=== PATIENT | female | born 1945 | race African-American/Black ===

== ENCOUNTER 2017-07-16 13:02 | Outpatient (POV) | payer MEDICARE, SELFPAY | END 2017-07-16 16:37 | disposition home or self-care (01) | PROVIDERS: PCP Family Medicine; Visit Provider Podiatrist | DX: I73.9 Peripheral vascular disease, unspecified (principal); E11.8 Type 2 diabetes mellitus with unspecified complications | CPT/HCPCS: 99203; G0127 ==

== ENCOUNTER 2017-10-18 14:15 | Outpatient (RCR) | payer MEDICARE, MEDICAID, SELFPAY | END 2018-01-28 10:46 | LOC: PT 14:15 | PROVIDERS: Visit Provider Internal Medicine | DX: Z95.5 Presence of coronary angioplasty implant and graft (principal) | CPT/HCPCS: 93798 ==

== ENCOUNTER → 2017-12-10 14:36 | Outpatient (CLI) | payer MEDICARE, MEDICAID, SELFPAY ==
[2017-12-10 14:54] LABS: Basophils % 0.6 % (0.1-2.0); Eosinophils # 0.5 K/mm3 (0.0-0.4); Eosinophils % 7.3 % (0.1-12.0); Hematocrit 45.4 % (37.0-47.0); Hemoglobin 14.4 g/dL (12.2-16.2); Lymphocytes # 1.7 K/mm3 (0.7-4.5); Lymphocytes % 27.1 K/mm3 (10-50); Mean Corpuscular HGB Conc 31.8 g/dL (31.8-35.4); Mean Corpuscular Hemoglobin 27.8 pg (27.0-31.2); Mean Corpuscular Volume 87.5 fl (81-99); Mean Platelet Volume 7.3 fl (7.4-10.4); Monocytes # 0.4 K/mm3 (0.1-1.0); Monocytes % 6.3 % (1.7-9.3); Neutrophils # 3.8 K/mm3 (1.8-7.8); Neutrophils % 58.7 % (37.0-80.0); Platelet Count 212 K/mm3 (142-424); Red Blood Count 5.19 M/mm3 (4.20-5.40); Red Cell Distribution Width 14.2 % (11.5-17.5); White Blood Count 6.4 K/mm3 (4.8-10.8)
[2017-12-10 16:18] LABS: Hemoglobin A1C 6.5 % (0.0-7.0)
[2017-12-10 17:16] LABS: Alanine Aminotransferase 23 U/L (12-78); Albumin Level 3.5 gm/dL (3.4-5.0); Albumin/Globulin Ratio 1.1 (1.1-1.8); Alkaline Phosphatase 154 U/L (46-116); Anion Gap 8.7 mEq/L (5-15); Aspartate Amino Transferase 20 U/L (15-37); Bilirubin,Total 0.6 mg/dL (0.2-1.0); Blood Urea Nitrogen 15 mg/dL (7-18); Carbon Dioxide 33 mmol/L (21.0-32.0); Chloride 106 mmol/L (98-107); Creatinine,Serum 0.73 mg/dL (0.55-1.02); Estimated Glomerular Filt Rate 78 ml/min (>60); GFR (African American) 95 ML/MIN (>60); Globulin 3.2 gm/dl (1.3-3.2); Glucose 91 mg/dL (74-106); Potassium 3.7 mmoL/L (3.5-5.1); Sodium 144 mmol/L (136-145); Thyroid Stimulating Hormone 0.85 uIU/ml (0.358-3.740); Total Protein,Serum 6.7 gm/dL (6.4-8.2)
[2017-12-12 11:53] LABS: Vitamin B12 832 pg/mL (232-1245)
== END ==
PROVIDERS: Visit Provider Psychiatry & Neurology Behavioral Neurology & Neuropsychiatry
DX: G30.9 Alzheimer's disease, unspecified (principal); E11.8 Type 2 diabetes mellitus with unspecified complications
CPT/HCPCS: 36415; 80053; 82607; 83036; 84443; 85025

== ENCOUNTER → 2018-01-28 15:47 | Outpatient (CLI) | payer MEDICARE, MEDICAID, SELFPAY ==
--- NOTE | 2018-01-28 15:49 | XR_ITS ---
XR foot wt bearing RT 3V HISTORY: Right foot pain ORDERING PHYSICIAN: Rosibel Rausch DPM PATIENT AGE: 72 years COMPARISON: 03/30/2016 FINDINGS: There has been an interval amputation at the junction of the mid and distal shaft of the first metatarsal. There is some mild calcific debris about the amputation site. No acute erosive changes are evident. There is generalized vascular calcification. Flexion deformity involves the toes. IMPRESSION: Status post amputation at the mid to distal shaft of the first metatarsal as described above
== END ==
PROVIDERS: PCP Family Medicine; Visit Provider Podiatrist
DX: Z51.89 Encounter for other specified aftercare (principal)
CPT/HCPCS: 73630

== ENCOUNTER → 2018-01-28 16:15 | Outpatient (CLI) | payer MEDICARE, MEDICAID, SELFPAY ==
[2018-01-28 16:28] LABS: Basophils % 0.6 % (0.1-2.0); Eosinophils # 0.4 K/mm3 (0.0-0.4); Eosinophils % 5.5 % (0.1-12.0); Hematocrit 49.5 % (37.0-47.0); Hemoglobin 15.5 g/dL (12.2-16.2); Lymphocytes # 1.5 K/mm3 (0.7-4.5); Lymphocytes % 20.6 K/mm3 (10-50); Mean Corpuscular HGB Conc 31.2 g/dL (31.8-35.4); Mean Corpuscular Hemoglobin 27.9 pg (27.0-31.2); Mean Corpuscular Volume 89.4 fl (81-99); Mean Platelet Volume 7.3 fl (7.4-10.4); Monocytes # 0.5 K/mm3 (0.1-1.0); Monocytes % 6.6 % (1.7-9.3); Neutrophils # 4.9 K/mm3 (1.8-7.8); Neutrophils % 66.7 % (37.0-80.0); Platelet Count 231 K/mm3 (142-424); Red Blood Count 5.54 M/mm3 (4.20-5.40); Red Cell Distribution Width 14.7 % (11.5-17.5); White Blood Count 7.3 K/mm3 (4.8-10.8)
[2018-01-28 17:58] LABS: Erythrocyte Sedimentation Rate 12 mm/hr (0-30)
[2018-01-28 19:42] LABS: Alanine Aminotransferase 25 U/L (12-78); Albumin/Globulin Ratio 1.1 (1.1-1.8); Alkaline Phosphatase 185 U/L (46-116); Anion Gap 10.8 mEq/L (5-15); Aspartate Amino Transferase 29 U/L (15-37); Bilirubin,Total 0.3 mg/dL (0.2-1.0); Blood Urea Nitrogen 16 mg/dL (7-18); Calcium 9.3 mg/dL (8.5-10.1); Carbon Dioxide 33 mmol/L (21.0-32.0); Chloride 103 mmol/L (98-107); Creatinine,Serum 0.84 mg/dL (0.55-1.02); Estimated Glomerular Filt Rate 67 ml/min (>60); GFR (African American) 81 ML/MIN (>60); Globulin 3.8 gm/dl (1.3-3.2); Glucose 81 mg/dL (74-106); Potassium 3.8 mmoL/L (3.5-5.1); Sodium 143 mmol/L (136-145); Total Protein,Serum 7.8 gm/dL (6.4-8.2)
[2018-01-28 19:49] LABS: C-Reactive Protein < 0.2 mg/L (0.0-0.9)
== END ==
PROVIDERS: PCP Family Medicine; Visit Provider Podiatrist
DX: Z51.89 Encounter for other specified aftercare (principal); E11.8 Type 2 diabetes mellitus with unspecified complications
CPT/HCPCS: 36415; 73630; 80053; 85025; 85651; 86140

== ENCOUNTER → 2018-02-20 10:06 | Outpatient (CLI) | payer MEDICARE, MEDICAID, SELFPAY ==
--- NOTE | 2018-02-20 10:11 | MR_ITS ---
MR foot RT wo/w con CLINICAL INDICATION: Recent amputation with redness and swelling on top of second toe ITS.REASON: osteomyelitis ORDERING PHYSICIAN: Rosibel Rausch DPM PATIENT AGE: 72 years TECHNIQUE: Routine multiplanar multiecho sequences are performed without and with contrast. COMPARISON: 01/28/2018 xray FINDINGS: There is been a prior amputation at the mid to distal aspect of the first metatarsal. Along the plantar aspect of the amputation site there is decrease T1 and T2 signal some of which may be due to balled up tendon. This does not demonstrate contrast enhancement. Some of this could be hypertrophic changes as well/postsurgical scarring There is flexion deformity involving the distal aspect of the second toe. There is ill definition of the distal phalanx of the second toe on the T1-weighted images and hypointense to the normal signal in the proximal mid phalanx becoming hyperintense on the T2-weighted images with some enhancement distally suggesting osteomyelitis. There is subcutaneous T2 signal along the plantar aspect of the second digit suggesting cellulitis. There is slight increased T2 signal involving the middle phalanx of the second toe with unremarkable T1 signal which may be due to some mild edema. No definite enhancement. IMPRESSION: 1. The findings are suspicious for osteomyelitis of the distal phalanx of the second toe with associated cellulitis. 2. Prior amputation of the mid to distal of the first metatarsal with nonspecific decreased T1 and T2 signal along the plantar surface of the amputation site which could be due to hypertrophic change or scarring along with balled up tendon 3. Mild edema of the middle phalanx of the second toe. Osteomyelitis here cannot totally be excluded as well
== END ==
PROVIDERS: PCP Family Medicine; Visit Provider Podiatrist
DX: E11.9 Type 2 diabetes mellitus without complications (principal); M86.8X7 Other osteomyelitis, ankle and foot
CPT/HCPCS: 73720; A9576

== ENCOUNTER → 2018-03-02 18:12 | Outpatient (REF) | payer MEDICARE, MEDICAID, SELFPAY ==
[2018-03-02 18:31] LABS: Microscopic, Urine URINE MICROSCOPIC (MICROSCOPIC)
[2018-03-02 19:13] LABS: Appearance,Urine SL CLOUDY (Clear); Bilirubin,Urine Negative (Negative); Blood, Urine 1+ (Negative); Color,Urine YELLOW (Yellow); Glucose,Urine (UA) TRACE (Negative); Ketones,Urine Negative (Negative); Leukocyte Esterase,Urine 2+ (Negative); Nitrate,Urine Negative (Negative); Protein,Urine Negative (Negative); Urobilinogen,Urine 0.2 EU/dl (0.2)
[2018-03-02 19:15] LABS: Amorphous Sediment,Urine Trace /lpf
== END ==
LOC: LAB 18:12
PROVIDERS: Visit Provider Family Medicine
DX: N39.0 Urinary tract infection, site not specified (principal)
CPT/HCPCS: 81001; 87086

== ENCOUNTER → 2018-03-03 15:15 | Outpatient (CLI) | payer MEDICARE, MEDICAID, SELFPAY ==
--- NOTE | 2018-03-03 15:46 | XR_ITS ---
XR chest 2V HISTORY: ITS.REASON: HTN,TYPE II DIABETES ORDERING PHYSICIAN: Rosibel Rausch DPM PATIENT AGE: 72 years COMPARISON: None FINDINGS: The cardiomediastinal silhouette and pulmonary vascularity are within normal limits. The lungs are clear without infiltrates, suspicious nodules, or pleural effusions. No acute bony abnormalities. Clips are present in the right axillary region. IMPRESSION: Negative chest, no acute finding
[2018-03-03 16:16] LABS: Basophils % 0.1 % (0.1-2.0); Eosinophils # 0.2 K/mm3 (0.0-0.4); Eosinophils % 2.6 % (0.1-12.0); Hematocrit 40.6 % (37.0-47.0); Hemoglobin 12.9 g/dL (12.2-16.2); Lymphocytes # 1.2 K/mm3 (0.7-4.5); Lymphocytes % 15.3 K/mm3 (10-50); Mean Corpuscular HGB Conc 31.7 g/dL (31.8-35.4); Mean Corpuscular Hemoglobin 28.2 pg (27.0-31.2); Mean Corpuscular Volume 89.1 fl (81-99); Mean Platelet Volume 7.5 fl (7.4-10.4); Monocytes # 0.4 K/mm3 (0.1-1.0); Monocytes % 5.2 % (1.7-9.3); Neutrophils # 6.2 K/mm3 (1.8-7.8); Neutrophils % 76.7 % (37.0-80.0); Platelet Count 185 K/mm3 (142-424); Red Blood Count 4.56 M/mm3 (4.20-5.40); Red Cell Distribution Width 15.6 % (11.5-17.5); White Blood Count 8.1 K/mm3 (4.8-10.8)
[2018-03-03 17:17] LABS: Alanine Aminotransferase 45 U/L (12-78); Albumin Level 3.4 gm/dL (3.4-5.0); Albumin/Globulin Ratio 1.2 (1.1-1.8); Alkaline Phosphatase 140 U/L (46-116); Anion Gap 10.6 mEq/L (5-15); Aspartate Amino Transferase 37 U/L (15-37); Bilirubin,Total 0.4 mg/dL (0.2-1.0); Blood Urea Nitrogen 16 mg/dL (7-18); Carbon Dioxide 30 mmol/L (21.0-32.0); Chloride 107 mmol/L (98-107); Creatinine,Serum 0.73 mg/dL (0.55-1.02); Estimated Glomerular Filt Rate 78 ml/min (>60); GFR (African American) 95 ML/MIN (>60); Globulin 2.9 gm/dl (1.3-3.2); Glucose 136 mg/dL (74-106); Potassium 3.6 mmoL/L (3.5-5.1); Sodium 144 mmol/L (136-145); Total Protein,Serum 6.3 gm/dL (6.4-8.2)
[2018-03-03 17:20] LABS: Hemoglobin A1C 6.5 % (0.0-7.0)
== END ==
PROVIDERS: Visit Provider Podiatrist
DX: Z01.818 Encounter for other preprocedural examination (principal); M86.9 Osteomyelitis, unspecified; Z79.899 Other long term (current) drug therapy
CPT/HCPCS: 36415; 71046; 80053; 83036; 85025

== ENCOUNTER → 2018-03-27 09:20 | Outpatient (CLI) | payer MEDICARE, MEDICAID, SELFPAY ==
--- NOTE | 2018-03-27 09:21 | XR_ITS ---
XR foot wt bearing RT 3V HISTORY: Follow-up surgery ITS.REASON: postop views ORDERING PHYSICIAN: Rosibel Rausch DPM PATIENT AGE: 72 years COMPARISON: 03/07/2018 FINDINGS: Status post amputation at the second metatarsophalangeal joint and at the distal aspect of the first metatarsal. The amputation site has an unremarkable appearance with no evidence of bony erosion.. Minimal soft tissue calcification is present at the distal aspect of the first metatarsal amputation site. IMPRESSION: Status post amputation at the second MTP and distal first metatarsal with no acute finding
== END ==
PROVIDERS: Visit Provider Podiatrist
DX: Z98.890 Other specified postprocedural states (principal); M79.671 Pain in right foot
CPT/HCPCS: 73630

== ENCOUNTER → 2018-07-08 06:57 | Outpatient (CLI) | payer MEDICARE, MEDICAID, SELFPAY ==
--- NOTE | 2018-07-08 06:59 | NM_ITS ---
History and Indications: Coronary artery disease, hypertension, diabetes, chest pain Procedure: Patient received a 0.4 mg of intravenous Lexiscan, resting heart rate was 78 bpm, resting blood pressure 135/69, with Lexiscan maximum heart rate achieved was 80 bpm is less than 85% of the maximum predicted heart rate and a blood pressure was 152/68. With Lexiscan no symptoms recorded Electrocardiogram: Resting electrocardiogram showed sinus rhythm first degree AV block premature atrial complexes nonspecific changes. Interventricular conduction delay, with Lexiscan less than 1.[address] segment depression noted from the baseline EKG. The EKG portion of the Lexiscan Myoview is nondiagnostic secondary to baseline abnormal EKG. Cardiac stress and resting SPECT images: Cardiac stress and rest SPECT images were obtained using Tc 99 Myoview 31.2 mCi at stress than 10.2 mCi at rest, gated SPECT further analysis of segmental wall motion and calculation of the ejection fraction also done. Cardiac stress and rest SPECT images show uniform myocardial activity without segmental perfusion abnormality, computer derived ejection fraction is over 65% with no regional wall motion abnormality, right ventricle is normal size and contractility. Conclusion: 1. The EKG portion of the Lexiscan Myoview is nondiagnostic. 2. No scintigraphic evidence of reversible ischemia seen, computer derived ejection fraction is over 65% regional wall motion abnormality, right ventricle is normal size and contractility. 3. Normal Lexiscan Myoview study
--- NOTE | 2018-07-08 08:30 | HMH.ITSHM ---
ASA BISOPROLOL CLOPIDOGREL DONEPEZIL ISOSORBIDE LANTUS LOSARTAN MIRTAZAPINE PRAVASTATIN TRAMADOL NOVOLOG
== END ==
PROVIDERS: PCP Family Medicine; Visit Provider Internal Medicine
DX: E11.9 Type 2 diabetes mellitus without complications (principal); F03.90 Unspecified dementia, unspecified severity, without behavioral disturbance, psychotic disturbance, mood disturbance, and anxiety; F17.200 Nicotine dependence, unspecified, uncomplicated; I11.9 Hypertensive heart disease without heart failure; I20.9 Angina pectoris, unspecified; I25.10 Atherosclerotic heart disease of native coronary artery without angina pectoris; I77.9 Disorder of arteries and arterioles, unspecified; R94.31 Abnormal electrocardiogram [ECG] [EKG]
CPT/HCPCS: 78452; 93017; A9502; J2785

== ENCOUNTER → 2018-08-27 11:51 | Outpatient (CLI) | payer MEDICARE, MEDICAID, SELFPAY ==
[2018-08-27 12:18] LABS: Basophils % 0.6 % (0.1-2.0); Eosinophils # 0.4 K/mm3 (0.0-0.4); Eosinophils % 4.6 % (0.1-12.0); Hematocrit 39.9 % (37.0-47.0); Hemoglobin 12.4 g/dL (12.2-16.2); Lymphocytes # 1.3 K/mm3 (0.7-4.5); Lymphocytes % 16.3 % (10-50); Mean Corpuscular HGB Conc 31.1 g/dL (31.8-35.4); Mean Corpuscular Hemoglobin 27.2 pg (27.0-31.2); Mean Corpuscular Volume 87.4 fl (81-99); Mean Platelet Volume 6.8 fl (7.4-10.4); Monocytes # 0.4 K/mm3 (0.1-1.0); Monocytes % 4.7 % (1.7-9.3); Neutrophils # 5.7 K/mm3 (1.8-7.8); Neutrophils % 73.8 % (37.0-80.0); Platelet Count 236 K/mm3 (142-424); Red Blood Count 4.56 M/mm3 (4.20-5.40); Red Cell Distribution Width 15.2 % (11.5-17.5); White Blood Count 7.7 K/mm3 (4.8-10.8)
[2018-08-27 13:10] LABS: Hemoglobin A1C 7.8 % (0.0-7.0)
[2018-08-27 14:18] LABS: Erythrocyte Sedimentation Rate 60 mm/hr (0-30)
[2018-08-27 16:04] LABS: Alanine Aminotransferase 41 U/L (12-78); Albumin Level 3.2 gm/dL (3.4-5.0); Albumin/Globulin Ratio 0.9 (1.1-1.8); Alkaline Phosphatase 153 U/L (46-116); Anion Gap -12.2 mEq/L (5-15); Aspartate Amino Transferase 37 U/L (15-37); Bilirubin,Total 0.4 mg/dL (0.2-1.0); Blood Urea Nitrogen 16 mg/dL (7-18); Calcium 8.9 mg/dL (8.5-10.1); Carbon Dioxide 33 mmol/L (21.0-32.0); Chloride 110 mmol/L (98-107); Creatinine,Serum 0.72 mg/dL (0.55-1.02); Estimated Glomerular Filt Rate 80 ml/min (>60); GFR (African American) 96 ML/MIN (>60); Globulin 3.6 gm/dl (1.3-3.2); Glucose 211 mg/dL (74-106); Sodium 128 mmol/L (136-145); Total Protein,Serum 6.8 gm/dL (6.4-8.2)
[2018-08-27 16:17] LABS: Potassium 2.8 mmoL/L (3.5-5.1)
[2018-08-28 00:33] LABS: C-Reactive Protein < 0.2 mg/L (0.0-0.9)
== END ==
PROVIDERS: Visit Provider Podiatrist
DX: Z51.89 Encounter for other specified aftercare (principal); E11.8 Type 2 diabetes mellitus with unspecified complications
CPT/HCPCS: 36415; 80053; 83036; 85025; 85651; 86140; 87070; 87077; 87186; 87205

== ENCOUNTER → 2018-09-23 12:56 | Outpatient (CLI) | payer MEDICARE, MEDICAID, SELFPAY | PROVIDERS: PCP Family Medicine; Visit Provider Podiatrist | DX: L97.512 Non-pressure chronic ulcer of other part of right foot with fat layer exposed (principal); L03.115 Cellulitis of right lower limb; E08.621 Diabetes mellitus due to underlying condition with foot ulcer; Z79.4 Long term (current) use of insulin ==

== ENCOUNTER → 2018-10-28 08:41 | Outpatient (CLI) | payer MEDICARE, MEDICAID, SELFPAY ==
--- NOTE | 2018-10-28 08:44 | MR_ITS ---
MR foot RT wo/w con HISTORY: Diabetic foot ulcer, prior amputation ITS.REASON: diabetic foot ulcer ORDERING PHYSICIAN: Rosibel Rausch DPM PATIENT AGE: 73 years Comparison: 03/27/2018 TECHNIQUE: Standard multiplanar multiecho sequences are performed without and with gadolinium enhancement. FINDINGS: There has been amputation at the distal aspect of the first metatarsal and at the second metatarsophalangeal junction. At the stump of the first metatarsal there is some lobular thickening of the tissues which is hypointense on the STIR images and isointense on the T1-weighted images. This may be due to an area of callus formation or fibrosis/scarring. This does not demonstrate contrast enhancement. This area measures approximately 2 x 1.8 cm No abnormal signal intensity evident that would indicate osteomyelitis. No abscess. No fracture or other significant anomalies. There is generalized motion artifact which does decrease sensitivity of the exam. IMPRESSION: Status post a dilatation at the distal aspect of the first metatarsal with area of callus formation versus scarring or fibrosis at the distal aspect of the first metatarsal. Status post amputation at the second MTP junction No convincing evidence of osteomyelitis
== END ==
PROVIDERS: PCP Family Medicine; Visit Provider Podiatrist
DX: L97.512 Non-pressure chronic ulcer of other part of right foot with fat layer exposed; Z79.4 Long term (current) use of insulin; L89.610 Pressure ulcer of right heel, unstageable; I77.9 Disorder of arteries and arterioles, unspecified; E11.621 Type 2 diabetes mellitus with foot ulcer
CPT/HCPCS: 73720; A9576

== ENCOUNTER → 2018-12-10 14:27 | Outpatient (CLI) | payer MEDICARE, MEDICAID, SELFPAY ==
--- NOTE | 2018-12-10 14:32 | US_ITS ---
US Arterial Ankle Brachial Ind History: ITS.REASON: Diabetic ulcers, smoker, hypertension, peripheral vascular disease, bilateral claudication, bilateral ulcers ORDERING PHYSICIAN: Rosibel Rausch DPM PATIENT AGE: 73 years TECHNIQUE: Segmental pressures obtained of both right and left leg. These are compared to brachial blood pressure to yield index at each level sampled including summary KAVITA. The data sheets from the procedure are available in PACS FINDINGS Rest study only performed today No prior studies available for comparison. Blood pressures reported are in millimeters mercury. RIGHT LEG KAVITA = 0.4. RIGHT LEG TBI=first and second toe amputated Brachial BP: 168 Thigh BP: 82 Calf BP: 77 Ankle PT: Not obtained Ankle DP : 62 LEFT LEG KAVITA = 0.6 LEFT LEG TBI= 0.4 Brachial BPD: 167 Thigh BP: 76 Calf BP: 83 Ankle PT:Not obtained due to multiple ulcers Ankle DP: 104 Digit = 58 Pulses and waveforms: Diminished, absent posterior tibial pulse in right lower extremity IMPRESSION: The right KAVITA is low at 0.4 indicating severe peripheral arterial disease The left KAVITA is moderately low at 0.6 indicating moderate arterial disease
== END ==
PROVIDERS: PCP Family Medicine; Visit Provider Podiatrist
DX: E08.621 Diabetes mellitus due to underlying condition with foot ulcer (principal); I73.9 Peripheral vascular disease, unspecified; I77.9 Disorder of arteries and arterioles, unspecified; L89.610 Pressure ulcer of right heel, unstageable; L97.512 Non-pressure chronic ulcer of other part of right foot with fat layer exposed
CPT/HCPCS: 93922

== ENCOUNTER 2018-12-30 16:40 | Observation (INO) ==
[2018-12-30 17:15] LABS: Basophils % 0.4 % (0.1-2.0); Eosinophils # 0.4 K/mm3 (0.0-0.4); Eosinophils % 4.3 % (0.1-12.0); Hematocrit 42.9 % (37.0-47.0); Hemoglobin 13.1 g/dL (12.2-16.2); Lymphocytes # 1.4 K/mm3 (0.7-4.5); Mean Corpuscular HGB Conc 30.6 g/dL (31.8-35.4); Mean Corpuscular Hemoglobin 25.4 pg (27.0-31.2); Mean Platelet Volume 6.8 fl (7.4-10.4); Monocytes # 0.7 K/mm3 (0.1-1.0); Neutrophils % 71.3 % (37.0-80.0); Platelet Count 248 K/mm3 (142-424); Red Blood Count 5.17 M/mm3 (4.20-5.40); Red Cell Distribution Width 15.7 % (11.5-17.5); White Blood Count 8.5 K/mm3 (4.8-10.8)
--- NOTE | 2018-12-30 17:30 | Procedure Note ---
[facility] Wound Procedure - Subjective History Subjective: B/L LE arterial ulcers - Wound Left Lower Anterior Distal [place] Wound Type: arterial ulcers Is This a Chronic Wound: Yes Wound Staging: Unstageable
[2018-12-30 17:31] LABS: Albumin Level 2.9 gm/dL (3.4-5.0); Albumin/Globulin Ratio 0.6 (1.1-1.8); Anion Gap 10.8 mEq/L (5-15); Bilirubin,Total 0.3 mg/dL (0.2-1.0); C-Reactive Protein 3.3 mg/L (0.0-0.9); Calcium 9.1 mg/dL (8.5-10.1); Globulin 4.6 gm/dl (1.3-3.2); Potassium 3.8 mmoL/L (3.5-5.1); Total Protein,Serum 7.5 gm/dL (6.4-8.2)
--- NOTE | 2018-12-30 17:36 | Progress Note ---
Subjective Date: 12/30/18 Time: 17:32 Principal diagnosis: B/L LE arterial ulcers, cellulitis Interval history: Mrs. Mendez presents to the ER today from group home for multiple arterial wound sites on both lower extremities. Patient is demented. She c/o some pain to the legs. Family at bedside. They report worsening discoloration and new draining wounds. Significant past medical history including atherosclerotic Heart Disease, Coronary Artery Disease, Cerebrovascular Accident, Diabetes Mellitus Type 2, Hypertension, Peripheral Artery Disease, Peripheral Vascular Disease. Patient had peripheral st[place] [address] Vazquez. The stents occluded and she was seen by Dr. Manjarrez, vascular surgeon in [place]. He had a duplex done 12/18/18. Conclusion was SFA-popliteal artery is occluded with no successful revascularization possible. Low healing potential. Patient high risk for above-knee amputation. PN: Obj Ex Vital signs: Temp Pulse Resp BP Pulse Ox 98.4 F 76 18 154/59 H 100 12/30/18 16:41 12/30/18 16:41 12/30/18 16:41 12/30/18 16:41 12/30/18 16:41 - Constitutional no acute distress - Routine HEENT Exam Head: Present: normocephalic - Routine Neck Exam Present: supple - Routine Respiratory Exam Absent: respiratory distress - Routine Cardiovascular Exam Absent: JVD - Routine Abdominal Exam Present: soft. Absent: guarding - Routine Rectal Exam Patient deferred: visual exam - Routine Exam Patient deferred: external exam - Routine Extremities Exam Present: edema, extremity cold to touch, amputation. Absent: pulses intact, normal capillary refill - Detailed Lower Extremity Exam Lower leg: Bilateral swelling, Bilateral tenderness, Bilateral wound Ankle: Bilateral swelling, Bilateral wound Foot/Toes: Right calcaneal tenderness, Right tenderness, Right wound, Bilateral erythema, Bilateral swelling Comments: B/l LE cold with CFT delayed. Weakly palpable pedal pulses, bilaterally. Right > left foot edema and erythema. Pain to dorsal midfoot and right lateral heel. Wound noted to right dorsal midfoot and heel. Heel has devin wound maceration, boggy and purulence. New arterial wound noted to right anterior renner. The area has fluctance and purulence (wound culture taken). There are arterial wounds noted to left anterior renner. Darkening skin color b/l. Light touch protective sensation diminished. Previous right 1-2 toe amps. Progress Note: A&P (1) Bilateral leg pain Status: Acute Current Visit: No (2) Diabetic foot ulcers Status: Acute Current Visit: No (3) Diabetic neuropathy Status: Acute Current Visit: No (4) Edema Status: Acute Current Visit: No (5) Dementia Status: Chronic Current Visit: No (6) PAD (peripheral artery disease) Status: Chronic Current Visit: No (7) Tobacco dependence syndrome Status: Chronic Current Visit: No Assessment and Plan for All Diagnoses:: Right dorsal midfoot and b/l anterior renner arterial ulcers, right heel pressure ulcer: Discussed with the patient/family the importance of controlling the infection. I explained without good blood flow the antibiotics will not fully get to the wound sites. I explained the results of the vascular duplex with Dr. Manjarrez in [place]. There is low healing potential and is high risk for [id number] amputation. They verbalized understanding. I explained that if we surgically debride the arterial ulcers there is a chance that they will not heal, can get bigger and cause worsening/new arterial wounds. Infection is not controlled there is a chance that it could make her septic. I also explained that she may be high risk to have anesthesia for amputation surgery. Power of Fret[employer] Inspector was notified, present at bedside. The family will discuss plan of care today and tomorrow. They will also discuss whether they want her to have a different CODE STATUS. 1. Dressing applied: betadine DSD 2. Off load heels to prevent further breakdown 3. Discuss POC with Dr. Delgado 4. Consult Dr. Campoverde for possible AKA
--- NOTE | 2018-12-30 18:08 | Emergency Department Note ---
ED Disposition Clinical Impression: Bilateral leg ulcer Qualifiers: Non-pressure ulcer stage: unspecified non-pressure ulcer stage Qualified Code(s): L97.919 - Non-pressure chronic ulcer of unspecified part of right lower leg with unspecified severity Disposition: Admitted as Observation Condition on Discharge: Fair - Critical Care Critical Care Time: No Attestation: On 12/30/18, the high probability of a clinically significant, sudden or life threatening deterioration of the following system(s) required my full and direct attention, intervention and personal management. The time I documented below is in addition to time spent performing reported procedures but includes the following listed in this critical care notation. Medical Decision Making - Wesley Inquiry Pt receiving controlled substance: No Vital Signs: 12/30/18 16:41 12/30/18 19:33 12/30/18 19:35 Temperature 98.4 F 98.5 F Temperature Source Oral Oral Pulse Rate 74 Pulse Rate [Right Brachial] 76 Respiratory Rate 18 15 Blood Pressure 153/67 H Blood Pressure [Right Arm] 154/59 H Blood Pressure Mean [Right Arm] 90 Blood Pressure Source [Right Arm] Automatic Cuff Blood Pressure Position [Right Arm] Supine 02 Sat by Pulse Oximetry 100 Oxygen Delivery Method Room Air Room Air Room Air - Lab Data Lab Results 12/30/18 17:00: WBC 8.5, RBC 5.17, Hgb 13.1, Hct 42.9, MCV 83.0, MCH 25.4 L, MCHC 30.6 L, RDW 15.7, Plt Count 248, MPV 6.8 L, Neut % (Auto) 71.3, Lymph % (Auto) 16.0, Otero % (Auto) 8.0, Eos % (Auto) 4.3, Baso % (Auto) 0.4, Neut # (Auto) 6.0, Lymph # (Auto) 1.4, Otero # (Auto) 0.7, Eos # (Auto) 0.4, Baso # (Auto) 0.0 12/30/18 17:00: ESR 34 H 12/30/18 17:00: Sodium 140, Potassium 3.8, Chloride 102, Carbon Dioxide 31, Anion Gap 10.8, BUN 14, Creatinine 0.78, Estimated Creat Clear 56, Estimated GFR 72, Est GFR ( Amer) 88, Glucose 154 H, Calcium 9.1, Total Bilirubin 0.3, AST 30, ALT 42, Alkaline Phosphatase 195 H, C-Reactive Protein 3.3 H, Total Protein 7.5, Albumin 2.9 L, Globulin 4.6 H, Albumin/Globulin Ratio 0.6 L 12/30/18 17:00: Lactate 1.1 Result diagrams: 12/30/18 17:00 12/30/18 17:00 Orders (Tests/Meds): ED MEDICATIONS Generic Name Dose Route Start Last Admin Trade Name Rob PRN Reason Stop Dose Admin Acetaminophen 500 mg 12/30/18 20:02 Tylenol 500mg Tablet PO 01/29/19 20:01 Q6H PRN Fever > 100.4 Hydrocodone Bitart/Acetaminophen 1 tab 12/30/18 21:00 12/30/18 20:37 Sanford 5/325mg Tablet PO 01/29/19 20:59 1 tab BID ADRIANE Administration Amlodipine Besylate 7.5 mg 12/31/18 09:00 Norvasc 2.5mg Tablet PO 01/30/19 08:59 DAILY ADRIANE Clopidogrel Bisulfate 75 mg 12/31/18 09:00 Plavix 75mg Tablet PO 01/30/19 08:59 DAILY ADRIANE Donepezil HCl 10 mg 12/30/18 20:02 Aricept 10mg Tablet PO 01/29/19 20:01 QHS [facility] Insulin Human Lispro 0 unit 12/30/18 21:00 12/30/18 20:37 Humalog 100 Units/Ml 3ml Vial (Ssi) SQ 01/29/19 20:59 Not Given ACHS ADRIANE Protocol Potassium Chloride 20 meq 12/31/18 09:00 Klor-Con 20meq Tablet PO 01/30/19 08:59 DAILY ADRIANE Sertraline HCl 50 mg 12/30/18 20:02 Zoloft 50mg Tablet PO 01/29/19 20:01 QHS ADRIANE ORDERS Category Date Time Status Consult to Physician [CONS] Routine Cons 12/30/18 20:02 Ordered Fibula/tibia XR right 2 views [XR tibia fibula RT 2V] Exams 12/30/18 17:01 Taken Stat XR foot RT min 3V Routine Exams 12/30/18 17:31 Taken XR tibia fibula LT 2V Stat Exams 12/30/18 17:01 Taken Blood Culture Stat Micro 12/30/18 17:00 Received Wound Culture and Gram Stain Stat Micro 12/30/18 17:29 Received ECG Request by /Antonio Stat Y 12/30/18 17:01 Stop Req - Radiology Data #1 Image(s): Tib/Fib (Bilateral), Foot/Toes (Right) Image Reviewed: Yes I reviewed the patient's radiology image Tib-fib negative bilaterally. No signs of osteomyelitis. Right foot shows previous amputation of second toe and first toe along with distal first metatarsal. No signs of osteomyelitis. Medical Decision Narrative: Dr. Delgado saw the patient in the emergency department before my examination. He requests no antibiotics unless alarmingly elevated white blood cell count. Consultation to Dr. Campoverde. General Adult HPI - General Chief complaint: Extremity Problem,Nontraumatic Stated complaint: Foot ulcers Time Seen by Provider: 12/30/18 17:55 Mode of Arrival: EMS Limitations: Physical Limitations Description of Symptoms (Recalled from ER Triage Doc. by RN): Ulcer on roght foot - History of Present Illness HPI narrative: Br[facility] ulcers on her legs, possible need for amputation. History obtained from patient and family and Dr. Delgado. Family states ulcers have been present since before . Patient currently denies any pain from her legs. Denies fever. Has been treated by Dr. Rausch. Has had prior stents in her legs for peripheral vascular disease, but is not felt to be candidate for further revascularization procedures. - Related Data Home Medications Medication Instructions Recorded Confirmed clopidogrel 75 mg tablet 75 mg PO DAILY tab 02/04/18 12/30/18 donepezil 10 mg tablet 10 mg PO QHS 03/03/18 12/30/18 acetaminophen 500 mg tablet 500 mg PO Q6H PRN 07/01/18 12/30/18 Insulin Aspart [Novolog] 2 unit SQ ACHS 09/04/18 12/30/18 Insulin Glargine,Hum.rec.anlog 20 units SQ HS 09/04/18 12/30/18 [Insulin Glargine 100 Units/mL 3mL flexpen] Potassium Chloride [Klor-con 20 20 meq PO DAILY 09/04/18 12/30/18 mEq tablet] amlodipine 2.5 mg tablet 7.5 mg PO DAILY tab 12/10/18 12/30/18 hydrocodone 5 mg-acetaminophen 325 1 tab PO BID tab 12/15/18 12/30/18 mg tablet sertraline 50 mg tablet 50 mg PO QHS 15 Days #15 tab 12/15/18 12/30/18 Allergies Allergy/AdvReac Type Severity Reaction Status Date / Time codeine Allergy Unknown Verified 12/30/18 16:[address] [facility] History - Hepatitis A Screen Drug use history?: No High risk sexual behaviors?: No History of sexually transmitted infection?: No Currently employed?: No Childcare worker?: No Do you have indoor plumbing?: Yes Do you have electricity?: Yes Attestation statement:: This patient has been screened for Hepatitis A risk factors. I have reviewed the patient's past medical history: Yes Medical History: Reports:: Atherosclerotic Heart Disease, Coronary Artery Diseas e, Cerebrovascular Accident, Diabetes Mellitus Type 2, Hypertension, Peripheral Artery Disease, Peripheral Vascular Disease, Urinary Tract Infection Denies:: Seizures Other Medical History: Denies: Blood Transfusion Reaction Comment: Osteomyelitis of Vertebra, Cerebral Infarction Other Surgeries: Yes: Other Amputation: Yes (great hallux and second toe of the right foot ) Fractures: No Comment: 3 stents in heart, 3 stents in both legs. - Social History Smoking Status: Former smoker Tobacco Type: cigarettes # Packs/Day (cigarettes): 1 Alcohol Intake: never Alcohol Intake Frequency:: other Substance Use Type: denies use Occupational Status: disabled Family Hx:: Non-contributory ROS Obtained: Yes Systems reviewed as appropriate & no additional complaints - Constitutional Constitutional: Denies fever(s) - Cardiovascular Cardiovascular: Denies chest pain - Respiratory Respiratory: No dyspnea - Gastrointestinal Gastrointestingal: Denies: abdominal pain - Musculoskeletal Musculoskeletal: Reports as per HPI Physical Exam - General General appearance: alert, in no apparent distress - Head Head exam: atraumatic, normocephalic - Eye Eye exam: Present: normal appearance, PERRL, EOMI - ENT ENT exam: Present: mucous membranes moist - Neck Neck exam: Present: normal inspection, trachea midline - Chest Chest inspection: Present: normal inspection, symmetric chest wall rise - Respiratory Respiratory exam: Present: normal lung sounds bilaterally. Absent: respiratory distress - Cardiovascular Cardiovascular exam: Present: regular rate, normal rhythm, normal heart sounds - Abdominal Exam Abdominal exam: Present: soft. Absent: distention, tenderness - Extremities Exam Extremities exam: Present: other (See below) - Neurological Exam Neurological exam: Present: alert - Psychiatric Psychiatric exam: Present: normal affect, normal mood - Skin Skin exam: Present: warm, dry - Other Other exam information: Dr. Rausch saw the patient prior to my arrival and has bandaged her legs already. Therefore wounds are not visible to me. I did not take down bandages again since they were just bandaged by her. Her exam is noted below: Lower leg: Bilateral swelling, Bilateral tenderness, Bilateral wound Ankle: Bilateral swelling, Bilateral wound Foot/Toes: Right calcaneal tenderness, Right tenderness, Right wound, Bilateral erythema, Bilateral swelling Comments: B/l LE cold with CFT delayed. Weakly palpable pedal pulses, bilaterally. Right > left foot edema and erythema. Pain to dorsal midfoot and right lateral heel. Wound noted to right dorsal midfoot and heel. Heel has devin wound maceration, boggy and purulence. New arterial wound noted to right anterior renner. The area has fluctance and purulence (wound culture taken). There are arterial wounds noted to left anterior renner. Darkening skin color b/l. Light touch protective sensation diminished. Previous right 1-2 toe amps.
--- NOTE | 2018-12-31 07:30 | History & Physical Report ---
*Admission Date: 12/30/18 *Chief complaint: Leg wounds *History of present illness: 73-year-old female with dementia, diabetes mellitus, peripheral arterial disease was sent to the emergency department yesterday afternoon because of wounds on both lower extremities that were concerning for becoming gangrenous. Patient has known peripheral arterial disease and earlier this month was seen by a vascular surgeon who stated there were no further interventions that could be done to help the patient's lower extremity circulation to aid with wound healing. Should wounds become more severe decision about amputations would have to be made. Staff at patient's snf has been watching her wounds closely and there had been some new wounds as well as a growth in a wound that has been on the dorsum of her right foot. The wounds were foul-smelling and patient was sent to the emergency department. I had been contacted ahead of time about the patient's transfer to the emergency department. Patient has been seeing Dr. Cardona over her right foot wounds and Dr. Cardona was also aware. Dr. Cardona saw the patient in the ER. Workup in the ER showed a normal white blood cell count, with a sed rate of 34, normal electrolytes. X-rays did not show any signs of osteomyelitis. [facility] History I have reviewed the patient's past medical history: Yes Medical History: Reports:: Atherosclerotic Heart Disease, Coronary Artery Disease, Cerebrovascular Accident, Diabetes Mellitus Type 2, Hypertension, Peripheral Artery Disease, Peripheral Vascular Disease, Urinary Tract Infection Denies:: Seizures *Have you ever received a pneumonia vaccine?: Yes *Have you received a flu vaccine this season?: Yes Other Medical History: Denies: Blood Transfusion Reaction Other Surgeries: Yes: Cardiac Catheterization, Other Amputation: Yes (great hallux and second toe of the right foot ) Fractures: No - *Social History Smoking Status: Former smoker Tobacco Type: cigarettes # Packs/Day (cigarettes): 1 Alcohol Intake: never Alcohol Intake Frequency:: other Substance Use Type: denies use *Occupational Status:: disabled Housing: snf *Travel in the last 8 weeks: None - Psychiatric History Expresses thoughts of harming self/others: None Suicide Plan Description: No Plan Family Hx:: Non-contributory Review of Systems - Review of Systems Review of systems:: pertinent systems reviewed and negative unless documented below - Constitutional Denies body ache(s), Denies chills, Denies fever(s) - ENT Denies abnormal hearing - *Cardiovascular Denies chest pain, Denies chest pain at rest, Denies chest pain with activity - *Respiratory Denies change in phlegm color, Denies chest congestion, Denies cough - *Gastrointestinal Denies belching, Denies bloating - *Musculoskeletal Reports abnormal walking - *Neurologic Reports confusion, Denies frequent falls - Psychiatric Reports confusion - Hematologic/Lymphatic Denies easy bleeding - Allergic/Immunologic Denies GI upset with certain foods Meds Home Medications Medication Instructions Recorded Confirmed Type clopidogrel 75 mg tablet 75 mg PO DAILY tab 02/04/18 12/31/18 History donepezil 10 mg tablet 10 mg PO DAILY 03/03/18 12/31/18 History acetaminophen 500 mg tablet 500 mg PO Q6HP PRN 07/01/18 12/31/18 History Insulin Aspart [Novolog] 2 unit SQ ACHS 09/04/18 12/31/18 History Insulin Glargine,Hum.rec.anlog 20 units SQ HS 09/04/18 12/31/18 History [Insulin Glargine 100 Units/mL 3mL flexpen] Potassium Chloride [Klor-con 20 20 meq PO DAILY 09/04/18 12/31/18 History mEq tablet] amlodipine 2.5 mg tablet 7.5 mg PO DAILY tab 12/10/18 12/31/18 History hydrocodone 5 mg-acetaminophen 325 1 tab PO BID tab 12/15/18 12/31/18 History mg tablet sertraline 50 mg tablet 50 mg PO QHS 15 Days #15 tab 12/15/18 12/31/18 History Sulfamethoxazole/Trimethoprim 1 each PO BID 12/31/18 12/31/18 History [Bactrim DS tablet] Allergies Allergy/AdvReac Type Severity Reaction Status Date / Time codeine Allergy Unknown Verified 12/30/18 16:49 Exam Vital signs and Labs for Last 24 Hours: Temp Pulse Resp BP Pulse Ox 98.9 F 84 18 165/82 H 91 L 12/31/18 04:00 12/31/18 04:00 12/31/18 04:00 12/31/18 04:00 12/31/18 04:00 Laboratory Results - last 24 hr 12/30/18 17:00: WBC 8.5, RBC 5.17, Hgb 13.1, Hct 42.9, MCV 83.0, MCH 25.4 L, MCHC 30.6 L, RDW 15.7, Plt Count 248, MPV 6.8 L, Neut % (Auto) 71.3, Lymph % (A uto) 16.0, [place] % (Auto) 8.0, Eos % (Auto) 4.3, Baso % (Auto) 0.4, Neut # (Auto) 6.0, Lymph # (Auto) 1.4, [place] # (Auto) 0.7, Eos # (Auto) 0.4, Baso # (Auto) 0.0 12/30/18 17:00: ESR 34 H 12/30/18 17:00: Sodium 140, Potassium 3.8, Chloride 102, Carbon Dioxide 31, Anion Gap 10.8, BUN 14, Creatinine 0.78, Estimated Creat Clear 56, Estimated GFR 72, Est GFR ( Amer) 88, Glucose 154 H, Calcium 9.1, Total Bilirubin 0.3, AST 30, ALT 42, Alkaline Phosphatase 195 H, C-Reactive Protein 3.3 H, Total P rotein 7.5, Albumin 2.9 L, Globulin 4.6 H, Albumin/Globulin Ratio 0.6 L 12/30/18 17:00: Lactate 1.1 12/30/18 20:25: POC Glucose 137 H 12/31/18 05:52: POC Glucose 174 H I & O for Last 24 hours: Intake & Output 12/28/18 12/29/18 12/30/18 12/31/18 11:59 11:59 11:59 11:59 Intake Total 579 / 579 Balance 579 / 579 Weight 150 lb 4 oz Microbiology Reports for the Last 24 Hours: Microbiology 12/30/18 17:29 Leg,Right Gram Stain - Final 12/30/18 17:29 Leg,Right Wound Culture - Preliminary Narrative: Patient is awake and alert laying in bed this morning. Oropharynx is moist. Neck is without lymphadenopathy or carotid bruits. Lungs are clear to auscultation. Heart has a regular rate and rhythm. Abdomen is soft and nontender. Lower extremities have wound dressings from the mid renner to the ankle on the left foot and from the mid renner to the foot on the right. I have cut and paste Dr. Cardona's assessment of her lower extremities below: B/l LE cold with CFT delayed. Weakly palpable pedal pulses, bilaterally. Right > left foot edema and erythema. Pain to dorsal midfoot and right lateral heel. Wound noted to right dorsal midfoot and heel. Heel has devin wound maceration, boggy and purulence. New arterial wound noted to right anterior renner. The area has fluctance and purulence (wound culture taken). There are arterial wounds noted to left anterior renner. Darkening skin color b/l. Light touch protective sensation diminished. Previous right 1-2 toe amps. Assessment and Plan (1) Diabetic foot ulcers Current visit: No Status: Acute Qualifiers: Diabetic foot ulcer location: unspecified part of foot Diabetes mellitus type: other specified (including GAYLE) Laterality: unspecified laterality Non-pressure ulcer stage: unspecified non-pressure ulcer stage Qualified Code (s): E13.621 - Other specified diabetes mellitus with foot ulcer; L97.509 - Non- pressure chronic ulcer of other part of unspecified foot with unspecified severity Category: Medical Code(s): E11.621 - Type 2 diabetes mellitus with foot ulcer; L97.509 - Non-pressure chronic ulcer of other part of unspecified foot with unspecified severity (2) PAD (peripheral artery disease) Current visit: No Status: Chronic Category: Medical Code(s): I73.9 - Peripheral vascular disease, unspecified (3) Bilateral leg pain Current visit: No Status: Acute Category: Medical Code(s): M79.604 - Pain in right leg; M79.605 - Pain in left leg (4) Diabetic neuropathy Current visit: No Status: Acute Category: Medical Code(s): E11.40 - Type 2 diabetes mellitus with diabetic neuropathy, unspecified (5) Edema Current visit: No Status: Acute Qualifiers: Edema type: localized Qualified Code(s): R60.0 - Localized edema Category: Medical Code(s): R60.9 - Edema, unspecified (6) Dementia Current visit: No Status: Chronic Qualifiers: Dementia type: unspecified type Dementia behavioral disturbance: without behavioral disturbance Qualified Code(s): F03.90 - Unspecified dementia without behavioral disturbance Category: Medical Code(s): F03.90 - Unspecified dementia without behavioral disturbance (7) Tobacco dependence syndrome Current visit: No Status: Chronic Category: Medical Code(s): F17.200 - Nicotine dependence, unspecified, uncomplicated - Assessment and plan all Dx Assessment and Plan for all problems:: I attempted to explain to the patient this morning the severity of her problem. Treatment options potentially include [id number] amputations versus likely natural progression of her wounds from peripheral arterial disease and the poor healing associated with that with ultimately wounds likely becoming infected which would lead to . In discussion with the patient at this time she was opposed to bilateral [id number] amputations. She indicated she would be "okay" with having one leg amputated. If recommendation was both knees be amputated then she would prefer to let nature take its course and if the wounds did not heal and became infected she understood that this would lead to her . Her power of corporate associate attorney which is her sister, Eliud Irizarry, was not present this morning during this discussion. Dr. Cardona is aware of the patient's admission. Dr. Campoverde has been consulted.
--- NOTE | 2018-12-31 07:36 | Pharmacy Consult Notes ---
[facility] Pharmacy VTE Monitoring - Patient Demographics Admission date: 12/30/18 Report Date: 12/31/18 Time: 07:36 Allergies/Adverse Reactions: Patient Allergies codeine Allergy (Unknown, Verified 12/30/18 16:49) Height: 1.6 m Weight: 68.152 kg Patient Problems: Current Active Problems Bilateral leg ulcer (Acute) - VTE Risk Labs: VTE Related Lab Results Hgb 13.1 g/dL (12.2-16.2) 12/30/18 17:00 Hct 42.9 % (37.0-47.0) 12/30/18 17:00 Plt Count 248 K/mm3 (142-424) 12/30/18 17:00 BUN 14 mg/dL (7-18) 12/30/18 17:00 Creatinine 0.78 mg/dL (0.55-1.02) 12/30/18 17:00 Estimated Creat Clear 56 mL/min (50-200) 12/30/18 17:00 VTE Score: 3 VTE Risk Level: Low Risk - Prophylaxis VTE Prophylaxis Ordered?: Yes Types of VTE Prophylaxis: TEDS Knee High Location of Applied Device: Bilateral Lower Extremeties - VTE Diagnosis Confirmed Treatment or plan recommended: Continue Current Treatment
--- NOTE | 2018-12-31 15:41 | Consult Report ---
*Admission Date: 12/30/18 *Chief complaint: BLE pain, dysvascular limbs *History of present illness: Mrs. Mendez is a patient well-known to Dr. Rausch, who has been followed for a few years for management of chronic lower extremity ulcerations. She has severe peripheral vascular disease with a prior history of arterial stenting by Dr. Vazquez. She has recently been evaluated by Dr. Manjarrez, a vascular surgeon in [place]; he concluded that SFApopliteal arteries were occluded and there were no potential revascularization options at this point. She was determined to have low healing potential for any lower extremity wound care/debridement, with virtually little to no blood flow distal to the knee. She has scattered ulcerations from the mid tibia distally on bilateral lower extremities that are not only failing to heal but may potentially now be infected. [facility] the [facility] yesterday with an increasingly dusky appearance to her skin and a foul odor to her wounds. She has been reportedly stable at the [facility] with no fevers, no hypotension, no evidence of sepsis. ABIs were done recently by Dr. Rausch that shows very poor flow in BLE; right lower extremity showed ABIs of 0.49, 0.46, and 0.37 in the thigh, calf and ankle respectively with no toe pressure measurable. The left side had 0.45, 0.49, 0.62, and 0.35 before thigh, calf, ankle and toe KAVITA, respectively. The patient reports pain primarily in the right lower extremity but also in the left to a lesser extent. She is currently comfortable, but she has been reported to be in severe pain at the [facility]. She is pleasantly demented and has intermittent episodes of lucidity and confusion. When I saw her today, she asked me what day it was, where she was at, and what Dr. Delgado looks like. Her past medical history is significant for coronary artery disease, diabetes, hypertension, peripheral vascular disease, and history of CVA. The patient's paperwork from the [facility] states that she is a DNR but there is some confusion regarding her code status with her family. Her power of claims attorney is her nephew Kenny, but her sister Eliud makes many of her medical decisions. Review of Systems - Review of Systems Review of systems:: pertinent systems reviewed and negative unless documented below - *Neurologic Reports abnormal walking, Reports confusion, Denies abnormal hearing, Denies frequent falls [facility] History Medical History: Reports:: Atherosclerotic Heart Disease, Coronary Artery Disease, Cerebrovascular Accident, Diabetes Mellitus Type 1, Diabetes Mellitus Type 2, Hypertension, Peripheral Artery Disease, Peripheral Vascular Disease, Urinary Tract Infection Denies:: Seizures *Have you ever received a pneumonia vaccine?: Yes *Have you received a flu vaccine this season?: Yes Other Medical History: Denies: Blood Transfusion Reaction Other Surgeries: Yes: Cardiac Catheterization, Other Amputation: Yes (great hallux and second toe of the right foot ) Fractures: No - *Social History Smoking Status: Former smoker Tobacco Type: cigarettes # Packs/Day (cigarettes): 1 Alcohol Intake: never Alcohol Intake Frequency:: other Substance Use Type: denies use *Occupational Status:: disabled Housing: [facility] *Travel in the last 8 weeks: None - Psychiatric History Expresses thoughts of harming self/others: None Suicide Plan Description: No Plan Family Hx:: Non-contributory Meds Home Medications Medication Instructions Recorded Confirmed Type clopidogrel 75 mg tablet 75 mg PO DAILY tab 02/04/18 12/31/18 History donepezil 10 mg tablet 10 mg PO DAILY 03/03/18 12/31/18 History acetaminophen 500 mg tablet 500 mg PO Q6HP PRN 07/01/18 12/31/18 History Insulin Aspart [Novolog] 0 unit SQ ACHS 09/04/18 12/31/18 History Insulin Glargine,Hum.rec.anlog 20 units SQ HS 09/04/18 12/31/18 History [Insulin Glargine 100 Units/mL 3mL flexpen] Potassium Chloride [Klor-con 20 20 meq PO DAILY 09/04/18 12/31/18 History mEq tablet] hydrocodone 5 mg-acetaminophen 325 1 tab PO BID tab 12/15/18 12/31/18 History mg tablet sertraline 50 mg tablet 50 mg PO HS 15 Days #15 tab 12/15/18 12/31/18 History Amlodipine Besylate [Norvasc 2.5mg 7.5 mg PO DAILY 12/31/18 12/31/18 History tablet] Allergies Allergy/AdvReac Type Severity Reaction Status Date / Time codeine Allergy Unknown Verified 12/30/18 16:49 Exam Vital signs and Labs for Last 24 Hours: Temp Pulse Resp BP Pulse Ox 97.9 F 80 18 159/85 H 100 12/31/18 08:00 12/31/18 08:00 12/31/18 08:00 12/31/18 08:00 12/31/18 08:00 Laboratory Results - last 24 hr 12/30/18 17:00: WBC 8.5, RBC 5.17, Hgb 13.1, Hct 42.9, MCV 83.0, MCH 25.4 L, MCHC 30.6 L, RDW 15.7, Plt Count 248, MPV 6.8 L, Neut % (Auto) 71.3, Lymph % (Auto) 16.0, [place] % (Auto) 8.0, Eos % (Auto) 4.3, Baso % (Auto) 0.4, Neut # (Auto) 6.0, Lymph # (Auto) 1.4, [place] # (Auto) 0.7, Eos # (Auto) 0.4, Baso # (Auto) 0.0 12/30/18 17:00: ESR 34 H 12/30/18 17:00: Sodium 140, Potassium 3.8, Chloride 102, Carbon Dioxide 31, Anion Gap 10.8, BUN 14, Creatinine 0.78, Estimated Creat Clear 56, Estimated GFR 72, Est GFR ( Amer) 88, Glucose 154 H, Calcium 9.1, Total Bilirubin 0.3, AST 30, ALT 42, Alkaline Phosphatase 195 H, C-Reactive Protein 3.3 H, Total Protein 7.5, Albumin 2.9 L, Globulin 4.6 H, Albumin/Globulin Ratio 0.6 L 12/30/18 17:00: Lactate 1.1 12/30/18 20:25: POC Glucose 137 H 12/31/18 05:52: POC Glucose 174 H 12/31/18 11:14: POC Glucose 140 H I & O for Last 24 hours: Intake & Output 12/29/18 12/30/18 12/31/18 01/01/19 11:59 11:59 11:59 11:59 Intake Total 819 / 819 480 / 480 Output Total 200 / 200 Balance 619 / 619 480 / 480 Weight 150 lb 4 oz 150 lb 3.991 oz Microbiology Reports for the Last 24 Hours: Microbiology 12/30/18 17:29 Leg,Right Gram Stain - Final 12/30/18 17:29 Leg,Right Wound Culture - Preliminary - Constitutional no acute distress, average body habitus, cooperative - *Routine HEENT Exam Head: Present: normocephalic Eye: Present: EOMI ENT: Present: mucous membranes moist - *Routine Respiratory Exam Absent: accessory muscle use, rhonchi, wheezes - *Routine Cardiovascular Exam Present: RRR - *Routine Extremities Exam Comments: BLE dusky from mid-tibia distally RLE ulcerations: dorsal foot, anterior leg (renner), heel --> tibial wound with dry eschar, non-fluctuance w/o erythema, but periwound skin slightly boggy; dorsal foot wound shallow with clean base/margins, no periwound erythema, non- tender; heel is slightly macerated, foul odor, no active drainage or purulence, nothing expressible, boggy to touch LLE ulcerations: anterior renner (dry eschar, tender to touch, soft but without active drainage/expressible purulence) Very weak pedal pulses BLE (+DP/PT but faint); feet cool to touch, skin dry Mild peripheral edema BLE R > L, non-pitting Diminished sensation from proximal tibia distally, present in foot but diminish ed R foot s/p amputation 1st ray + 2d toe No pain proximal to knee, no wounds/fluctuance/tenderness in B/L thighs - *Routine Skin Exam Present: dry, wounds - *Routine Neurological Exam Present: alert, sensory deficit, moving all extremities. Absent: oriented X3, motor deficit - Routine Psychiatric Exam Comments: intermittently confused and disoriented, but very pleasant Results - Labs Result Diagrams: 12/30/18 17:00 12/30/18 17:00 Labs: Abnormal lab results 12/30/18 12/30/18 12/30/18 Range/Units 17:00 17:00 17:00 MCH 25.4 L (27.0-31.2) pg MCHC 30.6 L (31.8-35.4) g/dL MPV 6.8 L (7.4-10.4) fl ESR 34 H (0-30) mm/hr Glucose 154 H (74-106) mg/dL POC Glucose (70-110) Alkaline Phosphatase 195 H (46-116) U/L C-Reactive Protein 3.3 H (0.0-0.9) mg/L Albumin 2.9 L (3.4-5.0) gm/dL Globulin 4.6 H (1.3-3.2) gm/dl Albumin/Globulin Ratio 0.6 L (1.1-1.8) 12/30/18 12/31/18 12/31/18 Range/Units 20:25 05:52 11:14 MCH (27.0-31.2) pg MCHC (31.8-35.4) g/dL MPV (7.4-10.4) fl ESR (0-30) mm/hr Glucose (74-106) mg/dL POC Glucose 137 H 174 H 140 H (70-110) Alkaline Phosphatase (46-116) U/L C-Reactive Protein (0.0-0.9) mg/L Albumin (3.4-5.0) gm/dL Globulin (1.3-3.2) gm/dl Albumin/Globulin Ratio (1.1-1.8) H & H 12/30/18 Range/Units 17:00 Hgb 13.1 (12.2-16.2) g/dL Hct 42.9 (37.0-47.0) % All other labs normal. - Diagnostic results Knee x-ray: report reviewed, image reviewed, other (XR of the TIBIA bilaterally does not reveal areas concerning for osteomyelitis; no acute findings) Assessment and Plan (1) Diabetic foot ulcers Current visit: No Status: Acute Qualifiers: Diabetic foot ulcer location: unspecified part of foot Diabetes mellitus type: other specified (including GAYLE) Laterality: unspecified laterality Non-pressure ulcer stage: unspecified non-pressure ulcer stage Qualified Code(s): E13.621 - Other specified diabetes mellitus with foot ulcer; L97.509 - Non-pressure chronic ulcer of other part of unspecified foot with unspecified severity Category: Medical Code(s): E11.621 - Type 2 diabetes mellitus with foot ulcer; L97.509 - Non-pressure chronic ulcer of other part of unspecified foot with unspecified severity (2) PAD (peripheral artery disease) Current visit: No Status: Chronic Category: Medical Code(s): I73.9 - Peripheral vascular disease, unspecified (3) Bilateral leg pain Current visit: No Status: Acute Category: Medical Code(s): M79.604 - Pain in right leg; M79.605 - Pain in left leg (4) Diabetic neuropathy Current visit: No Status: Acute Category: Medical Code(s): E11.40 - Type 2 diabetes mellitus with diabetic neuropathy, unspecified (5) Edema Current visit: No Status: Acute Qualifiers: Edema type: localized Qualified Code(s): R60.0 - Localized edema Category: Medical Code(s): R60.9 - Edema, unspecified (6) Dementia Current visit: No Status: Chronic Qualifiers: Dementia type: unspecified type Dementia behavioral disturbance: without behavioral disturbance Qualified Code(s): F03.90 - Unspecified dementia without behavioral disturbance Category: Medical Code(s): F03.90 - Unspecified dementia without behavioral disturbance (7) Tobacco dependence syndrome Current visit: No Status: Chronic Category: Medical Code(s): F17.200 - Nicotine dependence, unspecified, uncomplicated - Assessment and plan all Dx Assessment and Plan for all problems:: 73yo F with severe peripheral arterial disease with ulcerations BLE from DM/PVD, non-healing w/potential infection; no evidence of sepsis, patient stable, but in pain, particularly the RLE I had a long discussion with the patient's family today about the state of the patient's lower extremities. She has extremely poor flow distal to the knee and there is likely not a nonsurgical intervention that will improve her wounds. I do not believe that debridement, local wound care, antibiotics, or any nonsurgical options will be successful, as she does not have adequate flow to these areas to heal her wounds. Neither is revascularization option according t o the expert opinion of more than one vascular surgeon the patient has seen. I feel that the patient's only option for potentially improving her quality of life and pain would be amputation, specifically above the knee amputation. However, this is not urgent and I believe elective at this point. She is not septic and this is not a life-threatening condition, but she is likely to have increasing amounts of ischemic pain and progressive infections of her wounds. I do not think her legs will get any better and are likely only to get worse with time. We may reach the point where this becomes life-threatening and she needs to have amputations urgently, but I think for now we have time to be thoughtful about our approach to this. I have advised her family to consider the options and if they believe the patient to be suffering, consider potentially amputating the right leg. I think the left is in better shape at this point and may be delayed. I think bilateral AKAs are very morbid procedures and may ultimately do more harm than good in this patient. Ultimately, this may change if her condition becomes more dire, but for the moment she is stable and fairly comfortable. Her family is going to discuss the options presented to them and talk with the patient and let us know within the next 24 hours with her decision is. Dr. Delgado has stopped her plavix as of today, so if surgery is decided upon, we may proceed within the next week, likely next -Sat. I will check in with the patient and her family tomorrow.
--- NOTE | 2019-01-01 07:14 | Progress Note ---
Internal Medicine - PN: Subj *Date: 01/01/19 *Time: 07:11 Interval history: Patient has no complaints this morning. When asked about decision making for potential amputation patient states "I want to have it done". Dr. Pemberton had a thorough conversation with the family and decision will be made today about how to proceed. Patient does admit that her legs feel better this morning although she continues to have aching pain in the right leg that does not cease consistent with ischemic pain. Exam Vital signs and Labs for Last 24 Hours: Temp Pulse Resp BP Pulse Ox 97.7 F 87 20 133/71 98 01/01/19 04:00 01/01/19 04:00 01/01/19 04:00 01/01/19 04:00 01/01/19 04:00 Laboratory Results - last 24 hr 12/31/18 11:14: POC Glucose 140 H 12/31/18 16:49: POC Glucose 200 H 01/01/19 06:08: POC Glucose 152 H I & O for Last 24 hours: Intake & Output 12/29/18 12/30/18 12/31/18 01/01/19 11:59 11:59 11:59 11:59 Intake Total 819 / 819 980 / 980 Output Total 200 / 200 Balance 619 / 619 980 / 980 Weight 150 lb 4 oz 150 lb 3.991 oz Microbiology Reports for the Last 24 Hours: Microbiology 12/30/18 17:29 Leg,Right Gram Stain - Final 12/30/18 17:29 Leg,Right Wound Culture - Preliminary Narrative: She is awake and alert. She is oriented to person. Lungs are clear to auscultation. Heart has a regular rate and rhythm. Lower extremities are bandaged and I did not examine the wounds Assessment and Plan (1) Diabetic foot ulcers Current visit: No Status: Acute Qualifiers: Diabetic foot ulcer location: unspecified part of foot Diabetes mellitus type: other specified (including GAYLE) Laterality: unspecified laterality Non-pressure ulcer stage: unspecified non-pressure ulcer stage Qualified Code(s): E13.621 - Other specified diabetes mellitus with foot ulcer; L97.509 - Non-pressure chronic ulcer of other part of unspecified foot with unspecified severity Category: Medical Code(s): E11.621 - Type 2 diabetes mellitus with foot ulcer; L97.509 - Non-pressure chronic ulcer of other part of unspecified foot with unspecified severity (2) PAD (peripheral artery disease) Current visit: No Status: Chronic Category: Medical Code(s): I73.9 - Peripheral vascular disease, unspecified (3) Bilateral leg pain Current visit: No Status: Acute Category: Medical Code(s): M79.604 - Pain in right leg; M79.605 - Pain in left leg (4) Diabetic neuropathy Current visit: No Status: Acute Category: Medical Code(s): E11.40 - Type 2 diabetes mellitus with diabetic neuropathy, unspecified (5) Edema Current visit: No Status: Acute Qualifiers: Edema type: localized Qualified Code(s): R60.0 - Localized edema Category: Medical Code(s): R60.9 - Edema, unspecified (6) Dementia Current visit: No Status: Chronic Qualifiers: Dementia type: unspecified type Dementia behavioral disturbance: without behavioral disturbance Qualified Code(s): F03.90 - Unspecified dementia without behavioral disturbance Category: Medical Code(s): F03.90 - Unspecified dementia without behavioral disturbance (7) Tobacco dependence syndrome Current visit: No Status: Chronic Category: Medical Code(s): F17.200 - Nicotine dependence, unspecified, uncomplicated - Assessment and plan all Dx Assessment and Plan for all problems:: Await family and patient's decision and discussion with Dr. Mccullough. Patient ultimately will be discharged today back to [facility]. If she opts for surgery that will be sometime next week and patient's Plavix will be held until after surgery.
--- NOTE | 2019-01-01 11:39 | Discharge Summary ---
General - General Admission date:: 12/30/18 Discharge date: 01/01/19 HPI HPI: 73-year-old female with dementia, diabetes mellitus, peripheral arterial disease was sent to the emergency department yesterday afternoon because of wounds on both lower extremities that were concerning for becoming gangrenous. Patient has known peripheral arterial disease and earlier this month was seen by a vascular surgeon who stated there were no further interventions that could be done to help the patient's lower extremity circulation to aid with wound healing. Should wounds become more severe decision about amputations would have to be made. [facility] has been watching her wounds closely and there had been some new wounds as well as a growth in a wound that has been on the dorsum of her right foot. The wounds were foul-smelling and patient was sent to the emergency department. I had been contacted ahead of time about the patient's transfer to the emergency department. Patient has been seeing Dr. Cardona over her right foot wounds and Dr. Cardona was also aware. Dr. Cardona saw the patient in the ER. Workup in the ER showed a normal white blood cell count, with a sed rate of 34, normal electrolytes. X-rays did not show any signs of osteomyelitis. Hospital Course Hospital Course: Patient was admitted for orthopedic consultation. Dr. Campoverde evaluated the patietn and spoke with family regarding options for treatment. Conservative treatement with wound debridement and antibiotics was felt to have very low chance of success due to severe PAD. Surgical option of AKA to relieve pain on right was presented to family. Family and patient discussed care. Family and patient agree with moving forward with AKA of right leg. Patient will be discharged back to [facility] to allow time for clearance of Plavix. Dr. Campoverde will arrange surgery for next week. Objective Vital signs: Temp Pulse Resp BP Pulse Ox 97.9 F 92 H 16 155/80 H 97 01/01/19 08:00 01/01/19 08:00 01/01/19 08:00 01/01/19 08:00 01/01/19 08:00 Results Labs on day of discharge: Labs from last 24 hours 01/01/19 12/31/18 06:08 16:49 POC Glucose 152 H 200 H DS: Diagnosis - Discharge Diagnosis (1) Diabetic foot ulcers Status: Acute (2) PAD (peripheral artery disease) Status: Chronic (3) Bilateral leg pain Status: Acute (4) Diabetic neuropathy Status: Acute (5) Edema Status: Acute (6) Dementia Status: Chronic (7) Tobacco dependence syndrome Status: Chronic Discharge Plan - Patient Discharge Instructions ACTIVITY: Continue current activity DIET: continue same diet Patient Instructions: Peripheral Artery Disease, DI for Diabetic Foot Ulcer - Follow up Plan Disposition: [facility] Home Medications: Home Medications Medication Instructions Recorded Confirmed Type clopidogrel 75 mg tablet 75 mg PO DAILY tab 02/04/18 12/31/18 History donepezil 10 mg tablet 10 mg PO DAILY 03/03/18 12/31/18 History acetaminophen 500 mg tablet 500 mg PO Q6HP PRN 07/01/18 12/31/18 History Insulin Aspart [Novolog] 0 unit SQ ACHS 09/04/18 12/31/18 History Insulin Glargine,Hum.rec.anlog 20 units SQ HS 09/04/18 12/31/18 History [Insulin Glargine 100 Units/mL 3mL flexpen] Potassium Chloride [Klor-con 20 20 meq PO DAILY 09/04/18 12/31/18 History mEq tablet] hydrocodone 5 mg-acetaminophen 325 1 tab PO BID tab 12/15/18 12/31/18 History mg tablet sertraline 50 mg tablet 50 mg PO HS 15 Days #15 tab 12/15/18 12/31/18 History Amlodipine Besylate [Norvasc 2.5mg 7.5 mg PO DAILY 12/31/18 12/31/18 History tablet] Prescriptions/Medication Reconciliation: Continue acetaminophen 500 mg tablet 500 mg PO Q6HP PRN PRN Reason: Fever > 100.4 sertraline 50 mg tablet 50 mg PO HS 15 Days #15 tab hydrocodone 5 mg-acetaminophen 325 mg tablet 1 tab PO BID tab donepezil 10 mg tablet 10 mg PO DAILY Potassium Chloride [Klor-con 20 mEq tablet] 20 meq PO DAILY Insulin Glargine,Hum.rec.anlog [Insulin Glargine 100 Units/mL 3mL flexpen] 20 units SQ HS Amlodipine Besylate [Norvasc 2.5mg tablet] 7.5 mg PO DAILY Insulin Aspart [Novolog] 0 unit SQ ACHS Discontinued clopidogrel 75 mg tablet 75 mg PO DAILY tab
== END 2019-01-01 16:40 ==
LOC: ER 16:40 → 2ND 16:40
PROVIDERS: ADMIT Family Medicine; ATTEND Family Medicine
CPT/HCPCS: 71010; 71045; 73590; 73630; 80053; 82962; 83605; 85025; 85651; 86140; 87040; 87070; 87077; 87205; 93005; 99284; G0378

== ENCOUNTER 2019-01-08 06:13 | Inpatient (IN) ==
--- NOTE | 2019-01-08 06:47 | Progress Note ---
[facility] Anesthesia Checklist - Patient Identification Patient Identification: Arm Band, Verbal (Name & ) - Structural Data Admitted From: Long-term Nursing Facility Planned Operative Procedure/s: right aka Consent for Planned Operative Procedure(s) Verified: Yes Verified Documents: History and Physical - NPO Status Verified Time NPO: 00:00 - Chart Verification Results Verified: CBC, BMP - Additional verifications Patient : No Anesthesia Reactions: No Hx Blood Transfusions: No Blood Transfusion Reaction: No Cephalosporin Allergy: No Previous Colonoscopy: No - Cardiovascular Assessment Heart Sounds: S1 & S2 Pulse Strength: Baseline Pulse Rhythm: Regular Peripheral Edema: No - Airway Assessment C-Spine Mobility Assessed: Yes TMJ Mobility Assessed: Yes Dentition: Edentulous - Neurological Assessment Level of Consciousness: Awake, Alert, Appropriate Hx Seizures: No Numbness or tingling in extremities: No - Anesthesia Plan Anesthesia Risk discussed: Yes Anesthesia Plan: Verified ASA Class: III Anesthesia Type: Spinal [facility] History I have reviewed the patient's past medical history: Yes Medical History: Reports:: Atherosclerotic Heart Disease, Coronary Artery Disease, Cerebrovascular Accident, Diabetes Mellitus Type 2, Hypertension, Peripheral Artery Disease, Peripheral Vascular Disease, Urinary Tract Infection Denies:: Cancer, Diabetes Mellitus Type 1, Internal Pacemaker, MRSA, Seizures *Have you ever received a pneumonia vaccine?: Yes *Have you received a flu vaccine this season?: Yes Other Medical History: Denies: Blood Transfusion Reaction Laterality Cases: Bilateral: Other Other Surgeries: Yes: Cardiac Catheterization, Other. No: Pacemaker Amputation: Yes (great hallux and second toe of the right foot ) Fractures: No - *Social History Educational Level: Attended High School Smoking Status: Never smoker Tobacco Type: cigarettes # Packs/Day (cigarettes): 1 Alcohol Intake: never Alcohol Intake Frequency:: other Substance Use Type: denies use *Occupational Status:: disabled Housing: house *Travel in the last 8 weeks: None - Psychiatric History Expresses thoughts of harming self/others: None Suicide Plan Description: No Plan Family Hx:: Non-contributory
[2019-01-08 07:20] LABS: INR 1.02 (0.9-1.1); Prothrombin Time 10.5 seconds (9.4-11.8)
--- NOTE | 2019-01-08 11:01 | Progress Note ---
[facility] Anesthesia Record Part I Intake, IV Amount: 1,600 Estimated blood loss (mL): 200 Urine output (mL): 350 Blood Pressure: 157/91 SaO2: 96 Pulse Rate: 79 Respiratory Rate: 20 Temperature: 97.0 F Patient is:: Awake, Stable Stable to PACU at:: 10:57
--- NOTE | 2019-01-08 11:02 | Progress Note ---
[facility] Anesthesia Record Part II Discharge Time: 11:27 Destination: Medical Surgical Department PACU nurse assessment reviewed?: Yes Patient Condition:: Good Anesthesia Complications:: None Swallowing reflex intact?: Yes Cyanosis?: No
--- NOTE | 2019-01-08 11:27 | History & Physical Report ---
*Admission Date: 01/08/19 *Chief complaint: pain, chronic non-healing ulcers RLE; ischemic RLE *History of present illness: 73yo F with multiple medical comorbidities and a history of peripheral vascular disease leading to an ischemic RLE with constant pain and chronic non-healing ulcerations that are becoming infected. She was treated by Dr. Rausch for >1 year as well as vascular surgery and Dr. Delgado, but her pathology continued to progress. No further revascularization procedures were deemed possible by vascular and discussion was had with the patient's family on her quality of life. The decision was made to amputate the R leg for pain control, prevention of overwhelming infection/sepsis in the future, and improvement in her quality of life. I recommended AKA, as she has little to no flow from the knee distally. She has no indwelling hardware in the RLE but has had femoral arterial stenting in the past. She was cleared medically by Dr. Delgado and presents today for surgery. Plavix and aspirin were held starting 1 week ago. Surgery was performed this morning without complication. EBL approximately 100cc. Recovering nicely in PACU at the moment with no pain, vitals stable. [facility] History I have reviewed the patient's past medical history: Yes Medical History: Reports:: Atherosclerotic Heart Disease, Coronary Artery Disease, Cerebrovascular Accident, Diabetes Mellitus Type 2, Hypertension, Peripheral Artery Disease, Peripheral Vascular Disease, Urinary Tract Infection Denies:: Cancer, Diabetes Mellitus Type 1, Internal Pacemaker, MRSA, Seizures *Have you ever received a pneumonia vaccine?: Yes *Have you received a flu vaccine this season?: Yes Other Medical History: Denies: Blood Transfusion Reaction Laterality Cases: Bilateral: Other Other Surgeries: Yes: Cardiac Catheterization, Other. No: Pacemaker Amputation: Yes (great hallux and second toe of the right foot ) Fractures: No - *Social History Educational Level: Attended High School Smoking Status: Never smoker Tobacco Type: cigarettes # Packs/Day (cigarettes): 1 Alcohol Intake: never Alcohol Intake Frequency:: other Substance Use Type: denies use *Occupational Status:: disabled Housing: house *Travel in the last 8 weeks: None - Psychiatric History Expresses thoughts of harming self/others: None Suicide Plan Description: No Plan Family Hx:: Non-contributory Review of Systems - Review of Systems Review of systems:: pertinent systems reviewed and negative unless documented below Meds Home Medications Medication Instructions Recorded Confirmed Type donepezil 10 mg tablet 10 mg PO DAILY 03/03/18 01/07/19 History acetaminophen 500 mg tablet 500 mg PO Q6HP PRN 07/01/18 01/07/19 History Insulin Aspart [Novolog] 0 unit SQ ACHS 09/04/18 01/07/19 History Insulin Glargine,Hum.rec.anlog 20 units SQ HS 09/04/18 01/07/19 History [Insulin Glargine 100 Units/mL 3mL flexpen] Potassium Chloride [Klor-con 20 20 meq PO DAILY 09/04/18 01/07/19 History mEq tablet] hydrocodone 5 mg-acetaminophen 325 1 tab PO BID tab 12/15/18 01/07/19 History mg tablet sertraline 50 mg tablet 50 mg PO HS 15 Days #15 tab 12/15/18 01/07/19 History Amlodipine Besylate [Norvasc 2.5mg 7.5 mg PO DAILY 12/31/18 01/07/19 History tablet] Clopidogrel Bisulfate [Plavix 75mg 75 mg PO DAILY 01/08/19 01/08/19 History Tab] Allergies Allergy/AdvReac Type Severity Reaction Status Date / Time codeine Allergy Unknown Verified 01/07/19 09:09 Exam Vital signs and Labs for Last 24 Hours: Temp Pulse Resp BP Pulse Ox 97.0 F L 79 20 157/91 H 100 01/08/19 11:01 01/08/19 11:01 01/08/19 11:01 01/08/19 11:01 01/08/19 06:32 Laboratory Results - last 24 hr 01/08/19 06:56: POC Glucose 105 01/08/19 07:06: PT 10.5, INR 1.02 01/08/19 07:06: Blood Type O Positive, Antibody Screen Negative 01/08/19 07:50: Urine Color Yellow, Urine Appearance Cloudy, Urine pH 8.0, Ur Specific [place] 1.010, Urine Protein Negative, Urine Glucose (UA) Negative, Urine Ketones Negative, Urine Blood 2+, Urine Nitrate Negative, Urine Bilirubin Negative, Urine Urobilinogen 0.2, Ur Leukocyte Esterase Negative, Urine RBC 3-5, Urine WBC None, Ur Squamous Epith Cells Occasional, Urine Bacteria Trace I & O for Last 24 hours: Intake & Output 01/05/19 01/06/19 01/07/19 01/08/19 11:59 11:59 11:59 11:59 Intake Total 1600 / 1600 Balance 1600 / 1600 Weight 150 lb 6 oz - *Routine Extremities Exam Comments: patient is in PACU, vitals stable RLE s/p AKA, wrapped/splinted with hemovac drain LLE with ulceration below the knee, no erythema or active drainage, no fluctuance LLE pedal pulses difficult to palpate, very weak but foot warm boucher cath to gravity, urine cloudy Results - Labs Labs: Coagulation 01/08/19 Range/Units 07:06 INR 1.02 (0.9-1.1) All other labs normal. Assessment and Plan (1) Abnormal ankle brachial index (KAVITA) Current visit: No Status: Acute Category: Medical Code(s): R68.89 - Other general symptoms and signs (2) Bilateral leg pain Current visit: No Status: Acute Category: Medical Code(s): M79.604 - Pain in right leg; M79.605 - Pain in left leg (3) Bilateral leg ulcer Current visit: No Status: Acute Qualifiers: Non-pressure ulcer stage: unspecified non-pressure ulcer stage Qualified Code(s): L97.919 - Non-pressure chronic ulcer of unspecified part of right lower leg with unspecified severity; L97.929 - Non-pressure chronic ulcer of unspecified part of left lower leg with unspecified severity Category: Medical Code(s): L97.919 - Non-pressure chronic ulcer of unspecified part of right lower leg with unspecified severity; L97.929 - Non-pressure chronic ulcer of unspecified part of left lower leg with unspecified severity (4) Diabetic neuropathy Current visit: No Status: Acute Category: Medical Code(s): E11.40 - Type 2 diabetes mellitus with diabetic neuropathy, unspecified (5) PAD (peripheral artery disease) Current visit: No Status: Chronic Category: Medical Code(s): I73.9 - Peripheral vascular disease, unspecified - Assessment and plan all Dx Assessment and Plan for all problems:: 73yo F s/p R AKA -- elevate R AKA stump on pillow, ice pack PRN -- do not remove splint/dresings -- empty hemovac and record output each shift -- offload LLE on pillows -- SCDs, encourage IS -- DVT prophy: lovenox starting tomorrow -- restart baseline aspirin and plavix tomorrow -- d/c boucher cath tomorrow -- may be out of bed as tolerated to a chair, with assist -- PT/OT eval for transfers -- clear liquid diet, advance as tolerated -- continue prophy antbx x24 hr -- pain control w/Tylenol, norco/dilaudid ordered PRN -- restart home meds -- Dr. Delgado consulted for medical management
[2019-01-08 11:49] LABS: Basophils % 0.3 % (0.1-2.0); Eosinophils # 0.2 K/mm3 (0.0-0.4); Eosinophils % 1.3 % (0.1-12.0); Hematocrit 43.6 % (37.0-47.0); Hemoglobin 13.5 g/dL (12.2-16.2); Lymphocytes # 1.4 K/mm3 (0.7-4.5); Mean Corpuscular HGB Conc 30.9 g/dL (31.8-35.4); Mean Corpuscular Hemoglobin 25.8 pg (27.0-31.2); Mean Corpuscular Volume 83.6 fl (81-99); Mean Platelet Volume 7.2 fl (7.4-10.4); Monocytes # 0.8 K/mm3 (0.1-1.0); Neutrophils # 10.1 K/mm3 (1.8-7.8); Neutrophils % 81.4 % (37.0-80.0); Platelet Count 311 K/mm3 (142-424); Red Blood Count 5.22 M/mm3 (4.20-5.40); Red Cell Distribution Width 15.6 % (11.5-17.5); White Blood Count 12.4 K/mm3 (4.8-10.8)
--- NOTE | 2019-01-08 12:25 | Pharmacy Consult Notes ---
[facility] Pharmacy VTE Monitoring - Patient Demographics Admission date: 01/08/19 Report Date: 01/08/19 Time: 12:25 Allergies/Adverse Reactions: Patient Allergies codeine Allergy (Unknown, Verified 01/07/19 09:09) Height: 1.57 m Weight: 67.585 kg - VTE Risk Labs: VTE Related Lab Results Hgb 13.5 g/dL (12.2-16.2) 01/08/19 11:40 Hct 43.6 % (37.0-47.0) 01/08/19 11:40 Plt Count 311 K/mm3 (142-424) 01/08/19 11:40 PT 10.5 seconds (9.4-11.8) 01/08/19 07:06 INR 1.02 (0.9-1.1) 01/08/19 07:06 - Prophylaxis VTE Prophylaxis Ordered?: Yes Types of VTE Prophylaxis: IPCS Thigh High, Pharmacological Location of Applied Device: Left Leg Pharmacologic Type: Enoxaparin
[2019-01-08 14:26] LABS: Albumin Level 3.1 gm/dL (3.4-5.0); Albumin/Globulin Ratio 0.7 (1.1-1.8); Bilirubin,Total 0.3 mg/dL (0.2-1.0); Calcium 8.6 mg/dL (8.5-10.1); Globulin 4.4 gm/dl (1.3-3.2); Total Protein,Serum 7.5 gm/dL (6.4-8.2)
--- NOTE | 2019-01-08 16:17 | Progress Note ---
Internal Medicine - PN: Subj *Date: 01/08/19 *Time: 16:05 Interval history: 73 year old female post-op right above the knee amputation today. Patient has had significant issues of chronic non-healing ulcers and pain due to ischemia from peripheral vascular disease. This decision was made based on quality of life with family. She is currently resting comfortably, reports minimal pain at this time. Initially woke up after surgery complaining of LEFT leg pain, this was relieved with oral hydrocodone. She is currently confused thinking place is [place], year is in the and actually pulled IV access out. Exam Vital signs and Labs for Last 24 Hours: Temp Pulse Resp BP Pulse Ox 98.1 F 68 20 137/58 L 99 01/08/19 13:35 01/08/19 13:35 01/08/19 15:03 01/08/19 13:35 01/08/19 13:35 Laboratory Results - last 24 hr 01/08/19 06:56: POC Glucose 105 01/08/19 07:06: PT 10.5, INR 1.02 01/08/19 07:06: Blood Type O Positive, Antibody Screen Negative 01/08/19 07:50: Urine Color Yellow, Urine Appearance Cloudy, Urine pH 8.0, Ur Specific [place] 1.010, Urine Protein Negative, Urine Glucose (UA) Negative, Urine Ketones Negative, Urine Blood 2+, Urine Nitrate Negative, Urine Bilirubin Negative, Urine Urobilinogen 0.2, Ur Leukocyte Esterase Negative, Urine RBC 3-5, Urine WBC None, Ur Squamous Epith Cells Occasional, Urine Bacteria Trace 01/08/19 11:10: POC Glucose 159 H 01/08/19 11:40: WBC 12.4 H, RBC 5.22, Hgb 13.5, Hct 43.6, MCV 83.6, MCH 25.8 L, MCHC 30.9 L, RDW 15.6, Plt Count 311, MPV 7.2 L, Neut % (Auto) 81.4 H, Lymph % (Auto) 11.0, [place] % (Auto) 6.0, Eos % (Auto) 1.3, Baso % (Auto) 0.3, Neut # (Auto) 10.1 H, Lymph # (Auto) 1.4, [place] # (Auto) 0.8, Eos # (Auto) 0.2, Baso # (Auto) 0.0 01/08/19 11:40: Sodium 142, Potassium 4.0, Chloride 104, Carbon Dioxide 25, Anion Gap 17.0 H, BUN 14, Creatinine 0.71, Estimated Creat Clear 53, Estimated GFR 81, Est GFR ( Amer) 98, Glucose 158 H, Calcium 8.6, Total Bilirubin 0.3, AST 26, ALT 32, Alkaline Phosphatase 174 H, Total Protein 7.5, Albumin 3.1 L, Globulin 4.4 H, Albumin/Globulin Ratio 0.7 L I & O for Last 24 hours: Intake & Output 01/05/19 01/06/19 01/07/19 01/08/19 23:59 23:59 23:59 23:59 Intake Total 1625 / 1625 Output Total Balance 1600 / 1600 Weight 150 lb 6 oz 149 lb - Constitutional no acute distress - *Routine HEENT Exam Head: Present: normocephalic, atraumatic - *Routine Respiratory Exam Present: CTA bilaterally. Absent: accessory muscle use - *Routine Cardiovascular Exam Present: RRR, Normal S1, Normal S2. Absent: tachycardia, irregularly irregular - *Routine Abdominal Exam Present: soft, normoactive bowel sounds. Absent: tenderness - *Routine Exam Comments: F/C in place - *Routine Extremities Exam Comments: AKA right leg with christopher bandage in place, no drainage noted - *Routine Skin Exam Present: dry. Absent: pallor - *Routine Neurological Exam Absent: alert, oriented X3 confused to time and place - Routine Psychiatric Exam Present: normal affect Assessment and Plan (1) Abnormal ankle brachial index (KAVITA) Current visit: No Status: Acute Category: Medical Code(s): R68.89 - Other general symptoms and signs (2) Bilateral leg pain Current visit: No Status: Acute Category: Medical Code(s): M79.604 - Pain in right leg; M79.605 - Pain in left leg (3) Bilateral leg ulcer Current visit: No Status: Acute Qualifiers: Non-pressure ulcer stage: unspecified non-pressure ulcer stage Qualified Code(s): L97.919 - Non-pressure chronic ulcer of unspecified part of right lower leg with unspecified severity; L97.929 - Non-pressure chronic ulcer of unspecified part of left lower leg with unspecified severity Category: Medical Code(s): L97.919 - Non-pressure chronic ulcer of unspecified part of right lower leg with unspecified severity; L97.929 - Non-pressure chroni c ulcer of unspecified part of left lower leg with unspecified severity (4) Diabetic neuropathy Current visit: No Status: Acute Category: Medical Code(s): E11.40 - Type 2 diabetes mellitus with diabetic neuropathy, unspecified (5) PAD (peripheral artery disease) Current visit: No Status: Chronic Category: Medical Code(s): I73.9 - Peripheral vascular disease, unspecified - Assessment and plan all Dx Assessment and Plan for all problems:: Will follow patient while in the hospital.
--- NOTE | 2019-01-08 21:54 | Operative Note ---
Date of procedure: 01/08/19 Pre-op Diagnosis:: 1) RLE chronic non-healing ulcers 2) peripheral vascular disease with RLE ischemia 3) diabetes mellitus Post-op Diagnosis:: 1) RLE chronic non-healing ulcers 2) peripheral vascular disease with RLE ischemia 3) diabetes mellitus Procedure performed:: R above-knee amputation Surgeon:: Kay Campoverde MD Law Instructor(s):: Akanksha Daly CST COMIC ILLUSTRATOR:: Other (Morales Walker ) Anesthesia: GETA, regional Estimated blood loss (mL): 100 Clinical Note:: 73-year-old female with a long-standing history of peripheral vascular disease and diabetes mellitus, with chronic nonhealing ulcerations of bilateral lower extremities, right greater than left. Despite both surgical and medical emile tment and specialized wound care, her disease has progressed to the point where she is in near constant pain in the right leg. She has been evaluated by more than one vascular surgeon, who do not believe any further vascular procedures are possible. Her ulcers are becoming infected and though she is not septic she is in nearly constant pain and there is little hope that she will clear this infection. Long discussion was had with her family regarding goals of care and 2 options were presented to them: Continuation of medical care with wound care/comfort care, versus amputation. The goal of amputation would be to decrease her pain and improve her quality of life. The left lower extremity seems to be in better shape and she is having quite a bit more pain on the right side, so the family has elected to proceed with a right leg amputation. I recommend [id number] amputation because it has been determined that she has little to no flow in the right lower extremity below the knee. On 12/10/2018 ABIs were performed that showed an ankle-brachial index from the thigh of 0.49, the calf of 0.46, the ankle of 0.37 and no pressure could be recorded in her toes. She has already undergone amputation of the first and second rays in the past. X-rays revealed no indwelling hardware in the right lower extremity she does have a large segment of vascular implants, either a bypass graft or stent that extends from around the level of the lesser trochanter distally to the metadiaphyseal region of the femur. Her pedal pulses are very faint and suddenly palpable, Dopplers needed to definitively establish then. The foot is cool and mottled in appearance. The procedure was discussed with the patient's family and specifically consent was obtained from her nephew Kenny, who is her power of commercial real estate attorney. The patient is an established DNR with her long term and this was continued during her admission. The risks, benefits and alternatives to surgery were discussed with her family, who vocalized understanding, and her POA provided informed consent. Operative findings:: femoral artery stent partially occluded, some flow present when transected, but no powerful pulsatile flow; remainder of tissues appear healthy, no evidence of infection, good capillary bleeding w/warm skin Operative note:: The patient was identified in preoperative holding and the right leg signed by myself. The patient is pleasantly demented but seemed to understand the planned procedure. Procedure was reviewed once more with the patient's family and all questions answered. The patient was then evaluated by anesthesia who performed regional nerve block on her, see their note for full detail. The patient was transported to the OR and placed supine onto the operative table. 1 gram Ancef was infused intravenously and general anesthesia induced. Once the patient was asleep, a Cosby catheter was placed into the patient's bladder, the left lower extremity placed on a gel cushion/offloaded, SCD placed on the left leg, and bear hugger warmer placed over the patient. The right lower extremity was then prepped and draped in the usual sterile fashion for an above-knee amputation. No tourniquet was placed. Timeout was performed, identifying the correct patient, the correct procedure, and correct site. The procedure was begun by first using a marking pen to draw out my desired incisions on the right thigh. A fishmouth flap was planned with equal anterior and posterior flaps, the apex drawn at the level of the desired bone cut. The expected bone cut was measured around 12 cm proximal to the knee joint. Equal anterior-posterior fishmouth flaps were then drawn. Incision was made with a #10 blade through the skin along these flap lines. Soft tissue was then dissected perpendicular to the skin incision deeper, using electrocautery. Cautery was used on the muscles and subcutaneous tissue to decrease bleeding. All tissue appeared to be healthy and viable with no evidence of infection and good capillary bleeding. As dissection was carried deeper, care was taken to identify and isolate all neurovascular structures, including the deep artery and vein of the thigh, the femoral artery and vein, the saphenous nerve, and the sciatic nerve. Quadriceps muscles, the abductor muscles and the hamstrings were all separately incised. The femur was then transected using an oscillating saw around 12 cm proximal to the knee joint. After the femur was transected, the leg was removed in its entirety and disposed of in a biohazard bag. It should be noted that when all neurovascular structures were isolated, they were tied with 0 silk ties and sharply transected with a clean knife. Specifically, the nerves were sharply transected after applying longitudinal traction on the nerve and they were seen to retract proximally. Femoral artery in the proximal thigh was stented for a large portion of its course and as this stent was transected, several metal fibers composing the internal structure of the stent were seen and removed from the leg. The femoral artery did have blood flow present, though the stent was partially occluded and there was not high volume, pulsatile flow as would be expected in a healthy artery, rather the blood flow was much slower. The femoral artery was also doubly ligated. The stump was then copiously irrigated with sterile saline infused with bacitracin and hemostasis obtained with electrocautery taking care to dry any bleeders. The edges of the femur were then beveled using a large rasp. A 2.5 mm drill bit was then used to make a unicortical hole in the medial aspect of the femoral shaft and through this mild the cyst was performed of the abductor musculature. This was done using 0 Ethibond through the abductor muscles, which were then tied down in my obese through the femoral canal. After the myodesis, the end of the femoral canal was plugged with a large piece of Gelfoam to help prevent continuous oozing from the medullary canal and hematoma formation in the stump. The stump was then closed in a layered fashion, first using 0 Ethibond to perform myodesis of the quadriceps and hamstrings muscles to one another. This was used to balance anterior and posterior muscular vectors and also to cover the bone stump. After this was performed the subcu tissues were then closed with 0 Vicryl followed by 2-0 Vicryl and finally 2-0 nylon on the skin. Prior to closure of the skin, a Hemovac drain was placed subfascially and hooked to a compression canister. The drain was exited through the skin laterally. The wound was then dressed with Xeroform, 4 x 4's, ABDs and wrapped with both Kerlix and web roll. A rigid splint was then placed using 4 inch Ortho-Glass and a anterior to posterior stirrup. This was overwrapped with Dru wrap and the drain secured to the dressings with tape. The patient was then extubated and transferred to PACU in good condition, where she awoke and no pain with stable vital signs. She will then be transferred to the floor for full admission and medical evaluation/stabilization and physical rehabilitation prior to discharge back to the long term. The patient tolerated this procedure very well with no immediate complications. Tourniquet time (min): 0 Condition: stable Disposition: floor Specimens:: right leg (from just above the knee, distally) Complications:: none
[2019-01-09 06:43] LABS: Basophils % 0.2 % (0.1-2.0); Eosinophils # 0.1 K/mm3 (0.0-0.4); Eosinophils % 0.6 % (0.1-12.0); Hematocrit 35.4 % (37.0-47.0); Lymphocytes # 1.1 K/mm3 (0.7-4.5); Lymphocytes % 8.5 % (10-50); Mean Corpuscular HGB Conc 30.5 g/dL (31.8-35.4); Mean Corpuscular Hemoglobin 25.1 pg (27.0-31.2); Mean Corpuscular Volume 82.1 fl (81-99); Mean Platelet Volume 6.8 fl (7.4-10.4); Monocytes # 1.1 K/mm3 (0.1-1.0); Monocytes % 7.9 % (1.7-9.3); Neutrophils % 82.8 % (37.0-80.0); Platelet Count 248 K/mm3 (142-424); Red Blood Count 4.31 M/mm3 (4.20-5.40); Red Cell Distribution Width 15.5 % (11.5-17.5); White Blood Count 13.2 K/mm3 (4.8-10.8)
[2019-01-09 06:52] LABS: Anion Gap 11.1 mEq/L (5-15); Calcium 8.4 mg/dL (8.5-10.1); Potassium 4.1 mmoL/L (3.5-5.1)
--- NOTE | 2019-01-09 08:06 | Progress Note ---
Internal Medicine - PN: Subj *Date: 01/09/19 *Time: 08:02 Interval history: Patient has no complaints this morning other than her right leg hurts. When reminded that she is in the hospital after having a right above-knee amputation patient does remember this is the reason for her hospitalization. She has no other complaints this morning. She denies shortness of breath or chest pain. She is oriented to person only and can be reoriented to place Exam Vital signs and Labs for Last 24 Hours: Temp Pulse Resp BP Pulse Ox 98.9 F 72 18 140/59 L 97 01/09/19 04:00 01/09/19 04:00 01/09/19 04:00 01/09/19 04:00 01/09/19 04:00 Laboratory Results - last 24 hr 01/08/19 07:50: Urine Color Yellow, Urine Appearance Cloudy, Urine pH 8.0, Ur Specific [place] 1.010, Urine Protein Negative, Urine Glucose (UA) Negative, Urine Ketones Negative, Urine Blood 2+, Urine Nitrate Negative, Urine Bilirubin Negative, Urine Urobilinogen 0.2, Ur Leukocyte Esterase Negative, Urine RBC 3-5, Urine WBC None, Ur Squamous Epith Cells Occasional, Urine Bacteria Trace 01/08/19 11:10: POC Glucose 159 H 01/08/19 11:40: WBC 12.4 H, RBC 5.22, Hgb 13.5, Hct 43.6, MCV 83.6, MCH 25.8 L, MCHC 30.9 L, RDW 15.6, Plt Count 311, MPV 7.2 L, Neut % (Auto) 81.4 H, Lymph % (Auto) 11.0, Sutter % (Auto) 6.0, Eos % (Auto) 1.3, Baso % (Auto) 0.3, Neut # (Auto) 10.1 H, Lymph # (Auto) 1.4, Sutter # (Auto) 0.8, Eos # (Auto) 0.2, Baso # (Auto) 0.0 01/08/19 11:40: Sodium 142, Potassium 4.0, Chloride 104, Carbon Dioxide 25, Anion Gap 17.0 H, BUN 14, Creatinine 0.71, Estimated Creat Clear 53, Estimated GFR 81, Est GFR ( Amer) 98, Glucose 158 H, Calcium 8.6, Total Bilirubin 0.3, AST 26, ALT 32, Alkaline Phosphatase 174 H, Total Protein 7.5, Albumin 3.1 L, Globulin 4.4 H, Albumin/Globulin Ratio 0.7 L 01/08/19 16:49: POC Glucose 115 H 01/08/19 21:02: POC Glucose 197 H 01/09/19 05:55: WBC 13.2 H, RBC 4.31, Hgb 11.0 L D, Hct 35.4 L, MCV 82.1, MCH 25.1 L, MCHC 30.5 L, RDW 15.5, Plt Count 248, MPV 6.8 L, Neut % (Auto) 82.8 H, Lymph % (Auto) 8.5 L, Sutter % (Auto) 7.9, Eos % (Auto) 0.6, Baso % (Auto) 0.2, Neut # (Auto) 11.0 H, Lymph # (Auto) 1.1, Sutter # (Auto) 1.1 H, Eos # (Auto) 0.1, Baso # (Auto) 0.0 01/09/19 05:55: Sodium 141, Potassium 4.1, Chloride 105, Carbon Dioxide 29, Anion Gap 11.1, BUN 10 D, Creatinine 0.70, Estimated Creat Clear 53, Estimated GFR 82, Est GFR ( Amer) 99, Glucose 149 H, Calcium 8.4 L 01/09/19 05:57: POC Glucose 132 H I & O for Last 24 hours: Intake & Output 01/06/19 01/07/19 01/08/19 01/09/19 11:59 11:59 11:59 11:59 Intake Total 1625 / 1625 1745 / 1745 Output Total 565 / 565 Balance 1600 / 1600 1180 / 1180 Weight 150 lb 6 oz 149 lb 149 lb Narrative: In no distress. Patient is pleasantly confused this morning. Lungs are clear. Heart has a regular rate and rhythm. Right leg has dressing in place and I did not remove this this morning Assessment and Plan (1) Abnormal ankle brachial index (KAVITA) Current visit: No Status: Acute Category: Medical Code(s): R68.89 - Other general symptoms and signs (2) Bilateral leg pain Current visit: No Status: Acute Category: Medical Code(s): M79.604 - Pain in right leg; M79.605 - Pain in left leg (3) Bilateral leg ulcer Current visit: No Status: Acute Qualifiers: Non-pressure ulcer stage: unspecified non-pressure ulcer stage Qualified Code(s): L97.919 - Non-pressure chronic ulcer of unspecified part of right lower leg with unspecified severity; L97.929 - Non-pressure chronic ulcer of unspecified part of left lower leg with unspecified severity Category: Medical Code(s): L97.919 - Non-pressure chronic ulcer of unspecified part of right lower leg with unspecified severity; L97.929 - Non-pressure chronic ulcer of unspecified part of left lower leg with unspecified severity (4) Diabetic neuropathy Current visit: No Status: Acute Category: Medical Code(s): E11.40 - Type 2 diabetes mellitus with diabetic neuropathy, unspecified (5) PAD (peripheral artery disease) Current visit: No Status: Chronic Category: Medical Code(s): I73.9 - Peripheral vascular disease, unspecified - Assessment and plan all Dx Assessment and Plan for all problems:: Patient is stable. I am going to start duloxetine in the evening to see if this may help with perceived pain coming from the right extremity. She will restart Plavix today. Home medicines have been reordered
--- NOTE | 2019-01-09 09:53 | Progress Note ---
Subjective Date: 01/09/19 Time: 09:00 Principal diagnosis: s/p R AKA Interval history: The patient is stable this morning but complaining of 9 out 10 pain in the R leg. Pain medication last given around 6am. Hemovac drain reportedly had <40- 45cc out since surgery, 20cc overnight. PN: Obj Ex Vital signs: Temp Pulse Resp BP Pulse Ox 98.5 F 73 18 144/76 H 98 01/09/19 08:00 01/09/19 08:00 01/09/19 08:00 01/09/19 08:00 01/09/19 08:00 - Routine Extremities Exam Comments: awake, alert, intermittently confused but knows who I am RLE AKA stump dressings intact, no striketrhough scant output in hemovac drain outer dressings/splint removed, hemovac drain removed but webril/surgical dressings left in place; no strikethrough stump rewrapped with SAMIR only, splint left off -- trying to improve patient's comfort - Urinary Catheter Management Cosby Cath placed during this visit: yes Urethral indwelling: Yes Reason for continuing: Measure accurate output Insertion date: 01/08/19 Insertion time: 07:50 Progress Note: A&P (1) Abnormal ankle brachial index (KAVITA) Status: Acute Current Visit: No (2) Bilateral leg pain Status: Acute Current Visit: No (3) Bilateral leg ulcer Status: Acute Current Visit: No (4) Diabetic neuropathy Status: Acute Current Visit: No (5) PAD (peripheral artery disease) Status: Chronic Current Visit: No Assessment and Plan for All Diagnoses:: 73yo F POD 1 s/p R AKA -- splint removed, drain removed, stump rewrapped slightly looser for comfort -- ice RLE PRN for pain/swelling -- continue home meds -- restart asa/plavix today -- lovenox for DVT prophy; may stop per Dr. Delgado -- PT eval for transfers -- dispo planning: anticipate d/c back to [place] Saturday
--- NOTE | 2019-01-10 16:27 | Progress Note ---
Subjective Date: 01/10/19 Time: 16:00 Principal diagnosis: s/p R AKA Interval history: Patient is status post right AKA post op day #2. Patient is sitting out in the chair. She says she is doing well and reports no problems. She reports only minimal pain and says it's well-controlled with medication. No history of any fevers, chills or rigors. No history of any cough, chest pain, shortness of breath or palpitations. Patient says she is eating and drinking well. Nursing staff reports that patient has not open bowels since admission. PN: Obj Ex Vital signs: Temp Pulse Resp BP Pulse Ox 98.2 F 80 18 156/57 H 100 01/10/19 16:00 01/10/19 16:00 01/10/19 16:00 01/10/19 16:00 01/10/19 16:00 Narrative: Laboratory Results - last 24 hr 01/09/19 16:20: POC Glucose 177 H 01/09/19 20:48: POC Glucose 162 H 01/10/19 06:38: POC Glucose 145 H 01/10/19 11:39: POC Glucose 252 H Exam General appearance: alert, active, awake, no acute distress Cardiovascular: regular rate & rhythm Respiratory: No respiratory distress noted, speaks in full sentences Neuro: alert and awake On examination of the right AKA stump, there are no dressings. The suture line looks clean, dry and healthy; no erythema, discharge or swelling noted. The suture line is well vascularized/viable and appears healthy. I have cleaned the suture line and applied a sterile bordered gauze dressing and applied an Dru wrap over the stump. - Urinary Catheter Management Cosby Cath placed during this visit: yes Urethral indwelling: Yes Reason for continuing: Surgical procedure Insertion date: 01/08/19 Insertion time: 07:50 Progress Note: A&P (1) Abnormal ankle brachial index (KAVITA) Status: Acute Current Visit: No (2) Bilateral leg pain Status: Acute Current Visit: No (3) Bilateral leg ulcer Status: Acute Current Visit: No (4) Diabetic neuropathy Status: Acute Current Visit: No (5) PAD (peripheral artery disease) Status: Chronic Current Visit: No Assessment and Plan for All Diagnoses:: I have reviewed the clinical findings and progress with the patient and family. Patient is doing very well and reports no problems. Her pain is well controlled with as needed pain medication. Recommend elevation, regular icing, as needed pain medication. Nursing staff reports that she is constipated-ordered stat Fleet enema and regular senna; continue DVT prophylaxis. Continue medical management as per Dr. Delgado.
--- NOTE | 2019-01-11 16:00 | Progress Note ---
Subjective Date: 01/11/19 Time: 15:45 Principal diagnosis: s/p R AKA Interval history: Patient is status post right AKA post op day # 3. Patient is lying down on the bed. She says she is doing well and reports no problems. She reports only minimal pain and says it's well-controlled with medication. No history of any fevers, chills or rigors. No history of any cough, chest pain, shortness of breath or palpitations. Nursing staff reports that patient had phantom type of pain this morning but is well controlled with medication. PN: Obj Ex Vital signs: Temp Pulse Resp BP Pulse Ox 98.0 F 84 18 169/81 H 100 01/11/19 07:59 01/11/19 07:59 01/11/19 07:59 01/11/19 07:59 01/11/19 07:59 Narrative: Laboratory Results - last 24 hr 01/10/19 16:24: POC Glucose 191 H 01/10/19 19:56: POC Glucose 199 H 01/11/19 05:57: POC Glucose 164 H 01/11/19 11:43: POC Glucose 196 H Exam General appearance: alert, active, awake, no acute distress Cardiovascular: regular rate & rhythm Respiratory: No respiratory distress noted, speaks in full sentences Neuro: alert and awake On examination of the right AKA stump, the dressings are clean, dry and healthy. No strikethrough discharge noted. The Dru wrap is in place. - Urinary Catheter Management Cosby Cath placed during this visit: yes Urethral indwelling: Yes Reason for continuing: Surgical procedure Insertion date: 01/08/19 Insertion time: 07:50 Progress Note: A&P (1) Abnormal ankle brachial index (KAVITA) Status: Acute Current Visit: No (2) Bilateral leg pain Status: Acute Current Visit: No (3) Bilateral leg ulcer Status: Acute Current Visit: No (4) Diabetic neuropathy Status: Acute Current Visit: No (5) PAD (peripheral artery disease) Status: Chronic Current Visit: No Assessment and Plan for All Diagnoses:: I have reviewed the clinical findings and progress with the patient/family. Patient is doing well and reports no problems. She apparently had phantom type of pain this morning but is comfortable now. She says her pain is well controlled with as needed pain medication. Continue elevation, regular icing, as needed pain medication. Continue medical management as per Dr. Delgado.
[2019-01-12 07:40] VITALS: BP 177/67
--- NOTE | 2019-01-12 09:02 | Discharge Summary ---
General - General Admission date:: 01/08/19 Discharge date: 01/12/19 HPI HPI: 73yo F with multiple medical comorbidities and a history of peripheral vascular disease leading to an ischemic RLE with constant pain and chronic non-healing ulcerations that are becoming infected. She was treated by Dr. Rausch for >1 year as well as vascular surgery and Dr. Delgado, but her pathology continued to progress. No further revascularization procedures were deemed possible by vascular and discussion was had with the patient's family on her quality of life. The decision was made to amputate the R leg for pain control, prevention of overwhelming infection/sepsis in the future, and improvement in her quality of life. I recommended AKA, as she has little to no flow from the knee distally. She has no indwelling hardware in the RLE but has had femoral arterial stenting in the past. She was cleared medically by Dr. Delgado and presents today for surgery. Plavix and aspirin were held starting 1 week ago. Surgery was performed 01/08/19 without complication. EBL approximately 100cc. Recovering nicely in PACU at the moment with no pain, vitals stable. Hospital Course Hospital Course: After surgery the patient was admitted for post-operative care. Wound drain was removed on POD 1 and local wound care performed. Cosby cath was removed on POD 1 as well. Medical management provided by Dr. Delgado. DVT prophy with lovenox while baseline ASA/plavix restarted. She completed 24 hours of prophylactic antibiotics. On 01/12/2019 she was medically appropriate for [facility]. Objective Vital signs: Temp Pulse Resp BP Pulse Ox 98.3 F 77 18 177/67 H 100 01/12/19 07:40 01/12/19 07:40 01/12/19 07:40 01/12/19 07:40 01/12/19 07:40 - *Routine Extremities Exam Comments: awake, alert, NAD R AKA stump wrapped with SAMIR, incision c/d/i w/o erythema or drainage stump non-tender LLE stable, no new lesions; leg offloaded on pillows Results Completed studies during hospitalization [Text1]: routine lab monitoring with CBC, BMP Labs on day of discharge: Labs from last 24 hours 01/12/19 01/11/19 01/11/19 06:02 20:29 17:08 POC Glucose 118 H 233 H 148 H 03/31/19 11:43 POC Glucose 196 H DS: Diagnosis - Discharge Diagnosis (1) Abnormal ankle brachial index (KAVITA) Status: Acute (2) Bilateral leg pain Status: Acute (3) Bilateral leg ulcer Status: Acute (4) Diabetic neuropathy Status: Acute (5) PAD (peripheral artery disease) Status: Chronic Discharge Plan - Patient Discharge Instructions ACTIVITY: Continue current activity, Up in chair, Up with assistance DIET: continue same diet Additional Instructions: wound care: change dressing daily, keep stump wrapped with 2 SAMIR wraps for support/compression ok to bathe stump but no submerging in tub continue home medications Patient Instructions: DI for [id number]-aml-Csms Amputation, Peripheral Artery Disease, DI for Surgical Site Infection - Follow up Plan Follow up with: Kay Campoverde MD [Staff Physician] - 01/16/19 10:00 am Bay Delgado MD [Staff Physician] - 2 weeks Disposition: Xfer [facility] Home Medications: Home Medications Medication Instructions Recorded Confirmed Type donepezil 10 mg tablet 10 mg PO DAILY 03/03/18 01/07/19 History acetaminophen 500 mg tablet 1,000 mg PO Q6HP PRN 07/01/18 01/08/19 History Insulin Aspart [Novolog] 0 unit SQ ACHS 09/04/18 01/07/19 History Insulin Glargine,Hum.rec.anlog 20 units SQ HS 09/04/18 01/07/19 History [Insulin Glargine 100 Units/mL 3mL flexpen] Potassium Chloride [Klor-con 20 20 meq PO DAILY 09/04/18 01/07/19 History mEq tablet] hydrocodone 5 mg-acetaminophen 325 1 tab PO BID tab 12/15/18 01/07/19 History mg tablet sertraline 50 mg tablet 50 mg PO HS 15 Days #15 tab 12/15/18 01/07/19 History Amlodipine Besylate [Norvasc 2.5mg 7.5 mg PO DAILY 12/31/18 01/07/19 History tablet] Acetaminophen [Acetaminophen Extra 1,000 mg PO Q6HP PRN 01/08/19 01/08/19 History Strength] Clopidogrel Bisulfate [Plavix 75mg 75 mg PO DAILY 01/08/19 01/08/19 History Tab] Hydrocod/Acet 5/325 mg [[place] 1 - 2 tab PO Q4HP PRN #30 tablet 01/12/19 Rx 5/325mg tablet] Prescriptions/Medication Reconciliation: New Insulin Lispro [HumaLOG 100 units/mL 3mL vial (SSI)] 0 unit SQ ACHS ml Hydrocod/Acet 5/325 mg [[place] 5/325mg tablet] 1 - 2 tab PO Q4HP PRN #30 tablet PRN Reason: Mild To Moderate Pain Continue sertraline 50 mg tablet 50 mg PO HS 15 Days #15 tab hydrocodone 5 mg-acetaminophen 325 mg tablet 1 tab PO BID tab donepezil 10 mg tablet 10 mg PO DAILY Potassium Chloride [Klor-con 20 mEq tablet] 20 meq PO DAILY Insulin Glargine,Hum.rec.anlog [Insulin Glargine 100 Units/mL 3mL flexpen] 20 units SQ HS Amlodipine Besylate [Norvasc 2.5mg tablet] 7.5 mg PO DAILY Clopidogrel Bisulfate [Plavix 75mg Tab] 75 mg PO DAILY Insulin Aspart [Novolog] 0 unit SQ ACHS Acetaminophen [Acetaminophen Extra Strength] 1,000 mg PO Q6HP PRN PRN Reason: PAIN Discontinued acetaminophen 500 mg tablet 1,000 mg PO Q6HP PRN PRN Reason: Fever > 100.4
--- NOTE | 2019-01-12 09:02 | Progress Note ---
Subjective Date: 01/12/19 Time: 08:45 Principal diagnosis: s/p R AKA Interval history: The patient is doing well this morning. She had some phantom pain over the weekend but feels she is improving and is comfortable this morning. PN: Obj Ex Vital signs: Temp Pulse Resp BP Pulse Ox 98.3 F 77 18 177/67 H 100 01/12/19 07:40 01/12/19 07:40 01/12/19 07:40 01/12/19 07:40 01/12/19 07:40 - Routine Extremities Exam Comments: awake, alert, NAD R AKA stump wrapped with SAMIR, incision c/d/i w/o erythema or drainage stump non-tender LLE stable, no new lesions; leg offloaded on pillows - Urinary Catheter Management Cosby Cath placed during this visit: yes Urethral indwelling: Yes Reason for continuing: Not indwelling catheter Insertion date: 01/08/19 Insertion time: 07:50 Progress Note: A&P (1) Abnormal ankle brachial index (KAVITA) Status: Acute Current Visit: No (2) Bilateral leg pain Status: Acute Current Visit: No (3) Bilateral leg ulcer Status: Acute Current Visit: No (4) Diabetic neuropathy Status: Acute Current Visit: No (5) PAD (peripheral artery disease) Status: Chronic Current Visit: No Assessment and Plan for All Diagnoses:: 73yo F POD #4 s/p R AKA -- medically stable, appropriate for d/c back to [facility] today -- specific d/c instructions, including wound care to be done with discharge orders -- will stop lovenox at d/c -- pain Rx given -- f/u with me this 01/16/19 at 10am
== END 2019-01-12 11:25 | DRG 617 ==
LOC: OR 06:13 → 2ND 06:13
PROVIDERS: ADMIT Orthopaedic Surgery; ATTEND Orthopaedic Surgery

== ENCOUNTER → 2019-09-14 16:58 | Outpatient (CLI) | payer MEDICARE, MEDICAID, SELFPAY | PROVIDERS: Visit Provider Family Medicine | DX: E11.621 Type 2 diabetes mellitus with foot ulcer (principal); L97.919 Non-pressure chronic ulcer of unspecified part of right lower leg with unspecified severity; Z79.4 Long term (current) use of insulin | CPT/HCPCS: 87070; 87077; 87186; 87205 ==

== ENCOUNTER → 2020-01-04 14:46 | Outpatient (CLI) | payer MEDICARE, MEDICAID, SELFPAY ==
--- NOTE | 2020-01-04 14:51 | XR_ITS ---
PROCEDURE: XR FOOT WT BEARING LT 3V CLINICAL INDICATION: wound, infection Wound infection, pain COMPARISON: [id number] XR foot wt bearing RT 3V from 01/28/2018 [id number] XR foot RT min 3V from 03/07/2018 [id number] XR foot wt bearing RT 3V from 03/27/2018 [id number] XR foot RT min 3V from 12/30/2018 FINDINGS: There is diffuse osteopenia No obvious fracture or dislocation. There is flexion of the 2nd through 5th toes. Vascular calcification is noted Other findings:None. IMPRESSION: No acute findings. Dictated by: Mykel Wilhelm MD 01/04/2020 15:41 Electronically signed by Mykel Wilhelm MD in [place] 01/04/2020 15:41
== END ==
PROVIDERS: PCP Family Medicine; Visit Provider Podiatrist
DX: Z51.89 Encounter for other specified aftercare (principal)
CPT/HCPCS: 73630; 87070; 87077; 87186; 87205

== ENCOUNTER → 2020-01-04 18:15 | Outpatient (CLI) | payer MEDICARE, MEDICAID, SELFPAY | PROVIDERS: Visit Provider Podiatrist | DX: E11.40 Type 2 diabetes mellitus with diabetic neuropathy, unspecified (principal); E11.621 Type 2 diabetes mellitus with foot ulcer; L97.509 Non-pressure chronic ulcer of other part of unspecified foot with unspecified severity; Z79.4 Long term (current) use of insulin; Z51.89 Encounter for other specified aftercare | CPT/HCPCS: 73630; 87070; 87077; 87186; 87205 ==

== ENCOUNTER → 2020-01-12 08:36 | Outpatient (CLI) | payer MEDICARE, MEDICAID, SELFPAY ==
--- NOTE | 2020-01-12 08:39 | MR_ITS ---
PROCEDURE: MR FOOT LT WO/W CON CLINICAL INDICATION: Pain, OM, foot ulcer greatest around the heel ulcer COMPARISON: No exams were available for comparison TECHNIQUE: Routine multiplanar multisequence exam with and without contrast was performed. 14 cc of ProHance was given for postcontrast imaging. FINDINGS: The exam is limited due to patient motion artifact. According to the report the patient has dementia and it was difficult for her to remain still for imaging. According to the technologist's report, the best images possible for acquired There is a soft tissue defect likely correlating with the clinically known ulcer along the posterior lateral aspect of the calcaneus and there is a large amount of signal abnormality throughout the adjacent subcutaneous soft tissues. This demonstrates diffuse intense contrast enhancement. Cellulitis is suspected. No discrete circumscribed fluid collection suspicious for abscess is apparent. This appears greatest at the site of the soft tissue ulcer and over the posterior and lateral aspect of the calcaneus. As best depicted on the coronal T1 weighted images there is a segment of discontinuity of the posterior lateral inferior cortex of the calcaneus measuring up to 13.6 millimeters. Cortical destruction is favored and there is a moderate to large amount of bone marrow edema in the adjacent calcaneus extending from the posterior to mid aspect of the calcaneus. Osteomyelitis should be considered 1st. There is abnormal signal intensity within the cuboid. There are several 3-4 millimeter cystic foci within the cuboid and there is also some bone marrow edema. This is nonspecific and could be secondary to osteomyelitis or the bone marrow may be reactive associated with osteoarthritis. There is no cortical destruction. There is otherwise normal bone marrow signal. The Achilles tendon and plantar fascia have a normal appearance. Remaining tendinous structures appear grossly intact. Deltoid ligament appears intact. There is no significant joint effusion. 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 Exam limited as described. Dictated by: Lior Correia 01/12/2020 11:45 Electronically signed by Lior Correia in [place] 01/12/2020 11:45
--- NOTE | 2020-01-12 11:33 | US_ITS ---
APPROVED REPORT Exam Type: Ankle to Brachial Index Dress Marker: RT Loar(R) Indications Non-healing Ulcer: History of Smoking Risk Factors History of PAD: Bilaterally Hypertension Hyperlipidemia Obesity TIA/CVA History Diabetes History of Smoking Patient had an above the knee amputation on RLE 12/2018. Non healing ulcers present on left heel. Pressures/Indices Right Indices Left Indices Brachial 149.00 mmHg Brachial 154.00 mmHg Low Thigh Low Thigh 54.00 mmHg 0.35 Calf Calf 51.00 mmHg 0.33 Ankle(PT) Ankle(PT) 68.00 mmHg 0.44 Ankle(DP) Ankle(DP) 91.00 mmHg 0.59 Digit Digit 40.00 mmHg 0.26 Findings No right KAVITA's obtained due to amputation LT KAVITA=0.4 LT TBI=0.3 Abnormal waveforms Diminished pulses Conclusion No right KAVITA's obtained due to amputation LT KAVITA=0.4 LT TBI=0.3 Abnormal waveforms Diminished pulses Electronically signed by : Lior Correia, 01/12/2020 14:06:06
== END ==
PROVIDERS: PCP Family Medicine; Visit Provider Podiatrist
DX: L89.624 Pressure ulcer of left heel, stage 4 (principal); I73.9 Peripheral vascular disease, unspecified
CPT/HCPCS: 73720; 93923; A9576

== ENCOUNTER 2020-01-15 08:45 | Day surgery (SDC) | payer MEDICARE, MEDICAID, SELFPAY ==
[2020-01-15] VITALS (44 sets, daily range): BP systolic 71–181; BP diastolic 36–93; PULSE 68–100; RESP 14–20; TEMP 36.2–36.9; O2SAT 91–100; BMI 28.2
--- NOTE | 2020-01-15 | IR_ITS ---
APPROVED REPORT Patient Location: [facility]: CAMILLA Galindo RT (R) PROCEDURES Right femoral arterial access Catheter placement of the left common iliac artery Left common iliac artery unilateral angiography with runoff to the distal left popliteal artery Drug-coated balloon angioplasty of the left superficial femoral artery and left popliteal artery Bare-metal stent deployment to the left superficial femoral artery Informed consent was obtained prior to the procedure. COMPLICATIONS NONE Estimated Blood Loss: LESS THAN 10 ML TECHNIQUE 1% lidocaine used to anesthetize the right groin the right femoral artery was accessed via the Salinger technique and a 5 Yemeni sheath was placed in the right femoral artery. A Sos Omni catheter was placed in the distal abdominal aorta and used to cannulate the left common iliac artery. Angiography was performed. Following this therapeutic heparin was administered giving a therapeutic ACT. An advantage wire was then used to push through the occlusion in the left superficial femoral artery. The 5 Yemeni sheath was exchanged for a 6 Yemeni destination sheath. A 5 mm x 150 mm and a 5 mm x 125 mm drug-coated balloon were deployed for 3-minute intervals in the left superficial femoral artery extending to the left popliteal artery reducing the 100% occlusion to less than 10%. There was one focal dissected area therefore a 7 mm x 60 mm self-expanding SMART stent was deployed. Excellent angiographic results were obtained. At the end of the procedure the apparatus was removed patient was transferred to the postop holding her stable condition for sheath removal ANGIOGRAPHIC RESULTS Left common iliac artery has a stent in the proximal segment widely patent free of in-stent restenosis. The left external and internal iliac arteries are patent. The left common femoral artery is patent the left profunda femoris artery is patent. The left superficial femoral artery is proximally occluded and reconstitutes at the popliteal level. The popliteal artery is widely patent and gives rise to an anterior tibialis artery. No further lower extremity angiography was performed IMPRESSION Occlusion of the left superficial femoral artery extending into the left popliteal artery Successful reconstruction of the left superficial femoral artery and popliteal artery 100% occlusion reduced to less than 10% with 2 drug-coated balloons as described above followed by short self-expanding bare-metal stent PLAN 1. Aspirin Plavix for 1 month then switch to Xarelto 2.5 twice daily plus aspirin 81 mg daily 2. LDL less than 55 3. Risk factor modification Electronically signed by : Ole Vazquez, 01/15/2020 13:59:36
[2020-01-15 10:10] LABS: Basophils # 0.1 K/mm3 (0-0.2); Basophils % 0.7 % (0.1-2.0); Eosinophils # 0.6 K/mm3 (0.0-0.4); Eosinophils % 6.8 % (0.1-12.0); Hematocrit 52.2 % (37.0-47.0); Lymphocytes # 2.1 K/mm3 (0.7-4.5); Lymphocytes % 25.4 % (10-50); Mean Corpuscular HGB Conc 30.6 g/dL (31.8-35.4); Mean Corpuscular Hemoglobin 25.5 pg (27.0-31.2); Mean Corpuscular Volume 83.5 fl (81-99); Monocytes # 0.3 K/mm3 (0.1-1.0); Monocytes % 3.5 % (1.7-9.3); Neutrophils # 5.2 K/mm3 (1.8-7.8); Neutrophils % 63.5 % (37.0-80.0); Platelet Count 280 K/mm3 (142-424); Red Blood Count 6.25 M/mm3 (4.20-5.40); Red Cell Distribution Width 16.6 % (11.5-17.5); White Blood Count 8.1 K/mm3 (4.8-10.8)
[2020-01-15 10:40] LABS: Anion Gap 10.7 mEq/L (5-15); Blood Urea Nitrogen 20 mg/dl (7-17); Calcium 9.8 mg/dl (8.4-10.2); Carbon Dioxide 30 mmol/L (22.0-30.0); Chloride 104 mmol/L (98-107); Creatinine Clearance Estimated 62 mL/min (50-200); Estimated Glomerular Filt Rate 70 ml/min (>60); GFR (African American) 85 ML/MIN (>60); Glucose 162 mg/dl (74-100); Potassium 3.7 mmoL/L (3.5-5.1); Sodium 141 mmol/L (136-145)
[2020-01-15 13:59] LABS: CATHL Activated Clotting Time > 400 SEC (74-125)
--- NOTE | 2020-01-15 15:14 | HMH.PHAINT ---
PATIENT TOO CONFUSED TO BE COUNSELED ON STENT. PATIENT IS ALSO FROM ALF. -OMAIRA MCCOY, DEVIKAD
--- NOTE | 2020-01-15 18:28 | PC.NURSE ---
PT IS RESTING IN BED. NO COMPLAINTS OF DISCOMFORT. RESPONDS TO HER NAME ONLY. NOTIFIED [facility] AND THEY STATED PT IS ALWAYS CONFUSED. PT NEEDS TO REMAIN FLAT UNTIL 1949. VSS. DRESSING TO THE RT GROIN C/D/I. NO HEMATOMA NOTED. WILL CONTINUE TO MONITOR.
--- NOTE | 2020-01-15 19:04 | PC.NURSE ---
report given to geni
--- NOTE | 2020-01-15 23:11 | PC.NURSE ---
Pt pleasantly confused and resting in bed. Has slept at intervals tonight. Pt sat up at 2100 and ate 4 bites of mashed potatoes and drank 480 cc of water and tea. (R) femoral cath site. DSG C/D/I. VSS. Pt on RA. Lungs diminished t/o. Pt has RBKA. DSG to (L) foot in place. She remains on telemetry with 1st degree AV block with frequent PAC's and occasional PJC. No complaints of discomfort. Safety measures in place. Report given to Willa tMz RN.
[2020-01-16] VITALS: PULSE 80
[2020-01-16 03:40] VITALS: BP 150/78; PULSE 80; RESP 16; TEMP 36.4; O2SAT 97
[2020-01-16 04:00] VITALS: PULSE 70
[2020-01-16 07:17] LABS: Chloride 107 mmol/L (98-107); Potassium 3.6 mmoL/L (3.5-5.1); Sodium 142 mmol/L (136-145)
[2020-01-16 07:20] LABS: Anion Gap 11.6 mEq/L (5-15); Blood Urea Nitrogen 14 mg/dl (7-17); Calcium 9.7 mg/dl (8.4-10.2); Carbon Dioxide 27 mmol/L (22.0-30.0); Creatinine Clearance Estimated 62 mL/min (50-200); Estimated Glomerular Filt Rate 82 ml/min (>60); GFR (African American) 99 ML/MIN (>60); Glucose 105 mg/dl (74-100)
[2020-01-16 07:22] LABS: Basophils % 0.6 % (0.1-2.0); Eosinophils # 0.4 K/mm3 (0.0-0.4); Eosinophils % 5.8 % (0.1-12.0); Hematocrit 45.2 % (37.0-47.0); Lymphocytes # 1.5 K/mm3 (0.7-4.5); Mean Corpuscular HGB Conc 30.7 g/dL (31.8-35.4); Mean Corpuscular Hemoglobin 25.5 pg (27.0-31.2); Mean Corpuscular Volume 83.2 fl (81-99); Mean Platelet Volume 7.5 fl (7.4-10.4); Monocytes # 0.4 K/mm3 (0.1-1.0); Monocytes % 4.9 % (1.7-9.3); Neutrophils # 5.2 K/mm3 (1.8-7.8); Neutrophils % 68.7 % (37.0-80.0); Platelet Count 245 K/mm3 (142-424); Red Blood Count 5.43 M/mm3 (4.20-5.40); Red Cell Distribution Width 16.8 % (11.5-17.5); White Blood Count 7.5 K/mm3 (4.8-10.8)
[2020-01-16 07:27] LABS: Hemoglobin 13.9 g/dL (12.2-16.2)
--- NOTE | 2020-01-16 07:59 | P.CONPHA_ITS ---
[facility] Pharmacy VTE Monitoring - Patient Demographics Admission date: 01/16/20 Report Date: 01/16/20 Time: 07:59 Allergies/Adverse Reactions: Patient Allergies codeine Allergy (Mild, Verified 01/12/20 13:59) Gastrointestinal Upset Height: 1.68 m Weight: 79.379 kg - VTE Risk Labs: VTE Related Lab Results Hgb 13.9 g/dL (12.2-16.2) D 01/16/20 07:00 Hct 45.2 % (37.0-47.0) 01/16/20 07:00 Plt Count 245 K/mm3 (142-424) 01/16/20 07:00 BUN 14 mg/dl (7-17) D 01/16/20 07:00 Creatinine 0.70 mg/dl (0.52-1.04) 01/16/20 07:00 Estimated Creat Clear 62 mL/min (50-200) 01/16/20 07:00 - Prophylaxis Types of VTE Prophylaxis: TEDS Knee High (KOURTNEY HOSE ORDER PLACED)
[2020-01-18 13:41] LABS: CATHL Activated Clotting Time 193 SEC (74-125)
== END 2020-01-16 08:45 ==
LOC: CATHLAB 08:53 → 2ND 14:50
PROVIDERS: PCP Family Medicine; Visit Provider Internal Medicine
DX: E11.42 Type 2 diabetes mellitus with diabetic polyneuropathy (principal); L89.624 Pressure ulcer of left heel, stage 4; E11.621 Type 2 diabetes mellitus with foot ulcer; Z79.4 Long term (current) use of insulin; Z95.820 Peripheral vascular angioplasty status with implants and grafts; Z88.5 Allergy status to narcotic agent; Z79.899 Other long term (current) drug therapy; I11.9 Hypertensive heart disease without heart failure; I25.10 Atherosclerotic heart disease of native coronary artery without angina pectoris; I77.1 Stricture of artery; E11.51 Type 2 diabetes mellitus with diabetic peripheral angiopathy without gangrene; I70.292 Other atherosclerosis of native arteries of extremities, left leg; L97.423 Non-pressure chronic ulcer of left heel and midfoot with necrosis of muscle
CPT/HCPCS: 37226; 80048; 85025; 85347; 99152; 99153; C1725; C1766; C1769; C1876; C1894; J1644; J2720; Q9966

== ENCOUNTER 2020-02-05 16:26 | Inpatient (IN) | payer MEDICARE, MEDICAID, SELFPAY ==
[2020-02-04 08:50] VITALS: BMI 23.0
[2020-02-05] VITALS (20 sets, daily range): BP systolic 109–158; BP diastolic 48–97; PULSE 79–96; RESP 14–20; TEMP 36.4–37.1; O2SAT 94–100
--- NOTE | 2020-02-05 13:01 | P.PN_ITS ---
[facility] Anesthesia Checklist - Patient Identification Patient Identification: Arm Band, Verbal (Name & ) - Structural Data Admitted From: Long-term Nursing Facility Planned Operative Procedure/s: l bka Consent for Planned Operative Procedure(s) Verified: Yes Verified Documents: History and Physical - NPO Status Verified Time NPO: 00:00 - Additional verifications Patient : No Anesthesia Reactions: No Hx Blood Transfusions: No Blood Transfusion Reaction: No Cephalosporin Allergy: No Previous Colonoscopy: Yes - Cardiovascular Assessment Heart Sounds: S1 & S2 Pulse Strength: Baseline Pulse Rhythm: Regular Peripheral Edema: No - Airway Assessment C-Spine Mobility Assessed: Yes TMJ Mobility Assessed: Yes Dentition: Edentulous - Neurological Assessment Level of Consciousness: Awake, Alert, Appropriate Hx Seizures: No Numbness or tingling in extremities: No - Anesthesia Plan Anesthesia Risk discussed: Yes Anesthesia Plan: Verified ASA Class: III Anesthesia Type: Spinal [facility] History I have reviewed the patient's past medical history: Yes Medical History: Reports:: Atherosclerotic Heart Disease, Coronary Artery Disease, Cerebrovascular Accident, Diabetes Mellitus Type 2, Hypertension, Peripheral Artery Disease, Peripheral Vascular Disease, Urinary Tract Infection Denies:: Cancer, Diabetes Mellitus Type 1, Internal Pacemaker, MRSA, Seizures *Have you ever received a pneumonia vaccine?: Yes *Have you received a flu vaccine this season?: Yes Other Medical History: Denies: Blood Transfusion Reaction Anesthesia experience/problems:: none Laterality Cases: Right: Lumpectomy, Bilateral: Other Other Surgeries: Yes: Cardiac Catheterization, Other. No: Pacemaker Amputation: Yes (Right AKA) Fractures: No - *Social History Smoking Status: Former smoker Tobacco Type: cigarettes # Packs/Day (cigarettes): 0 Alcohol Intake: never Alcohol Intake Frequency:: other Substance Use Type: denies use *Occupational Status:: disabled Housing: assisted living facility Household Members: caregiver, other *Travel in the last 8 weeks: None Family Hx:: Unable to obtain
[2020-02-05 15:43] LABS: Microscopic,Cath URINE MICROSCOPIC (MICROSCOPIC)
[2020-02-05 15:44] LABS: Appearance,Urine/Cath CLOUDY (Clear); Blood, Urine/Cath 3+ (Negative); Color,Urine/Cath DK YELLOW (Yellow); Glucose,Urine/Cath (UA) Negative (Negative); Ketones,Urine/Cath 1+ (Negative); Leukocyte Esterase,Cath 2+ (Negative); Nitrate,Cath Negative (Negative); PH,Urine/Cath 6.5 (5.0-8.5); Protein,Urine/Cath 1+ (Negative); Urobilinogen,Cath 0.2 EU/dl (0.2)
[2020-02-05 15:46] LABS: Bilirubin,Cath Negative (Negative)
[2020-02-05 15:55] LABS: CA Oxalate Crystals,Ur/Cath Trace /lpf; Mucus,Urine/Cath Trace /lpf; RBC,Urine/Cath 20-50 # /hpf (0-3); Squamous Epithelial Ur./Cath Occasional #/hpf (0-5); WBC,Urine/Cath TNTC #/hpf (0-3)
--- NOTE | 2020-02-05 16:10 | P.PN_ITS ---
[facility] Anesthesia Record Part I Intake, IV Amount: 1,300 Estimated blood loss (mL): 100 Urine output (mL): 25 Blood Products used (#): none Blood Pressure: 131/70 SaO2: 99 Pulse Rate: 86 Respiratory Rate: 16 Temperature: 97.9 F Patient is:: Awake, Drowsy, Stable Stable to PACU at:: 16:05
--- NOTE | 2020-02-05 16:52 | HMH.HP ---
*Admission Date: 02/05/20 *Chief complaint: s/p L BKA *History of present illness: 74yo F admitted after undergoing L BKA earlier today. She has a chronic, non-healing ulcer of the L heel, with underlying osteomyelitis and wound drainage culture positive for MRSA. She underwent stenting of a 100% occluded L SFA by Dr. Vazquez in 01/15/2020. Post-procedure she has been on aspirin and plavix, with a plan to continue these x 1 month and transition to Xarelto after that. See clinic notes for full detail regarding pre-operative work-up and operative discussion. Her POA is her nephew for financial matters, but her sister Eliud Irizarry makes her medical decisions as the patient suffers from significant dementia. There were no complications during surgery today. Tourniquet was place as a precaution but not inflated during the procedure. I spoke with Dr. Vazquez pre-operatively, who reviewed her angiogram with me to demonstrate the level of her stent. His recommendation was to wait 3 weeks post-stenting to proceed with BKA, as the stent will typically take that long to endothelialize. I did not stop her aspirin/plavix before the procedure today. She was on oral doxycycline prior to surgery, and IV ancef/vancomycin were added at the time of surgery. EBL was approximately 100cc. [facility] History I have reviewed the patient's past medical history: Yes Medical History: Reports:: Atherosclerotic Heart Disease, Coronary Artery Disease, Cerebrovascular Accident, Diabetes Mellitus Type 2, Hypertension, Peripheral Artery Disease, Peripheral Vascular Disease, Urinary Tract Infection Denies:: Cancer, Diabetes Mellitus Type 1, Internal Pacemaker, MRSA, Seizures *Have you ever received a pneumonia vaccine?: Yes *Have you received a flu vaccine this season?: Yes Other Medical History: Denies: Blood Transfusion Reaction Anesthesia experience/problems:: none Laterality Cases: Right: Lumpectomy, Bilateral: Other Other Surgeries: Yes: Cardiac Catheterization, Other. No: Pacemaker Amputation: Yes (Right AKA) Fractures: No - *Social History Smoking Status: Former smoker Tobacco Type: cigarettes # Packs/Day (cigarettes): 0 Alcohol Intake: never Alcohol Intake Frequency:: other Substance Use Type: denies use *Occupational Status:: disabled Housing: assisted living facility Household Members: caregiver, other *Travel in the last 8 weeks: None Family Hx:: Unable to obtain Review of Systems - Review of Systems Review of systems:: pertinent systems reviewed and negative unless documented below Meds Home Medications Medication Instructions Recorded Confirmed Type donepezil 10 mg tablet 10 mg PO DAILY 03/03/18 02/05/20 History sertraline 50 mg tablet 50 mg PO HS 15 Days #15 tab 12/15/18 02/05/20 History Amlodipine Besylate [Norvasc 2.5mg 7.5 mg PO DAILY 12/31/18 02/05/20 History tablet] Acetaminophen [Acetaminophen Extra 1,000 mg PO Q6HP PRN 01/08/19 02/05/20 History Strength] Clopidogrel Bisulfate [Plavix 75mg 75 mg PO DAILY 01/08/19 02/05/20 History Tab] amino acids-protein hydrolys 15 2 each PO BID ml 01/04/20 02/05/20 History gram-100 kcal/30 mL oral liquid docusate sodium 100 mg tablet 100 mg PO DAILY 01/04/20 02/05/20 History insulin glargine 100 unit/mL (3 20 unit SQ QHS ml 01/04/20 02/05/20 History mL) subcutaneous pen insulin lispro 100 unit/mL 1 sliding scale dose SQ ACHS ml 01/04/20 02/05/20 History subcutaneous solution mirtazapine 7.5 mg tablet 7.5 mg PO QHS tab 01/04/20 02/05/20 History polyethylene glycol 3350 17 17 g PO DAILY 01/04/20 02/05/20 History gram/dose oral powder Saccharomyces boulardii 250 mg 250 mg PO DAILY cap 01/12/20 02/05/20 History capsule memantine 5 mg tablet 5 mg PO BID tab 01/12/20 02/05/20 History potassium chloride 10 mEq 20 meq PO DAILY cap 01/12/20 02/05/20 History capsule,extended release Doxycycline Hyclate [Doxycycline 100 mg PO BID 01/15/20 02/05/20 History 100mg Capsule] Hydr
--- NOTE | 2020-02-05 16:55 | HMH.CONS ---
*Admission Date: 02/05/20 *Reason for consult:: Medical management *History of present illness: 74-year-old female with peripheral arterial disease and diabetes with neuropathy that has now led to postop admission after left BKA due to nonhealing, infected leg wound. I have been consulted for medical management while patient is hospitalized. She is a resident of a local halfway. Most recent A1c revealed diabetes was better controlled compared to past assessments. Patient herself at present has just come up to the floor. She is pleasantly confused and states she is feeling well despite having pain everywhere . [facility] History I have reviewed the patient's past medical history: Yes Medical History: Reports:: Atherosclerotic Heart Disease, Coronary Artery Disease, Cerebrovascular Accident, Diabetes Mellitus Type 2, Hypertension, Peripheral Artery Disease, Peripheral Vascular Disease, Urinary Tract Infection Denies:: Cancer, Diabetes Mellitus Type 1, Internal Pacemaker, MRSA, Seizures *Have you ever received a pneumonia vaccine?: Yes *Have you received a flu vaccine this season?: Yes Other Medical History: Denies: Blood Transfusion Reaction Anesthesia experience/problems:: none Laterality Cases: Right: Lumpectomy, Bilateral: Other Other Surgeries: Yes: Cardiac Catheterization, Other. No: Pacemaker Amputation: Yes (Right AKA) Fractures: No - *Social History Smoking Status: Former smoker Tobacco Type: cigarettes # Packs/Day (cigarettes): 0 Alcohol Intake: never Alcohol Intake Frequency:: other Substance Use Type: denies use *Occupational Status:: disabled Housing: assisted living facility Household Members: caregiver, other *Travel in the last 8 weeks: None Family Hx:: Unable to obtain Review of Systems - Review of Systems Review of systems:: unable to obtain Meds Home Medications Medication Instructions Recorded Confirmed Type donepezil 10 mg tablet 10 mg PO DAILY 03/03/18 02/05/20 History sertraline 50 mg tablet 50 mg PO HS 15 Days #15 tab 12/15/18 02/05/20 History Amlodipine Besylate [Norvasc 2.5mg 7.5 mg PO DAILY 12/31/18 02/05/20 History tablet] Acetaminophen [Acetaminophen Extra 1,000 mg PO Q6HP PRN 01/08/19 02/05/20 History Strength] Clopidogrel Bisulfate [Plavix 75mg 75 mg PO DAILY 01/08/19 02/05/20 History Tab] amino acids-protein hydrolys 15 2 each PO BID ml 01/04/20 02/05/20 History gram-100 kcal/30 mL oral liquid docusate sodium 100 mg tablet 100 mg PO DAILY 01/04/20 02/05/20 History insulin glargine 100 unit/mL (3 20 unit SQ QHS ml 01/04/20 02/05/20 History mL) subcutaneous pen insulin lispro 100 unit/mL 1 sliding scale dose SQ ACHS ml 01/04/20 02/05/20 History subcutaneous solution mirtazapine 7.5 mg tablet 7.5 mg PO QHS tab 01/04/20 02/05/20 History polyethylene glycol 3350 17 17 g PO DAILY 01/04/20 02/05/20 History gram/dose oral powder Saccharomyces boulardii 250 mg 250 mg PO DAILY cap 01/12/20 02/05/20 History capsule memantine 5 mg tablet 5 mg PO BID tab 01/12/20 02/05/20 History potassium chloride 10 mEq 20 meq PO DAILY cap 01/12/20 02/05/20 History capsule,extended release Doxycycline Hyclate [Doxycycline 100 mg PO BID 01/15/20 02/05/20 History 100mg Capsule] Hydrocod/Acet 5/325 mg [[place] 1 tab PO TID PRN 01/15/20 02/05/20 History 5/325mg tablet] Insulin Aspart [Novolog] 100 unit SQ ACHS 01/15/20 02/05/20 History Saccharomyces Boulardii [Florastor] 250 mg PO DAILY 01/15/20 02/05/20 History Aspirin [Aspirin 81mg chewable 81 mg PO DAILY 01/19/20 02/05/20 History tab] Allergies Allergy/AdvReac Type Severity Reaction Status Date / Time codeine Allergy Mild Gastrointestinal Verified 01/25/20 09:21 Upset Exam Vital signs and Labs for Last 24 Hours: Temp Pulse Resp BP Pulse Ox 97.9 F 88 20 125/72 100 02/05/20 16:25 02/05/20 16:25 02/05/20 16:25 02/05/20 16:25 02/05/20 16:25 Laboratory Results - last 2
--- NOTE | 2020-02-05 16:58 | HMH.OPNOTE ---
Date of procedure: 02/05/20 Pre-op Diagnosis:: 1) chronic non-healing diabetic ulcer L heel 2) MRSA osteomyelitis L calcaneus 3) peripheral arterial disease; s/p stenting L SFA 3 weeks ago Post-op Diagnosis:: 1) chronic non-healing diabetic ulcer L heel 2) MRSA osteomyelitis L calcaneus 3) peripheral arterial disease; s/p stenting L SFA 3 weeks ago Procedure performed:: L below knee amputation (BKA) Surgeon:: Kay Campoverde MD Manager Of Warehouse(s):: Marissa Salcedo CST PIT BOSS:: Morales Sewell Anesthesia: MAC, spinal Estimated blood loss (mL): 100 Clinical Note:: 74-year-old female with a chronic non-healing ulcer of the left heel and underlying osteomyelitis diagnosed and initially treated by Dr. Rausch, our manager floor. Over 1 month of local wound care, oral antibiotics and in-office debridement did nothing to heal her wound, which only worsened with time. ABIs were concerning for significant limb ischemia so she was evaluated by Dr. Vazquez, who performed a LLE angiogram on 01/15/20 with stenting of a 100% occluded SFA. Since then she has been on aspirin and plavix; George recommended waiting around 3 weeks for amputation to give the stent time to endothelialize and lower the risk of applying a tourniquet to the left thigh. The patient underwent a R AKA on 01/08/19 and has a prosthesis but does not use it. [facility] and is essentially non-ambulatory. She suffers from significant dementia so her medical decisions are made by her sister Eliud Irizarry. The patient has not shown signs of sepsis thus far, but reports pain in the left foot, exacerbated by daily dressing changes and repeated debridements. Given the prognosis of osteomyelitis with an overlying stage IV diabetic heel ulcer, below knee amputation was proposed as a means to improve her quality of life. I had a long discussion in person with the patient and jail caregiver, and with the patient's sister/POA via telephone. 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 I discussed the risks of surgery with the patient's sister, who in turn discussed all options with the patient's extended family. It is their with to decrease the patient's pain and improve her quality of life by amputation the left leg below the knee. I discussed with the risk of: bleeding, infection, failure of wound healing, wound dehiscence, phantom limb pain, need for revision amputation, need for blood transfusion, and the risk of heart attack, stroke or even . The patient was not oriented and was difficult to focus; she did not understand where she was or why, though she appeared comfortable and expressed no complaints. Her sister Eliud vocalized understanding of the risk of amputation provided informed consent for the procedure. The patient was cleared medially by both Dr. Delgado and Dr. Vazquez. Operative findings:: no clinical signs of infection at the amputation site culture swabs taken at proximal BKA stump, around cut surface of tibia amputate lower L leg was additionally sent for pathology Operative note:: The patient was identified in preoperative holding and L leg signed by myself. Consent was reviewed with the patient and her sister, and all questions answered. She was then taken to the OR, where IV antibiotics were infused (ancef + vancomycin). The patient was transferred to the OR table and spinal anesthesia administered by the PIT BOSS. Once the spinal was in, the patient was placed supine and intravenous sedation given. Bandages were removed from the left foot and the left lower extremity prepped and draped in the usual sterile fashion, using a non-sterile tourniquet on the upper thigh. Time out was performed, identifying the correct patient and correct
[2020-02-05 17:02] LABS: POC Glucose,Bedside 88 (70-110)
--- NOTE | 2020-02-05 17:15 | SUR.PHASEI ---
1655: pt. transferred to the floor. Pt. is stable at this time. Denies pain.
[2020-02-05 18:06] LABS: POC Glucose,Bedside 116 (70-110)
--- NOTE | 2020-02-05 19:57 | PC.NURSE ---
PATIENT ARRIVED ON FLOOR TALKING TO PEOPLE THAT WERE NOT IN THE ROOM, MENTIONING ABOUT THE WATER FLOODING THE ROOM , THIS RN RE ORIENTED PATIENT, PATIENT STATES, I KNOW, MY MOM IS GOING TO COME GET ME. THIS RN DRAINED 20ML OF BRIGHT RED BLOOD FROM JDRAIN. PATIENT CONTINUOUSLY PULLED OFF HER BP CUFF AND O2 SENSOR DURING POST OP VITALS. THIS RN PATIENT'S POA SHERMAN RANDALL FOR DNR STATUS AND POA INFORMED THIS RN TO PHONE PATIENT'S SISTER ALEKSEY RANDALL. THIS RN AND LEE ANN PAUL SPOKE WITH PATIENT'S SISTER, ALEKSEY RANDALL TO VERIFY DNR STATUS. NO OTHER CONCERNS AT THIS TIME.
[2020-02-06 01:22] LABS: POC Glucose,Bedside 204 (70-110)
[2020-02-06 03:42] VITALS: BP 135/76; PULSE 104; RESP 18; TEMP 37.2; O2SAT 92
--- NOTE | 2020-02-06 04:38 | PC.NURSE ---
PT HAS NOT SLEPT. CONFUSED. REMAINS ON RA. PT HAS PULLED AT LINES/MITTENS PLACED. CEE TO BSD WITH MEDIUM YELLOW URINE NOTED. LEFT LEG BKA WITH SAMIR WRAP C,D,I. JANICE BULB IN PLACE. PT TOLERATING LIQUIDS. PT HAS BEEN INCONTINENT OF STOOL. PT TURNED.
[2020-02-06 05:28] VITALS: BMI 22.8
[2020-02-06 05:52] LABS: POC Glucose,Bedside 87 (70-110)
[2020-02-06 07:35] VITALS: BP 157/72; PULSE 100; RESP 18; TEMP 37.1; O2SAT 100
--- NOTE | 2020-02-06 07:39 | P.PN_ITS ---
Internal Medicine - PN: Subj *Date: 02/06/20 *Time: 07:39 Interval history: Patient states she feels well. She has a poor appetite. Nursing staff reports patient was confused most of the night and she remains pleasantly confused this morning. Patient had to have mittens applied to prevent her from pulling at IV lines and her dressing. Patient reports she has pain everywhere . Exam Vital signs and Labs for Last 24 Hours: Temp Pulse Resp BP Pulse Ox 98.8 F 100 H 18 157/72 H 100 02/06/20 07:35 02/06/20 07:35 02/06/20 07:35 02/06/20 07:35 02/06/20 07:35 Laboratory Results - last 24 hr 02/05/20 11:15: POC Glucose 116 H 02/05/20 12:25: Blood Type O Positive, Antibody Screen Negative, Crossmatch (AHG) See Detail 02/05/20 14:13: Urine Color Dk yellow, Urine Appearance Cloudy, Urine pH 6.5, Ur Specific [place] 1.020, Urine Protein 1+, Urine Glucose (UA) Negative, Urine Ketones 1+, Urine Blood 3+, Urine Nitrate Negative, Urine Bilirubin Negative, Urine Urobilinogen 0.2, Ur Leukocyte Esterase 2+ A, Urine RBC 20-50, Urine WBC Tntc A, Ur Squamous Epith Cells Occasional, Calcium Oxalate Crystal Trace 02/05/20 16:52: POC Glucose 88 02/05/20 21:03: POC Glucose 204 H 02/06/20 05:42: POC Glucose 87 I & O for Last 24 hours: Intake & Output 02/03/20 02/04/20 02/05/20 02/06/20 11:59 11:59 11:59 11:59 Intake Total 2183 / 2183 Output Total 695 / 695 Balance 1488 / 1488 Weight 122 lb 121 lb 1 oz Microbiology Reports for the Last 24 Hours: Microbiology 02/05/20 15:10 Foot,Left - Deep Gram Stain - Final Narrative: Patient does not appear to be in any pain and is pleasantly confused this morning. She does not remember she is in the hospital. Lungs are clear. Heart rate is irregular. Abdomen is soft. Left BKA site is bandaged with drain in place. Cosby catheter is in place. Assessment and Plan (1) Status post below-knee amputation of left lower extremity Current visit: Yes Status: Acute Category: Surgical Code(s): Z89.512 - Acquired absence of left leg below knee (2) Osteomyelitis of left foot Current visit: No Status: Chronic Qualifiers: Category: Medical Code(s): M86.9 - Osteomyelitis, unspecified (3) Diabetic neuropathy Current visit: No Status: Acute Qualifiers: Category: Medical Code(s): E11.40 - Type 2 diabetes mellitus with diabetic neuropathy, unspecified (4) Diabetes mellitus Current visit: No Status: Chronic Qualifiers: Category: Medical Code(s): E11.9 - Type 2 diabetes mellitus without complications (5) PAD (peripheral artery disease) Current visit: No Status: Chronic Category: Medical Code(s): I73.9 - Peripheral vascular disease, unspecified (6) Pressure ulcer of left heel, stage 4 Current visit: No Status: Chronic Category: Medical Code(s): L89.624 - Pressure ulcer of left heel, stage 4 (7) History of right below knee amputation Current visit: Yes Status: Acute Category: Surgical Code(s): Z89.511 - Acquired absence of right leg below knee - Assessment and plan all Dx Assessment and Plan for all problems:: 1. No change in patient's insulin regimen at this time 2. Cosby catheter may be discontinued today as per postoperative protocol 3. I will start patient on once daily subcutaneous Lovenox for DVT prophylaxis.
[2020-02-06 07:44] LABS: Basophils # 0.1 K/mm3 (0-0.2); Basophils % 0.5 % (0.1-2.0); Chloride 106 mmol/L (98-107); Eosinophils # 0.4 K/mm3 (0.0-0.4); Hematocrit 35.8 % (37.0-47.0); Hemoglobin 11.1 g/dL (12.2-16.2); Lymphocytes # 1.3 K/mm3 (0.7-4.5); Mean Corpuscular Hemoglobin 25.2 pg (27.0-31.2); Mean Corpuscular Volume 81.4 fl (81-99); Mean Platelet Volume 7.7 fl (7.4-10.4); Monocytes # 0.4 K/mm3 (0.1-1.0); Monocytes % 3.2 % (1.7-9.3); Neutrophils # 10.5 K/mm3 (1.8-7.8); Neutrophils % 83.3 % (37.0-80.0); Platelet Count 213 K/mm3 (142-424); Potassium 3.2 mmoL/L (3.5-5.1); Red Cell Distribution Width 16.9 % (11.5-17.5); Sodium 140 mmol/L (136-145); White Blood Count 12.6 K/mm3 (4.8-10.8)
[2020-02-06 07:47] LABS: Anion Gap 8.2 mEq/L (5-15); Blood Urea Nitrogen 11 mg/dl (7-17); Carbon Dioxide 29 mmol/L (22.0-30.0); Creatinine Clearance Estimated 43 mL/min (50-200); Estimated Glomerular Filt Rate 98 ml/min (>60); GFR (African American) 118 ML/MIN (>60)
[2020-02-06 07:48] LABS: Calcium 8.7 mg/dl (8.4-10.2); Glucose 76 mg/dl (74-100)
[2020-02-06 08:13] LABS: C-Reactive Protein 17.2 mg/L (0-4)
[2020-02-06 08:35] LABS: Erythrocyte Sedimentation Rate 32 mm/hr (0-30)
[2020-02-06 10:38] LABS: POC Glucose,Bedside 105 (70-110)
--- NOTE | 2020-02-06 11:30 | P.CONPHA_ITS ---
[facility] Pharmacy VTE Monitoring - Patient Demographics Admission date: 02/06/20 Report Date: 02/06/20 Time: 11:30 Allergies/Adverse Reactions: Patient Allergies codeine Allergy (Mild, Verified 01/25/20 09:21) Gastrointestinal Upset Height: 1.55 m Weight: 54.913 kg Patient Problems: Current Active Problems Status post below-knee amputation of left lower extremity (Acute) History of right below knee amputation (Acute) - VTE Risk Labs: VTE Related Lab Results Hgb 11.1 g/dL (12.2-16.2) L 02/06/20 07:30 Hct 35.8 % (37.0-47.0) L 02/06/20 07:30 Plt Count 213 K/mm3 (142-424) 02/06/20 07:30 BUN 11 mg/dl (7-17) 02/06/20 07:30 Creatinine 0.60 mg/dl (0.52-1.04) 02/06/20 07:30 Estimated Creat Clear 43 mL/min (50-200) 02/06/20 07:30 - Prophylaxis Types of VTE Prophylaxis: Pharmacological Pharmacologic Type: Enoxaparin (LOVENOX ORDERED)
--- NOTE | 2020-02-06 11:41 | HMH.PHAINT ---
MED REC-COMPARED MAR FROM [place] WITH MED LIST.
[2020-02-06 11:48] VITALS: BP 134/70; PULSE 78; RESP 18; TEMP 36.7; O2SAT 99
--- NOTE | 2020-02-06 13:29 | HMH.PHACONS ---
- Pharmacy Consult Date: 02/06/20 Time: 13:29 Referring provider: DR. BLANCO Reason for Consult:: VANCOMYCIN DOSING Allergies and ADEs:: Allergies Allergy/AdvReac Type Severity Reaction Status Date / Time codeine Allergy Mild Gastrointestinal Verified 01/25/20 09:21 Upset Home Medications:: Home Medications Medication Instructions Recorded Confirmed Type donepezil 10 mg tablet 10 mg PO DAILY 03/03/18 02/05/20 History sertraline 50 mg tablet 50 mg PO HS 15 Days #15 tab 12/15/18 02/05/20 History Amlodipine Besylate [Norvasc 2.5mg 7.5 mg PO DAILY 12/31/18 02/05/20 History tablet] Acetaminophen [Acetaminophen Extra 1,000 mg PO Q6HP PRN 01/08/19 02/05/20 History Strength] Clopidogrel Bisulfate [Plavix 75mg 75 mg PO DAILY 01/08/19 02/05/20 History Tab] insulin glargine 100 unit/mL (3 20 unit SQ QHS ml 01/04/20 02/05/20 History mL) subcutaneous pen insulin lispro 100 unit/mL 0 units SQ ACHS ml 01/04/20 02/06/20 History subcutaneous solution mirtazapine 7.5 mg tablet 7.5 mg PO QHS tab 01/04/20 02/05/20 History polyethylene glycol 3350 17 17 g PO DAILY 01/04/20 02/05/20 History gram/dose oral powder memantine 5 mg tablet 5 mg PO BID tab 01/12/20 02/05/20 History potassium chloride 10 mEq 10 meq PO DAILY cap 01/12/20 02/06/20 History capsule,extended release Doxycycline Hyclate [Doxycycline 100 mg PO BID 01/15/20 02/05/20 History 100mg Capsule] Hydrocod/Acet 5/325 mg [Maybeury 1 tab PO TID PRN 01/15/20 02/05/20 History 5/325mg tablet] Saccharomyces Boulardii [Florastor] 250 mg PO DAILY 01/15/20 02/05/20 History Aspirin [Aspirin 81mg chewable 81 mg PO DAILY 01/19/20 02/05/20 History tab] Atorvastatin Calcium [Atorvastatin 40 mg PO DAILY 02/06/20 02/06/20 History 40mg Tab] Docusate Sodium 100 mg PO DAILY 02/06/20 02/06/20 History Height: 1.55 m Weight: 54.913 kg Laboratory Results:: Laboratory Results - last 24 hr 02/05/20 11:15: POC Glucose 116 H 02/05/20 12:25: Blood Type O Positive, Antibody Screen Negative, Crossmatch (AHG) See Detail 02/05/20 14:13: Urine Color Dk yellow, Urine Appearance Cloudy, Urine pH 6.5, Ur Specific [place] 1.020, Urine Protein 1+, Urine Glucose (UA) Negative, Urine Ketones 1+, Urine Blood 3+, Urine Nitrate Negative, Urine Bilirubin Negative, Urine Urobilinogen 0.2, Ur Leukocyte Esterase 2+ A, Urine RBC 20-50, Urine WBC Tntc A, Ur Squamous Epith Cells Occasional, Calcium Oxalate Crystal Trace 02/05/20 16:52: POC Glucose 88 02/05/20 21:03: POC Glucose 204 H 02/06/20 05:42: POC Glucose 87 02/06/20 07:30: ESR 32 H 02/06/20 07:30: C-Reactive Protein 17.2 H 02/06/20 07:30: WBC 12.6 H, RBC 4.40, Hgb 11.1 L, Hct 35.8 L, MCV 81.4, MCH 25.2 L, MCHC 31.0 L, RDW 16.9, Plt Count 213, MPV 7.7, Neut % (Auto) 83.3 H, Lymph % (Auto) 10.0, [place] % (Auto) 3.2, Eos % (Auto) 3.0, Baso % (Auto) 0.5, Neut # (Auto) 10.5 H, Lymph # (Auto) 1.3, [place] # (Auto) 0.4, Eos # (Auto) 0.4, Baso # (Auto) 0.1 02/06/20 07:30: Sodium 140, Potassium 3.2 L, Chloride 106, Carbon Dioxide 29, Anion Gap 8.2, BUN 11, Creatinine 0.60, Estimated Creat Clear 43, Estimated GFR 98, Est GFR ( Amer) 118, Glucose 76, Calcium 8.7 02/06/20 10:29: POC Glucose 105 Medical History: Reports:: Atherosclerotic Heart Disease, Coronary Artery Disease, Cerebrovascular Accident, Diabetes Mellitus Type 2, Hypertension, Peripheral Artery Disease, Peripheral Vascular Disease, Urinary Tract Infection Denies:: Cancer, Diabetes Mellitus Type 1, Internal Pacemaker, MRSA, Seizures Assessment and Plan (1) Status post below-knee amputation of left lower extremity Current visit: Yes Status: Acute Category: Surgical Code(s): Z89.512 - Acquired absence of left leg below knee (2) Osteomyelitis of left foot Current visit: No Status: Chronic Qualifiers: Category: Medical Code(s): M86.9 - Osteomyelitis, unspecified (3) Diabetic neuropathy Current visit: No Status: Acute Qual
--- NOTE | 2020-02-06 14:24 | PC.NURSE ---
Pt is alert to self only and states its 194. RR even and unlabored at this time. Has refused incentive spirometer this shift although have got pt to use a couple times. NAD at this time. Pts appetite is poor. Have encouraged pt to eat, with little success. Family states appetite is always poor. Resting in bed. Have turned and repositioned. F/C still in place at this time, will d/c today. Dru CDI on LBKA and R AKA noted without problems. CB in reach. Pt is confused and speaks nonsensical conversations. Will cont to mx this shift. VSS at this time.
[2020-02-06 16:00] VITALS: BP 145/84; PULSE 96; RESP 17; TEMP 37.2; O2SAT 93
[2020-02-06 16:12] LABS: POC Glucose,Bedside 72 (70-110)
--- NOTE | 2020-02-06 16:14 | HMH.ANESII ---
[facility] Anesthesia Record Part II Discharge Time: 17:30 Destination: Medical Surgical Department PACU nurse assessment reviewed?: Yes Patient Condition:: Good Anesthesia Complications:: None Swallowing reflex intact?: Yes Cyanosis?: No Blood Pressure: 137/85 Pulse Rate: 94 Temperature: 97.9 F Mental Status: Alert & Oriented Pain level:: 0 Nausea and/or vomitting:: None Intake, IV Amount: 0
[2020-02-06 16:15] VITALS: BP 137/85; PULSE 94; TEMP 36.6
--- NOTE | 2020-02-06 17:04 | P.PN_ITS ---
Subjective Date: 02/06/20 Time: 16:30 Principal diagnosis: Status post below-knee amputation, left Interval history: Patient is status post LEFT below-knee amputation post op day #1. Patient is lying down in bed. Patient states she is doing well. Nursing staff reports p carol is pleasantly confused secondary to dementia. She is not reporting any pain or discomfort. No history of any nausea or vomiting. No history of any fevers, chills or rigors. PN: Obj Ex Vital signs: Temp Pulse Resp BP Pulse Ox 97.9 F 94 H 17 137/85 93 L 02/06/20 16:15 02/06/20 16:15 02/06/20 16:00 02/06/20 16:15 02/06/20 16:00 Narrative: Laboratory Results - last 24 hr 02/05/20 11:15: POC Glucose 116 H 02/05/20 21:03: POC Glucose 204 H 02/06/20 05:42: POC Glucose 87 02/06/20 07:30: ESR 32 H 02/06/20 07:30: C-Reactive Protein 17.2 H 02/06/20 07:30: WBC 12.6 H, RBC 4.40, Hgb 11.1 L, Hct 35.8 L, MCV 81.4, MCH 25.2 L, MCHC 31.0 L, RDW 16.9, Plt Count 213, MPV 7.7, Neut % (Auto) 83.3 H, Lymph % (Auto) 10.0, [place] % (Auto) 3.2, Eos % (Auto) 3.0, Baso % (Auto) 0.5, Neut # (Auto) 10.5 H, Lymph # (Auto) 1.3, [place] # (Auto) 0.4, Eos # (Auto) 0.4, Baso # (Auto) 0.1 02/06/20 07:30: Sodium 140, Potassium 3.2 L, Chloride 106, Carbon Dioxide 29, Anion Gap 8.2, BUN 11, Creatinine 0.60, Estimated Creat Clear 43, Estimated GFR 98, Est GFR ( Amer) 118, Glucose 76, Calcium 8.7 02/06/20 10:29: POC Glucose 105 02/06/20 15:57: POC Glucose 72 Microbiology 02/05/20 15:10 Foot,Left - Deep Gram Stain - Final 02/05/20 15:10 Foot,Left - Deep Wound Culture - Preliminary NO GROWTH AFTER 24 HOURS 02/05/20 14:13 Urine,Catheterized Urine Culture - Preliminary NO GROWTH AFTER 24 HOURS Exam Patient is presently confused, awake, no acute distress. Lungs are clear. Heart rate is irregular. Abdomen is soft and nontender. On examination of the left lower extremity, the surgical dressings and splint are in place. No soakage of the dressings or strikethrough noted. A suction drain is in place; nurse reports that it drained about 30 cc today. - Urinary Catheter Management Cosby Cath placed during this visit: no Progress Note: A&P (1) Status post below-knee amputation of left lower extremity Status: Acute Current Visit: Yes (2) Osteomyelitis of left foot Status: Chronic Current Visit: No (3) Diabetic neuropathy Status: Acute Current Visit: No (4) Diabetes mellitus Status: Chronic Current Visit: No (5) PAD (peripheral artery disease) Status: Chronic Current Visit: No (6) Pressure ulcer of left heel, stage 4 Status: Chronic Current Visit: No (7) History of right below knee amputation Status: Acute Current Visit: Yes Assessment and Plan for All Diagnoses:: I have reviewed the clinical findings and progress and discussed with the nursing staff; patient is doing well without any postop problems. Continue DVT prophylaxis, IV antibiotics and continue medical management as per Dr. Delgado. For removal of surgical drain tomorrow if appropriate.
[2020-02-06 18:05] LABS: Adenovirus F 40/41, stool Not Detected (NotDetected); Astrovirus Not Detected (NotDetected); Campylobacter Not Detected (NotDetected); Clostridium Difficile A/B, PCR Not Detected (NotDetected); Cryptosporidium Not Detected (NotDetected); Cyclospora Cayetanesis Not Detected (NotDetected); Entamoeba histolytica Not Detected (NotDetected); Enteroaggregative E coli Not Detected (NotDetected); Enteropathogenic E coli Not Detected (NotDetected); Enterotoxigenic E coli Not Detected (NotDetected); Giardia lamblia Not Detected (NotDetected); Norovirus Not Detected (NotDetected); Plesimonas Shigalloides, PCR Not Detected (NotDetected); Rotavirus A Not Detected (NotDetected); Salmonella, PCR Not Detected (NotDetected); Sapovirus Not Detected (NotDetected); Shiga-like toxin E coli Not Detected (NotDetected); Shigella Enterovasive E coli Not Detected (NotDetected); Vibrio Cholerae Not Detected (NotDetected); Vibrio, PCR Not Detected (NotDetected); Yersinia Entercolitica, PCR Not Detected (NotDetected)
[2020-02-06 19:30] VITALS: BP 165/82; PULSE 93; RESP 18; TEMP 36.8; O2SAT 100
[2020-02-06 20:34] LABS: POC Glucose,Bedside 84 (70-110)
[2020-02-07] VITALS (7 sets, daily range): BP systolic 122–171; BP diastolic 58–86; PULSE 81–95; RESP 16–18; TEMP 36.7–37.4; O2SAT 98–100; BMI 22.1; BMI 22.0
--- NOTE | 2020-02-07 03:19 | PC.NURSE ---
AT BEGINNING OF SHIFT PT. ABLE TO STATE NAME AND ; UNABLE TO STATE YEAR OR PLACE. DSG C/D/I TO LLE, LLE ELEVATED; JANICE DRAIN STRIPPED AND IN PLACE WITH SANGUINEOUS DRAINAGE BRIGHT RED IN COLOR. PT. DENIES PAIN WHEN ASKED. PT. RESTING WITH EYES CLOSED AT THIS TIME.
--- NOTE | 2020-02-07 04:04 | PC.NURSE ---
NURSE NOTIFIED OF ELEVATED BP
--- NOTE | 2020-02-07 07:41 | HMH.ACPN2 ---
Internal Medicine - PN: Subj *Date: 02/07/20 *Time: 07:41 Interval history: Patient is resting comfortably this morning. She continues to claim she has pain everywhere . Blood pressures have been running high. Exam Vital signs and Labs for Last 24 Hours: Temp Pulse Resp BP Pulse Ox 98.3 F 84 16 171/86 H 100 02/07/20 04:00 02/07/20 04:00 02/07/20 04:00 02/07/20 04:00 02/07/20 04:00 Laboratory Results - last 24 hr 02/06/20 07:30: ESR 32 H 02/06/20 07:30: C-Reactive Protein 17.2 H 02/06/20 07:30: WBC 12.6 H, RBC 4.40, Hgb 11.1 L, Hct 35.8 L, MCV 81.4, MCH 25.2 L, MCHC 31.0 L, RDW 16.9, Plt Count 213, MPV 7.7, Neut % (Auto) 83.3 H, Lymph % (Auto) 10.0, [place] % (Auto) 3.2, Eos % (Auto) 3.0, Baso % (Auto) 0.5, Neut # (Auto) 10.5 H, Lymph # (Auto) 1.3, [place] # (Auto) 0.4, Eos # (Auto) 0.4, Baso # (Auto) 0.1 02/06/20 07:30: Sodium 140, Potassium 3.2 L, Chloride 106, Carbon Dioxide 29, Anion Gap 8.2, BUN 11, Creatinine 0.60, Estimated Creat Clear 43, Estimated GFR 98, Est GFR ( Amer) 118, Glucose 76, Calcium 8.7 02/06/20 10:29: POC Glucose 105 02/06/20 15:15: Stl Aeromonas (PCR) Not detected, Stl C. cayetanensis PCR Not detected, Stool Rotavirus (PCR) Not detected, Stl Adenov F 40/41 PCR Not detected, Stool Astrovirus (PCR) Not detected, Stool Campylobacter PCR Not detected, Stl C.difficile Tox PCR Not detected, Stool Cryptosporidium PCR Not detected, Stl E.coli Shiga Tox PCR Not detected, Stool E coli O157 PCR Not detected, Stl Enterotoxigenic E PCR Not detected, Stool EPEC (PCR) Not detected, Stool EAEC (PCR) Not detected, Stl E. histolytica PCR Not detected, Stool Giardia Lamblia PCR Not detected, Stool Salmonella PCR Not detected, Stool Sapovirus (PCR) Not detected, Stl P. shigelloides PCR Not detected, Stl Shigella/EIEC PCR Not detected, St Y.enterocolitica PCR Not detected, Stool Vibrio (PCR) Not detected, Stl Vibrio cholerae PCR Not detected, Stl Norovirus GI/GII PCR Not detected 02/06/20 15:57: POC Glucose 72 02/06/20 19:41: POC Glucose 84 I & O for Last 24 hours: Intake & Output 02/04/20 02/05/20 02/06/20 02/07/20 11:59 11:59 11:59 11:59 Intake Total 2183 / 2183 1935 / 1935 Output Total 695 / 695 1230 / 1230 Balance 1488 / 1488 705 / 705 Weight 122 lb 121 lb 1 oz 117 lb 7 oz Microbiology Reports for the Last 24 Hours: Microbiology 02/05/20 15:10 Foot,Left - Deep Gram Stain - Final 02/05/20 15:10 Foot,Left - Deep Wound Culture - Preliminary NO GROWTH AFTER 24 HOURS 02/05/20 14:13 Urine,Catheterized Urine Culture - Preliminary NO GROWTH AFTER 24 HOURS Narrative: Patient appears comfortable and in no distress. Lungs are clear. Heart has a regular rate and rhythm Assessment and Plan (1) Status post below-knee amputation of left lower extremity Current visit: Yes Status: Acute Category: Surgical Code(s): Z89.512 - Acquired absence of left leg below knee (2) Osteomyelitis of left foot Current visit: No Status: Chronic Qualifiers: Category: Medical Code(s): M86.9 - Osteomyelitis, unspecified (3) Diabetic neuropathy Current visit: No Status: Acute Qualifiers: Category: Medical Code(s): E11.40 - Type 2 diabetes mellitus with diabetic neuropathy, unspecified (4) Diabetes mellitus Current visit: No Status: Chronic Qualifiers: Category: Medical Code(s): E11.9 - Type 2 diabetes mellitus without complications (5) PAD (peripheral artery disease) Current visit: No Status: Chronic Category: Medical Code(s): I73.9 - Peripheral vascular disease, unspecified (6) Pressure ulcer of left heel, stage 4 Current visit: No Status: Chronic Category: Medical Code(s): L89.624 - Pressure ulcer of left heel, stage 4 (7) History of right below knee amputation Current visit: Yes Status: Acute Category: Surgical Code(s): Z89.511 - Acquired absence of right leg below
[2020-02-07 11:55] LABS: POC Glucose,Bedside 99 (70-110)
--- NOTE | 2020-02-07 14:44 | PC.NURSE ---
Pt is confused per self. RR even and unlabored. Did change IV as, pt did pull one out of L arm earlier this shift. She currently has a 20 gauge IV in the R hand and NS infusing @ 75 ml/hr. Incont of b&b and changed per staff. Has been turned and repositioned this shift. NAD at this time. VSS at this time.
[2020-02-07 15:20] LABS: POC Glucose,Bedside 136 (70-110)
--- NOTE | 2020-02-07 21:29 | P.PN_ITS ---
Subjective Date: 02/07/20 Time: 20:50 Principal diagnosis: Status post below-knee amputation, left Interval history: Patient is status post LEFT below-knee amputation post op day #2. Patient is lying down in bed. Patient states she is doing well. Nursing staff reports p atient has been pleasantly confused secondary to dementia. She is not reporting any pain or discomfort. No history of any nausea or vomiting. No history of any fevers, chills or rigors. PN: Obj Ex Vital signs: Temp Pulse Resp BP Pulse Ox 98.7 F 81 16 145/75 H 98 02/07/20 19:59 02/07/20 19:59 02/07/20 19:59 02/07/20 19:59 02/07/20 19:59 Narrative: Laboratory Results - last 24 hr 02/07/20 11:48: POC Glucose 99 02/07/20 15:07: POC Glucose 136 H Microbiology 02/05/20 15:10 Foot,Left - Deep Gram Stain - Final 02/05/20 15:10 Foot,Left - Deep Wound Culture - Preliminary NO GROWTH AFTER 48 HOURS 02/05/20 14:13 Urine,Catheterized Urine Culture - Final NO GROWTH AFTER 48 HOURS Exam Patient is pleasantly confused, awake, no acute distress. Lungs are clear. Heart regular rate and rhythm. Abdomen is soft and nontender. On examination of the left lower extremity, the surgical dressings and splint are in place. No soakage of the dressings or strikethrough noted. The suction drain is in place; nursing staff reports that it drained about less than cc today. I have pulled out the drain today. There is minimal soakage of the deeper dressings. A sugar tong's type splint is in place. - Urinary Catheter Management Cosby Cath placed during this visit: no Progress Note: A&P (1) Status post below-knee amputation of left lower extremity Status: Acute Current Visit: Yes (2) Osteomyelitis of left foot Status: Chronic Current Visit: No (3) Diabetic neuropathy Status: Acute Current Visit: No (4) Diabetes mellitus Status: Chronic Current Visit: No (5) PAD (peripheral artery disease) Status: Chronic Current Visit: No (6) Pressure ulcer of left heel, stage 4 Status: Chronic Current Visit: No (7) History of right below knee amputation Status: Acute Current Visit: Yes (8) Hypertension Status: Acute Current Visit: Yes Assessment and Plan for All Diagnoses:: I have reviewed the clinical findings and progress and discussed with the nursing staff; patient is doing well without any postop problems. The surgical drain has been removed. Continue DVT prophylaxis, IV antibiotics and continue medical management as per Dr. Delgado.
--- NOTE | 2020-02-07 22:05 | PC.NURSE ---
2119- MD Andrea at bedside; did not want to do a dsg change at this time. JANICE drain D/C and lle re-wrapped with SAMIR bandage. no new orders at this time.
[2020-02-08 01:13] LABS: POC Glucose,Bedside 121 (70-110)
[2020-02-08 03:41] VITALS: BP 155/66; PULSE 74; RESP 16; TEMP 37.2; O2SAT 99
[2020-02-08 05:00] VITALS: BMI 22.1
[2020-02-08 06:34] LABS: POC Glucose,Bedside 64 (70-110)
[2020-02-08 06:34] LABS: POC Glucose,Bedside 86 (70-110)
[2020-02-08 07:07] LABS: Basophils % 0.1 % (0.1-2.0); Eosinophils # 0.2 K/mm3 (0.0-0.4); Eosinophils % 2.3 % (0.1-12.0); Hematocrit 32.1 % (37.0-47.0); Lymphocytes # 1.3 K/mm3 (0.7-4.5); Lymphocytes % 11.9 % (10-50); Mean Corpuscular HGB Conc 31.1 g/dL (31.8-35.4); Mean Corpuscular Hemoglobin 25.7 pg (27.0-31.2); Mean Corpuscular Volume 82.5 fl (81-99); Monocytes # 0.7 K/mm3 (0.1-1.0); Monocytes % 6.6 % (1.7-9.3); Neutrophils # 8.4 K/mm3 (1.8-7.8); Neutrophils % 79.2 % (37.0-80.0); Platelet Count 192 K/mm3 (142-424); Red Blood Count 3.89 M/mm3 (4.20-5.40); Red Cell Distribution Width 17.3 % (11.5-17.5); White Blood Count 10.6 K/mm3 (4.8-10.8)
[2020-02-08 07:09] LABS: Chloride 102 mmol/L (98-107); Sodium 140 mmol/L (136-145)
[2020-02-08 07:12] LABS: Anion Gap 8.2 mEq/L (5-15); Blood Urea Nitrogen 5 mg/dl (7-17); Carbon Dioxide 32 mmol/L (22.0-30.0); Creatinine Clearance Estimated 41 mL/min (50-200); Estimated Glomerular Filt Rate 121 ml/min (>60); GFR (African American) 146 ML/MIN (>60)
[2020-02-08 07:13] LABS: Calcium 8.4 mg/dl (8.4-10.2); Glucose 104 mg/dl (74-100)
[2020-02-08 07:14] LABS: Potassium 2.2 mmoL/L (3.5-5.1)
--- NOTE | 2020-02-08 07:27 | HMH.ACPN2 ---
Internal Medicine - PN: Subj *Date: 02/08/20 *Time: 07:27 Interval history: Patient has no complaints this morning. She continues to states she has pain everywhere . She believes she did sleep well. Exam Vital signs and Labs for Last 24 Hours: Temp Pulse Resp BP Pulse Ox 98.9 F 74 16 155/66 H 99 02/08/20 03:41 02/08/20 03:41 02/08/20 03:41 02/08/20 03:41 02/08/20 03:41 Laboratory Results - last 24 hr 02/07/20 11:48: POC Glucose 99 02/07/20 15:07: POC Glucose 136 H 02/07/20 19:44: POC Glucose 121 H 02/08/20 05:37: POC Glucose 64 L 02/08/20 05:50: POC Glucose 86 02/08/20 06:25: WBC 10.6, RBC 3.89 L, Hgb 10.0 L, Hct 32.1 L, MCV 82.5, MCH 25.7 L, MCHC 31.1 L, RDW 17.3, Plt Count 192, MPV 8.0, Neut % (Auto) 79.2, Lymph % (Auto) 11.9, [place] % (Auto) 6.6, Eos % (Auto) 2.3, Baso % (Auto) 0.1, Neut # (Auto) 8.4 H, Lymph # (Auto) 1.3, [place] # (Auto) 0.7, Eos # (Auto) 0.2, Baso # (Auto) 0.0 02/08/20 06:25: Sodium 140, Potassium 2.2 L* D, Chloride 102, Carbon Dioxide 32 H, Anion Gap 8.2, BUN 5 L D, Creatinine 0.50 L, Estimated Creat Clear 41, Estimated GFR 121, Est GFR ( Amer) 146 D, Glucose 104 H, Calcium 8.4 I & O for Last 24 hours: Intake & Output 02/05/20 02/06/20 02/07/20 02/08/20 11:59 11:59 11:59 11:59 Intake Total 2183 / 2183 2175 / 2175 2353 / 2353 Output Total 695 / 695 1230 / 1230 Balance 1488 / 1488 945 / 945 2332 / 2332 Weight 121 lb 1 oz 117 lb 7 oz 117 lb 2 oz Microbiology Reports for the Last 24 Hours: Microbiology 02/05/20 15:10 Foot,Left - Deep Gram Stain - Final 02/05/20 15:10 Foot,Left - Deep Wound Culture - Preliminary NO GROWTH AFTER 48 HOURS 02/05/20 14:13 Urine,Catheterized Urine Culture - Final NO GROWTH AFTER 48 HOURS Narrative: Patient is jovial this morning and pleasantly confused. Lungs are clear to auscultation. Heart has a regular rate and rhythm. Left lower extremity has postoperative bandage that is intact. Assessment and Plan (1) Status post below-knee amputation of left lower extremity Current visit: Yes Status: Acute Category: Surgical Code(s): Z89.512 - Acquired absence of left leg below knee (2) Osteomyelitis of left foot Current visit: No Status: Chronic Qualifiers: Category: Medical Code(s): M86.9 - Osteomyelitis, unspecified (3) Diabetic neuropathy Current visit: No Status: Acute Qualifiers: Category: Medical Code(s): E11.40 - Type 2 diabetes mellitus with diabetic neuropathy, unspecified (4) Diabetes mellitus Current visit: No Status: Chronic Qualifiers: Category: Medical Code(s): E11.9 - Type 2 diabetes mellitus without complications (5) PAD (peripheral artery disease) Current visit: No Status: Chronic Category: Medical Code(s): I73.9 - Peripheral vascular disease, unspecified (6) Pressure ulcer of left heel, stage 4 Current visit: No Status: Chronic Category: Medical Code(s): L89.624 - Pressure ulcer of left heel, stage 4 (7) History of right below knee amputation Current visit: Yes Status: Acute Category: Surgical Code(s): Z89.511 - Acquired absence of right leg below knee (8) Hypertension Current visit: Yes Status: Acute Category: Medical Code(s): I10 - Essential (primary) hypertension - Assessment and plan all Dx Assessment and Plan for all problems:: 1. Patient has hypokalemia on this morning's labs and will be started on oral potassium replacement. Patient is medically stable and can be discharged when orthopedic service deems appropriate
[2020-02-08 08:00] VITALS: BP 148/50; PULSE 74; RESP 16; TEMP 36.5; O2SAT 100
[2020-02-08 08:21] VITALS: PULSE 74; RESP 16; O2SAT 100
--- NOTE | 2020-02-08 10:26 | HMH.PHACONS ---
- Pharmacy Consult Date: 02/08/20 Time: 10:26 Referring provider: DR. BLANCO Reason for Consult:: VANCOMYCIN TROUGH LEVEL Allergies and ADEs:: Allergies Allergy/AdvReac Type Severity Reaction Status Date / Time codeine Allergy Mild Gastrointestinal Verified 01/25/20 09:21 Upset Home Medications:: Home Medications Medication Instructions Recorded Confirmed Type donepezil 10 mg tablet 10 mg PO DAILY 03/03/18 02/05/20 History sertraline 50 mg tablet 50 mg PO HS 15 Days #15 tab 12/15/18 02/05/20 History Amlodipine Besylate [Norvasc 2.5mg 7.5 mg PO DAILY 12/31/18 02/05/20 History tablet] Acetaminophen [Acetaminophen Extra 1,000 mg PO Q6HP PRN 01/08/19 02/05/20 History Strength] Clopidogrel Bisulfate [Plavix 75mg 75 mg PO DAILY 01/08/19 02/05/20 History Tab] insulin glargine 100 unit/mL (3 20 unit SQ QHS ml 01/04/20 02/05/20 History mL) subcutaneous pen insulin lispro 100 unit/mL 0 units SQ ACHS ml 01/04/20 02/06/20 History subcutaneous solution mirtazapine 7.5 mg tablet 7.5 mg PO QHS tab 01/04/20 02/05/20 History polyethylene glycol 3350 17 17 g PO DAILY 01/04/20 02/05/20 History gram/dose oral powder memantine 5 mg tablet 5 mg PO BID tab 01/12/20 02/05/20 History potassium chloride 10 mEq 10 meq PO DAILY cap 01/12/20 02/06/20 History capsule,extended release Doxycycline Hyclate [Doxycycline 100 mg PO BID 01/15/20 02/05/20 History 100mg Capsule] Hydrocod/Acet 5/325 mg [Foster 1 tab PO TID PRN 01/15/20 02/05/20 History 5/325mg tablet] Saccharomyces Boulardii [Florastor] 250 mg PO DAILY 01/15/20 02/05/20 History Aspirin [Aspirin 81mg chewable 81 mg PO DAILY 01/19/20 02/05/20 History tab] Atorvastatin Calcium [Atorvastatin 40 mg PO DAILY 02/06/20 02/06/20 History 40mg Tab] Docusate Sodium 100 mg PO DAILY 02/06/20 02/06/20 History Height: 1.55 m Weight: 53.127 kg Laboratory Results:: Laboratory Results - last 24 hr 02/07/20 11:48: POC Glucose 99 02/07/20 15:07: POC Glucose 136 H 02/07/20 19:44: POC Glucose 121 H 02/08/20 05:37: POC Glucose 64 L 02/08/20 05:50: POC Glucose 86 02/08/20 06:25: WBC 10.6, RBC 3.89 L, Hgb 10.0 L, Hct 32.1 L, MCV 82.5, MCH 25.7 L, MCHC 31.1 L, RDW 17.3, Plt Count 192, MPV 8.0, Neut % (Auto) 79.2, Lymph % (Auto) 11.9, [place] % (Auto) 6.6, Eos % (Auto) 2.3, Baso % (Auto) 0.1, Neut # (Auto) 8.4 H, Lymph # (Auto) 1.3, [place] # (Auto) 0.7, Eos # (Auto) 0.2, Baso # (Auto) 0.0 02/08/20 06:25: Sodium 140, Potassium 2.2 L* D, Chloride 102, Carbon Dioxide 32 H, Anion Gap 8.2, BUN 5 L D, Creatinine 0.50 L, Estimated Creat Clear 41, Estimated GFR 121, Est GFR ( Amer) 146 D, Glucose 104 H, Calcium 8.4 02/08/20 09:10: Vancomycin Trough 7.0 Medical History: Reports:: Atherosclerotic Heart Disease, Coronary Artery Disease, Cerebrovascular Accident, Diabetes Mellitus Type 2, Hypertension, Peripheral Artery Disease, Peripheral Vascular Disease, Urinary Tract Infection Denies:: Cancer, Diabetes Mellitus Type 1, Internal Pacemaker, MRSA, Seizures Assessment and Plan (1) Status post below-knee amputation of left lower extremity Current visit: Yes Status: Acute Category: Surgical Code(s): Z89.512 - Acquired absence of left leg below knee (2) Osteomyelitis of left foot Current visit: No Status: Chronic Qualifiers: Category: Medical Code(s): M86.9 - Osteomyelitis, unspecified (3) Diabetic neuropathy Current visit: No Status: Acute Qualifiers: Category: Medical Code(s): E11.40 - Type 2 diabetes mellitus with diabetic neuropathy, unspecified (4) Diabetes mellitus Current visit: No Status: Chronic Qualifiers: Category: Medical Code(s): E11.9 - Type 2 diabetes mellitus without complications (5) PAD (peripheral artery disease) Current visit: No Status: Chronic Category: Medical Code(s): I73.9 - Peripheral vascular disease, unspecified (6) Pressure ulcer of left heel, stage 4 Curr
[2020-02-08 11:05] LABS: POC Glucose,Bedside 122 (70-110)
[2020-02-08 11:35] VITALS: BP 134/68; PULSE 81; RESP 16; TEMP 37.1; O2SAT 100
--- NOTE | 2020-02-08 13:47 | SW/DCPLANNER ---
PATIENT IS FROM [place] AND IS ON A MEDICAID BEDHOLD.. SHE PRESENTED INTO THE HOSPITAL WITH A LEFT BKA.. SHE HAD A DIABETIC ULCER WITH OSTEO..... I MADE CONTACT WITH JARETH AT [facility] AND THEY ARE EXPECTING HER RETURN ONCE MEDICALLY READY FOR A DISCHARGE FROM THE HOSPITAL..
--- NOTE | 2020-02-08 15:38 | HMH.ORTHPN ---
Subjective Date: 02/08/20 Time: 14:00 Principal diagnosis: Status post below-knee amputation, left Interval history: The patient is doing well this afternoon. She reports pain in the L leg. No fevers reported. Drain was removed over the weekend, surgical dressing remains intact. PN: Obj Ex Vital signs: Temp Pulse Resp BP Pulse Ox 98.7 F 81 16 134/68 100 02/08/20 11:35 02/08/20 11:35 02/08/20 11:35 02/08/20 11:35 02/08/20 11:35 - Constitutional no acute distress - Routine HEENT Exam Head: Present: normocephalic Eye: Present: EOMI ENT: Present: mucous membranes moist - Routine Respiratory Exam Absent: respiratory distress - Routine Cardiovascular Exam Present: RRR - Routine Abdominal Exam Present: soft. Absent: tenderness - Routine Extremities Exam Comments: R AKA well-healed L BKA surgical dressings/splint removed deep layers of dressing with moderate drainage, moist skin intact with some blistering around incision, serous drainage; sutures intact L BKA no periwound erythema L BKA, no active drainage L BKA stump diffusely tender to touch, no knee ROM tolerated - Routine Skin Exam Present: warm. Absent: gangrene, ecchymosis - Routine Neurological Exam Present: alert, altered mental status, moving all extremities, normal tone, vision grossly intact, hearing grossly intact, normal speech. Absent: oriented X3, sensory deficit, motor deficit - Routine Psychiatric Exam Present: agitated - Urinary Catheter Management Cosby Cath placed during this visit: yes, but has since been removed by the nurse Urethral indwelling: Yes Reason for continuing: Decision to DC catheter Insertion date: 02/05/20 Removal date: 02/06/20 Progress Note: A&P (1) Status post below-knee amputation of left lower extremity Status: Acute Current Visit: Yes (2) Osteomyelitis of left foot Status: Chronic Current Visit: No (3) Diabetic neuropathy Status: Acute Current Visit: No (4) Diabetes mellitus Status: Chronic Current Visit: No (5) PAD (peripheral artery disease) Status: Chronic Current Visit: No (6) Pressure ulcer of left heel, stage 4 Status: Chronic Current Visit: No (7) History of right below knee amputation Status: Acute Current Visit: Yes (8) Hypertension Status: Acute Current Visit: Yes Assessment and Plan for All Diagnoses:: 74yo F POD 3 s/p L BKA -- dressings changed today, splint d/c'd: xeroform, betadine-moistened gauze, dry 4x4s, ABD, kerlix, SAMIR wrap with EdemaWear over the top -- may place SCD on an upper extremity if patient tolerates; s/p R AKA December 2018 -- continue vancomycin until final cultures received and CRP normalizes; cultures sent from proximal BKA stump -- PT has evaluated patient, who was unable to follow commands or actively participate in PT due to altered baseline mental status. May be OOB as tolerated with assist, but nurses will have to transfer with a lift. -- Dr. Delgado on consult for medical management -- encourage IS 10x/hour while awake -- continue baseline ASA/plavix; may add addition anticoagulation if deemed necessary by Dr. Delgado. Patient underwent stenting of L SFA [address] Vazquez, with the plan to continue ASA/plavix x1 month and then transition to Xarelto. -- pain control: norco + morphine PRN, tylenol PRN -- dispo planning: will return to correction, likely tomorrow if potassium is within normal limits
[2020-02-08 15:42] VITALS: BP 117/60; PULSE 77; RESP 16; TEMP 37.1; O2SAT 100
[2020-02-08 15:46] LABS: POC Glucose,Bedside 82 (70-110)
[2020-02-08 20:00] VITALS: BP 125/58; PULSE 84; RESP 16; TEMP 37.1; O2SAT 98
[2020-02-09] VITALS: BP 121/62; PULSE 83; RESP 16; TEMP 36.8; O2SAT 100
[2020-02-09 00:37] LABS: POC Glucose,Bedside 186 (70-110)
[2020-02-09 00:37] LABS: POC Glucose,Bedside 101 (70-110)
[2020-02-09 04:00] VITALS: BP 149/71; PULSE 76; RESP 16; TEMP 36.7; O2SAT 100
[2020-02-09 05:00] VITALS: BMI 21.4
[2020-02-09 05:25] LABS: POC Glucose,Bedside 69 (70-110)
--- NOTE | 2020-02-09 06:11 | PC.NURSE ---
Pt is alert to name,, and place this shift at times. Remains pleasantly confused. Drsg to LLE remains C/D/I and pt has had no complaints reported this shift. She has been somewhat resistive to care, refusing SSI and it took multiple requests for pt to take PO meds and lantus before pt agreed. Pt has been readjusted Q2H to prevent breakdown. Pt was bathed this shift.
[2020-02-09 07:03] LABS: Basophils # 0.1 K/mm3 (0-0.2); Basophils % 0.5 % (0.1-2.0); Eosinophils # 0.6 K/mm3 (0.0-0.4); Eosinophils % 4.9 % (0.1-12.0); Hematocrit 29.7 % (37.0-47.0); Hemoglobin 9.1 g/dL (12.2-16.2); Lymphocytes # 1.7 K/mm3 (0.7-4.5); Lymphocytes % 15.3 % (10-50); Mean Corpuscular HGB Conc 30.5 g/dL (31.8-35.4); Mean Corpuscular Hemoglobin 25.4 pg (27.0-31.2); Mean Corpuscular Volume 83.4 fl (81-99); Monocytes # 0.7 K/mm3 (0.1-1.0); Monocytes % 5.8 % (1.7-9.3); Neutrophils # 8.2 K/mm3 (1.8-7.8); Neutrophils % 73.5 % (37.0-80.0); Platelet Count 196 K/mm3 (142-424); Red Blood Count 3.57 M/mm3 (4.20-5.40); Red Cell Distribution Width 17.4 % (11.5-17.5); White Blood Count 11.2 K/mm3 (4.8-10.8)
[2020-02-09 07:08] LABS: Anion Gap 5.8 mEq/L (5-15); Blood Urea Nitrogen 4 mg/dl (7-17); Calcium 8.5 mg/dl (8.4-10.2); Carbon Dioxide 31 mmol/L (22.0-30.0); Chloride 106 mmol/L (98-107); Creatinine Clearance Estimated 43 mL/min (50-200); Estimated Glomerular Filt Rate 121 ml/min (>60); GFR (African American) 146 ML/MIN (>60); Glucose 57 mg/dl (74-100); Sodium 140 mmol/L (136-145)
[2020-02-09 07:13] LABS: C-Reactive Protein 45.6 mg/L (0-4)
--- NOTE | 2020-02-09 07:15 | HMH.ACPN2 ---
Internal Medicine - PN: Subj *Date: 02/09/20 *Time: 07:15 Interval history: Patient has no complaints this morning. Exam Vital signs and Labs for Last 24 Hours: Temp Pulse Resp BP Pulse Ox 98.0 F 76 16 149/71 H 100 02/09/20 04:00 02/09/20 04:00 02/09/20 04:00 02/09/20 04:00 02/09/20 04:00 Laboratory Results - last 24 hr 02/05/20 12:25: Crossmatch (AHG) See Detail 02/07/20 05:20: POC Glucose 82 02/08/20 09:10: Vancomycin Trough 7.0 02/08/20 10:55: POC Glucose 122 H 02/08/20 16:52: POC Glucose 101 02/08/20 21:13: POC Glucose 186 H 02/09/20 05:11: POC Glucose 69 L 02/09/20 06:25: WBC 11.2 H, RBC 3.57 L, Hgb 9.1 L, Hct 29.7 L, MCV 83.4, MCH 25.4 L, MCHC 30.5 L, RDW 17.4, Plt Count 196, MPV 8.0, Neut % (Auto) 73.5, Lymph % (Auto) 15.3, [place] % (Auto) 5.8, Eos % (Auto) 4.9, Baso % (Auto) 0.5, Neut # (Auto) 8.2 H, Lymph # (Auto) 1.7, [place] # (Auto) 0.7, Eos # (Auto) 0.6 H, Baso # (Auto) 0.1 I & O for Last 24 hours: Intake & Output 02/06/20 02/07/20 02/08/20 02/09/20 11:59 11:59 11:59 11:59 Intake Total 2183 / 2183 2175 / 2175 2473 / 2473 2007 Output Total 695 / 695 1230 / 1230 Balance 1488 / 1488 945 / 945 2452 / 2452 2006 Weight 121 lb 1 oz 117 lb 7 oz 117 lb 2 oz 121 lb 4 oz Microbiology Reports for the Last 24 Hours: Microbiology 02/05/20 15:10 Foot,Left - Deep Gram Stain - Final 02/05/20 15:10 Foot,Left - Deep Wound Culture - Preliminary NO GROWTH AFTER 72 HOURS Narrative: Patient is awake and alert. Lungs are clear. Heart has a regular rate and rhythm. Assessment and Plan (1) Status post below-knee amputation of left lower extremity Current visit: Yes Status: Acute Category: Surgical Code(s): Z89.512 - Acquired absence of left leg below knee (2) Osteomyelitis of left foot Current visit: No Status: Chronic Qualifiers: Category: Medical Code(s): M86.9 - Osteomyelitis, unspecified (3) Diabetic neuropathy Current visit: No Status: Acute Qualifiers: Category: Medical Code(s): E11.40 - Type 2 diabetes mellitus with diabetic neuropathy, unspecified (4) Diabetes mellitus Current visit: No Status: Chronic Qualifiers: Category: Medical Code(s): E11.9 - Type 2 diabetes mellitus without complications (5) PAD (peripheral artery disease) Current visit: No Status: Chronic Category: Medical Code(s): I73.9 - Peripheral vascular disease, unspecified (6) Pressure ulcer of left heel, stage 4 Current visit: No Status: Chronic Category: Medical Code(s): L89.624 - Pressure ulcer of left heel, stage 4 (7) History of right below knee amputation Current visit: Yes Status: Acute Category: Surgical Code(s): Z89.511 - Acquired absence of right leg below knee (8) Hypertension Current visit: Yes Status: Acute Category: Medical Code(s): I10 - Essential (primary) hypertension (9) Hypokalemia Current visit: Yes Status: Acute Category: Medical Code(s): E87.6 - Hypokalemia - Assessment and plan all Dx Assessment and Plan for all problems:: 1. Awaiting BMP this morning. Patient was started on potassium yesterday due to hypokalemia likely induced by the addition of hydrochlorothiazide to her antihypertensive regimen. As long as potassium is improving patient can be discharged back to the nursing facility where she resides.
[2020-02-09 07:38] LABS: Potassium 2.8 mmoL/L (3.5-5.1)
[2020-02-09 08:00] VITALS: BP 144/62; PULSE 80; RESP 16; TEMP 36.9; O2SAT 100
[2020-02-09 11:29] VITALS: BP 145/83; PULSE 74; RESP 17; TEMP 37.3; O2SAT 100
[2020-02-09 12:20] LABS: POC Glucose,Bedside 88 (70-110)
--- NOTE | 2020-02-09 12:44 | P.PN_ITS ---
Subjective Date: 02/09/20 Time: 11:30 Principal diagnosis: Status post below-knee amputation, left Interval history: The patient is doing well, dementia appears stable; the patient is not oriented to place or time. No pain reported today. PN: Obj Ex Vital signs: Temp Pulse Resp BP Pulse Ox 99.2 F 74 17 145/83 H 100 02/09/20 11:29 02/09/20 11:29 02/09/20 11:29 02/09/20 11:29 02/09/20 11:29 - Constitutional no acute distress - Routine HEENT Exam Head: Present: normocephalic Eye: Present: EOMI ENT: Present: mucous membranes moist - Routine Respiratory Exam Absent: respiratory distress - Routine Cardiovascular Exam Present: RRR - Routine Abdominal Exam Present: soft - Routine Extremities Exam Comments: R AKA well-healed L BKA dressings c/d/i; no strikethrough L BKA tender to touch; no erythema or drainage SILT L BKA, skin warm/pink - Routine Skin Exam Present: warm - Routine Neurological Exam Present: alert, altered mental status, moving all extremities, normal tone, hearing grossly intact, normal speech. Absent: oriented X3, sensory deficit, motor deficit - Urinary Catheter Management Cosby Cath placed during this visit: yes, but has since been removed by the nurse Urethral indwelling: Yes Insertion date: 02/05/20 Removal date: 02/06/20 Progress Note: A&P (1) Status post below-knee amputation of left lower extremity Status: Acute Current Visit: Yes (2) Osteomyelitis of left foot Status: Chronic Current Visit: No (3) Diabetic neuropathy Status: Acute Current Visit: No (4) Diabetes mellitus Status: Chronic Current Visit: No (5) PAD (peripheral artery disease) Status: Chronic Current Visit: No (6) Pressure ulcer of left heel, stage 4 Status: Chronic Current Visit: No (7) History of right below knee amputation Status: Acute Current Visit: Yes (8) Hypertension Status: Acute Current Visit: Yes (9) Hypokalemia Status: Acute Current Visit: Yes Assessment and Plan for All Diagnoses:: 74yo F POD 4 s/p L BKA -- IV potassium ordered this morning; will d/c on oral supplement -- continue wound care at SNF: xeroform, betadine-moistened gauze/dry gauze, ABD, kerlix, SAMIR + EdemaWear wrap -- continue antibiotics until final cultures received and CRP normalizes; will d/c on Bactrim -- continue baseline ASA/plavix -- dispo planning: will d/c to [facility] today; f/u with me in 1 week
--- NOTE | 2020-02-09 12:59 | HMH.DCSUM ---
General - General Admission date:: 02/05/20 Discharge date: 02/09/20 HPI HPI: 74yo F admitted after undergoing L BKA earlier today. She has a chronic, non-healing ulcer of the L heel, with underlying osteomyelitis and wound drainage culture positive for MRSA. She underwent stenting of a 100% occluded L SFA by Dr. Vazquez in 01/15/2020. Post-procedure she has been on aspirin and plavix, with a plan to continue these x 1 month and transition to Xarelto after that. See clinic notes for full detail regarding pre-operative work-up and operative discussion. Her POA is her nephew for financial matters, but her sister Eliud Irizarry makes her medical decisions as the patient suffers from significant dementia. There were no complications during surgery today. Tourniquet was place as a precaution but not inflated during the procedure. I spoke with Dr. Vazquez pre-operatively, who reviewed her angiogram with me to demonstrate the level of her stent. His recommendation was to wait 3 weeks post-stenting to proceed with BKA, as the stent will typically take that long to endothelialize. I did not stop her aspirin/plavix before the procedure today. She was on oral doxycycline prior to surgery, and IV ancef/vancomycin were added at the time of surgery. EBL was approximately 100cc. Hospital Course Hospital Course: Post-operatively the patient's stay was uncomplicated and no major medical issues arose. Her potassium was low, which was treated first with oral, then IV potassium chloride. Dressings were changed on POD #3. She was followed by Dr. Delgado throughout her admission and deemed medically appropriate for discharge on 02/09/20. continue wound care at SNF: xeroform, betadine-moistened gauze/dry gauze, ABD, kerlix, SAMIR + EdemaWear wrap -- continue antibiotics until final cultures received and CRP normalizes; will d/c on Bactrim -- continue baseline ASA/plavix follow-up with Dr. Campoverde in 1 week Objective Vital signs: Temp Pulse Resp BP Pulse Ox 99.2 F 74 17 145/83 H 100 02/09/20 11:29 02/09/20 11:29 02/09/20 11:29 02/09/20 11:29 02/09/20 11:29 no acute distress, average body habitus - *Routine HEENT Exam Head: Present: normocephalic Eye: Present: EOMI ENT: Present: mucous membranes moist - *Routine Respiratory Exam Absent: accessory muscle use, respiratory distress, wheezes - *Routine Cardiovascular Exam Present: RRR - *Routine Abdominal Exam Present: soft. Absent: distended - *Routine Extremities Exam Comments: R AKA well-healed L BKA surgical dressings/splint removed deep layers of dressing with moderate drainage, moist skin intact with some blistering around incision, serous drainage; sutures intact L BKA no periwound erythema L BKA, no active drainage L BKA stump diffusely tender to touch, no knee ROM tolerated - *Routine Skin Exam Present: warm - *Routine Neurological Exam Present: alert, altered mental status, moving all extremities, normal tone, hearing grossly intact, normal speech. Absent: oriented X3, sensory deficit, motor deficit Results Labs on day of discharge: Labs from last 24 hours 02/09/20 02/09/20 02/09/20 12:11 06:25 06:25 WBC 11.2 H RBC 3.57 L Hgb 9.1 L Hct 29.7 L MCV 83.4 MCH 25.4 L MCHC 30.5 L RDW 17.4 Plt Count 196 MPV 8.0 Neut % (Auto) 73.5 Lymph % (Auto) 15.3 [place] % (Auto) 5.8 Eos % (Auto) 4.9 Baso % (Auto) 0.5 Neut # (Auto) 8.2 H Lymph # (Auto) 1.7 [place] # (Auto) 0.7 Eos # (Auto) 0.6 H Baso # (Auto) 0.1 Sodium 140 Potassium 2.8 L* D Chloride 106 Carbon Dioxide 31 H Anion Gap 5.8 BUN 4 L Creatinine 0.50 L Estimated Creat Clear 43 Estimated GFR 121 Est GFR ( Amer) 146 Glucose 57 L D POC Glucose 88 Calcium 8.5 C-Reactive Protein 45.6 H D 02/09/20 02/08/20 02/08/20 05:11 21:13 16:52 WBC RBC Hgb Hct MCV
--- NOTE | 2020-02-09 15:06 | PC.NURSE ---
Pt denies shortness of breath/pain at this time. She has severely confused all day. Use of profanity is almost constant. Report called to Evie at [facility], awaiting ambulance transport for pt discharge to [facility] this afternoon.
== END 2020-02-09 15:30 | DRG 616 ==
LOC: 2ND 16:27
PROVIDERS: Family Medicine; Admitting Provider Orthopaedic Surgery; PCP Family Medicine; Visit Provider Orthopaedic Surgery
PROC: (CPT 27880; principal; 2020-02-05 11:15)
DX: E11.621 Type 2 diabetes mellitus with foot ulcer (principal); L89.624 Pressure ulcer of left heel, stage 4; M86.172 Other acute osteomyelitis, left ankle and foot; L97.424 Non-pressure chronic ulcer of left heel and midfoot with necrosis of bone; E11.42 Type 2 diabetes mellitus with diabetic polyneuropathy; Z88.5 Allergy status to narcotic agent; I11.9 Hypertensive heart disease without heart failure; I25.10 Atherosclerotic heart disease of native coronary artery without angina pectoris; I77.1 Stricture of artery; E11.51 Type 2 diabetes mellitus with diabetic peripheral angiopathy without gangrene; I70.292 Other atherosclerosis of native arteries of extremities, left leg; Z79.4 Long term (current) use of insulin; Z87.891 Personal history of nicotine dependence; Z89.511 Acquired absence of right leg below knee; E11.69 Type 2 diabetes mellitus with other specified complication
CPT/HCPCS: 27880; 36415; 80048; 80202; 81001; 82962; 85025; 85651; 86140; 86850; 87070; 87075; 87086; 87205; 87507; 88307; 88311; 96374; 97162; J3370

== ENCOUNTER → 2020-03-11 09:00 | Outpatient (CLI) | payer MEDICARE, MEDICAID, SELFPAY ==
--- NOTE | 2020-03-11 09:05 | XR_ITS ---
PROCEDURE: XR TIBIA FIBULA LT 2V CLINICAL INDICATION: Left BKA COMPARISON: TIBIALT XR tibia fibula LT 2V from 12/30/2018 FINDINGS: The below knee amputation is noted at approximately the proximal 3rd of the tibia and fibula. The surgical stumps of the tibia and fibula are clean and well-defined with no abnormal periosteal reaction. The soft tissues of the surgical site appear normal. Minor degenerate changes of the knee are noted with spurring of the tibial spines and mild narrowing of the patellofemoral space. There is moderate arthrosclerotic calcification of the popliteal artery. IMPRESSION: Satisfactory appearance below-knee amputation as noted Dictated by: Dr. Cm Dillon MD 03/11/2020 09:[address] Cm Dillon MD in [place] 03/11/2020 09:23
== END ==
PROVIDERS: PCP Family Medicine; Visit Provider Orthopaedic Surgery
DX: Z89.512 Acquired absence of left leg below knee (principal)
CPT/HCPCS: 73590

== ENCOUNTER → 2020-10-21 17:22 | Outpatient (CLI) | payer MEDICARE, MEDICAID, SELFPAY ==
[2020-10-21 17:26] LABS: Microscopic, Urine URINE MICROSCOPIC (MICROSCOPIC)
[2020-10-21 17:40] LABS: Appearance,Urine TURBID (Clear); Bilirubin,Urine Negative (Negative); Blood, Urine 3+ (Negative); Color,Urine DK YELLOW (Yellow); Glucose,Urine (UA) Negative (Negative); Ketones,Urine Negative (Negative); Leukocyte Esterase,Urine 2+ (Negative); Nitrate,Urine Negative (Negative); PH,Urine 5.5 (5.0-8.5); Protein,Urine TRACE (Negative); Specific Gravity, Urine 1.025 (1.005-1.030); Urobilinogen,Urine 0.2 EU/dl (0.2)
[2020-10-21 17:48] LABS: Amorphous Sediment,Urine 2+ /lpf; RBC,Urine TNTC #/hpf (0-3)
== END ==
PROVIDERS: Visit Provider Family Medicine
DX: N39.0 Urinary tract infection, site not specified (principal); B96.20 Unspecified Escherichia coli [E. coli] as the cause of diseases classified elsewhere
CPT/HCPCS: 81001; 87086; 87088; 87186

== ENCOUNTER → 2021-03-03 17:26 | Outpatient (CLI) | payer MEDICARE, MEDICAID, SELFPAY ==
[2021-03-03 17:48] LABS: Microscopic, Urine URINE MICROSCOPIC (MICROSCOPIC)
[2021-03-03 18:06] LABS: Appearance,Urine SL CLOUDY (Clear); Bilirubin,Urine Negative (Negative); Blood, Urine 3+ (Negative); Color,Urine YELLOW (Yellow); Glucose,Urine (UA) Negative (Negative); Ketones,Urine Negative (Negative); Leukocyte Esterase,Urine 2+ (Negative); Nitrate,Urine POSITIVE (Negative); PH,Urine 5.5 (5.0-8.5); Protein,Urine 1+ (Negative)
[2021-03-03 18:07] LABS: WBC,Urine 20-50 #/hpf (0-3)
[2021-03-03 18:08] LABS: Bacteria,Urine 4+ /lpf; Mucus,Urine 2+ /lpf
== END ==
PROVIDERS: Visit Provider Family Medicine
DX: N39.0 Urinary tract infection, site not specified (principal); B96.20 Unspecified Escherichia coli [E. coli] as the cause of diseases classified elsewhere
CPT/HCPCS: 81001; 87086; 87088; 87186

== ENCOUNTER → 2021-03-21 11:24 | Outpatient (CLI) | payer MEDICARE, MEDICAID, SELFPAY ==
[2021-03-21 14:24] LABS: Chloride 105 mmol/L (98-107); Sodium 141 mmol/L (136-145)
[2021-03-21 14:25] LABS: Potassium 3.6 mmoL/L (3.5-5.1)
[2021-03-21 14:27] LABS: Blood Urea Nitrogen 15 mg/dl (7-17); Estimated Glomerular Filt Rate 120 ml/min (>60); GFR (African American) 146 ML/MIN (>60)
[2021-03-21 14:28] LABS: Anion Gap 11.6 mEq/L (5-15); Calcium 8.9 mg/dl (8.4-10.2); Carbon Dioxide 28 mmol/L (22.0-30.0); Glucose 65 mg/dl (74-100)
== END ==
PROVIDERS: Visit Provider Family Medicine
DX: E11.9 Type 2 diabetes mellitus without complications (principal); E46 Unspecified protein-calorie malnutrition
CPT/HCPCS: 80048

== ENCOUNTER 2021-06-24 19:16 | Observation (INO) | payer MEDICARE, MEDICAID, SELFPAY ==
[2021-06-24 19:17] VITALS: BP 128/77; PULSE 100; RESP 18; TEMP 37.6; O2SAT 98; BMI 48.8
--- NOTE | 2021-06-24 19:21 | CT_ITS ---
PROCEDURE INFORMATION: Exam: CT Head Without Contrast Exam date and time: 06/24/2021 7:21 PM Age: 75 years old Clinical indication: Altered mental status/memory loss; Confusion or disorientation; Additional info: AMS TECHNIQUE: Imaging protocol: Computed tomography of the head without contrast. Radiation optimization: All CT scans at this facility use at least one of these dose optimization techniques: automated exposure control; mA and/or kV adjustment per patient size (includes targeted exams where dose is matched to clinical indication); or iterative reconstruction. COMPARISON: No relevant prior studies available. FINDINGS: Brain: No hemorrhage, mass effect or midline shift. Age-related atrophy and chronic white matter ischemic changes, with no evidence of an acute intracranial abnormality. Cerebral ventricles: The ventricular system demonstrates mild diffuse compensatory enlargement. Paranasal sinuses: Visualized sinuses are unremarkable. No fluid levels. Mastoid air cells: Visualized mastoid air cells are well aerated. Orbital cavity: Postoperative changes of both eyes present. Vasculature: The vasculature demonstrates diffuse moderate atherosclerotic calcification. Bones/joints: No acute fracture. Soft tissues: No acute changes IMPRESSION: 1. No hemorrhage, mass effect or midline shift. 2. Age-related atrophy and chronic white matter ischemic changes, with no evidence of an acute intracranial abnormality. 3. The ventricular system demonstrates mild diffuse compensatory enlargement.
--- NOTE | 2021-06-24 19:21 | XR_ITS ---
PROCEDURE INFORMATION: Exam: XR Chest Exam date and time: 06/24/2021 7:21 PM Age: 75 years old Clinical indication: Other: AMS; Additional info: AMS, infectious workup TECHNIQUE: Imaging protocol: XR of the chest. Views: 1 view. COMPARISON: CR [id number] XR chest portable 12/30/2018 5:38 PM FINDINGS: Lungs: Atelectatic changes noted within both lung bases. Pleural spaces: There is no evidence of pneumothorax. There are no pleural effusions present. Heart/Mediastinum: Unremarkable. No cardiomegaly. Bones/joints: The thoracic spine demonstrates mild degenerative changes at multiple levels. Soft tissues: Surgical clips noted within the right axilla. IMPRESSION: Atelectatic changes noted within both lung bases.
--- NOTE | 2021-06-24 19:24 | HMH.EDGENADL ---
ED Disposition Condition on Discharge: Good - Critical Care Critical Care Time: No <Mike Escobar - Last Filed: 06/24/21 20:20> <Javad Pisano - Last Filed: 06/24/21 22:41> Clinical Impression: SIRS (systemic inflammatory response syndrome) Altered mental status Qualifiers: Altered mental status type: unspecified Qualified Code(s): R41.82 - Altered mental status, unspecified UTI (urinary tract infection) Qualifiers: Urinary tract infection type: site unspecified Hematuria presence: without hematuria Qualified Code(s): N39.0 - Urinary tract infection, site not specified Diabetes mellitus Qualifiers: Diabetes mellitus type: type 1 Diabetes mellitus complication status: with other specified complication Qualified Code(s): E10.69 - Type 1 diabetes mellitus with other specified complication Disposition: Admitted as Observation Attestation: On 06/24/21, the high probability of a clinically significant, sudden or life threatening deterioration of the following system(s) required my full and direct attention, intervention and personal management. The time I documented below is in addition to time spent performing reported procedures but includes the following listed in this critical care notation. Medical Decision Making - Medical Records Medical records reviewed: Yes: I reviewed the patient's medical records. - Wesley Inquiry Pt receiving controlled substance: No - Lab Data Result diagrams: 06/24/21 19:45 <leolaMike fisher - Last Filed: 06/24/21 20:20> - Lab Data Lab results reviewed: Yes: I reviewed the patient's lab results. Result diagrams: 06/24/21 19:45 06/24/21 20:51 - Radiology Data #1 Image(s): Chest Image Reviewed: Yes I have reviewed radiologist's interpretation Preliminary Findings: Abnormal - CT Data CT Scan: Head Time Received: 22:[address] Reviewed: Yes: I have viewed the radiologist's interpretation Preliminary Findings: Abnormal <Javad Pisano - Last Filed: 06/24/21 22:41> Vital Signs: 06/24/21 19:17 Temperature 99.6 F Temperature Source Rectal Pulse Rate [Left Radial] 100 H Respiratory Rate 18 Blood Pressure [Right Arm] 128/77 Blood Pressure Mean [Right Arm] 94 Blood Pressure Source [Right Arm] Automatic Cuff Blood Pressure Position [Right Arm] Supine 02 Sat by Pulse Oximetry 98 Oxygen Delivery Method Room Air - Lab Data Lab Results 06/24/21 19:45: WBC 14.7 H, RBC 5.73 H, Hgb 15.4, Hct 50.1 H, MCV 87.5, MCH 26.8 L, MCHC 30.7 L, RDW 16.4, Plt Count 269, MPV 8.9, Neut % (Auto) 78.8, Lymph % (Auto) 14.2, [place] % (Auto) 4.4, Eos % (Auto) 2.0, Baso % (Auto) 0.5, Neut # (Auto) 11.6 H, Lymph # (Auto) 2.1, [place] # (Auto) 0.7, Eos # (Auto) 0.3, Baso # (Auto) 0.1 06/24/21 19:45: ESR 21 06/24/21 19:45: Procalcitonin 0.058 06/24/21 20:31: Urine Color Yellow, Urine Appearance Cloudy, Urine pH 6.0, Ur Specific [place] 1.025, Urine Protein 2+, Urine Glucose (UA) Negative, Urine Ketones Trace, Urine Blood 3+, Urine Nitrate Negative, Urine Bilirubin Negative, Urine Urobilinogen 1.0, Ur Leukocyte Esterase 2+ A, Urine RBC 20-50, Urine WBC Tntc 06/24/21 20:51: Sodium 156 H*, Potassium 3.5, Chloride 115 H, Carbon Dioxide 31 H, Anion Gap 13.5, BUN 37 H, Creatinine 0.90, Estimated Creat Clear 14, Estimated GFR 61, Est GFR ( Amer) 74, Glucose 203 H, Calcium 9.4, Total Bilirubin 0.6, AST 48 H, ALT 28, Alkaline Phosphatase 154 H, C-Reactive Protein 2.2, Total Protein 8.2, Albumin 3.8, Globulin 4.4 H, Albumin/Globulin Ratio 0.9 L 06/24/21 20:51: SARS-CoV-2 (PCR) Not detected, Influenza A Untype (PCR) Not detected, Influenza Type B (PCR) Not detected 06/24/21 20:51: Lactate 1.6 Orders (Tests/Meds): ED MEDICATIONS Generic Name Dose Route Start Last Admin Trade Name Freq PRN Reason Stop Dose Admin Sodium Chloride 1,000 mls @ 999 mls/hr 06/24/21 20:45 06/24/21 20:54 Sod Chlor 0.9% 1000ml Bag IV 06/24/21 21:45 999 mls/hr .Q1H1M ADRIANE Administration Ceftriaxone Sodium
[2021-06-24 19:30] VITALS: BP 153/87; PULSE 98; O2SAT 98
[2021-06-24 19:52] LABS: Basophils # 0.1 K/mm3 (0-0.2); Basophils % 0.5 % (0.1-2.0); Eosinophils # 0.3 K/mm3 (0.0-0.4); Hematocrit 50.1 % (37.0-47.0); Hemoglobin 15.4 g/dL (12.2-16.2); Lymphocytes # 2.1 K/mm3 (0.7-4.5); Lymphocytes % 14.2 % (10-50); Mean Corpuscular HGB Conc 30.7 g/dL (31.8-35.4); Mean Corpuscular Hemoglobin 26.8 pg (27.0-31.2); Mean Corpuscular Volume 87.5 fl (81-99); Mean Platelet Volume 8.9 fl (7.4-10.4); Monocytes # 0.7 K/mm3 (0.1-1.0); Monocytes % 4.4 % (1.7-9.3); Neutrophils # 11.6 K/mm3 (1.8-7.8); Neutrophils % 78.8 % (37.0-80.0); Platelet Count 269 K/mm3 (142-424); Red Blood Count 5.73 M/mm3 (4.20-5.40); Red Cell Distribution Width 16.4 % (11.5-17.5); White Blood Count 14.7 K/mm3 (4.8-10.8)
--- NOTE | 2021-06-24 20:30 | PC.NURSE ---
PT IS A 75 YO B F WHO PRESENTS FROM THE NURSING WITH MO NURSE COMPLAINTS OF WORSENING OF MENTAL STATUS . UPON ARRIVAL PT IS FOUND TO BE WELL-KNOWN TO STAFF, AND AT MENTATION BASELINE. PT IS A & O TO SELF AND PLACE ( HOSPITAL ), AND UNAWARE OF WHY SHE IS HERE. LUNGS ARE CLEAR,BUT DIMINISHED BILATERALLY. SKIN TURGOR WNL. NO SIGNS OF CYANOSIS NOTED. PT ABD SOFT, NT/ND. BS +X4. CEE CATH PLACED FOR ACCURATE I&O PER PHYSICIAN ORDER. YELLOW URINE DRAINING. PT T&R Q2H FOR COMFORT AND TO PREVENT SKIN BREAKDOWN. NOTED SMALL STOOL DURING ASSESSMENT. 22G IV SL TO RIGHT ANTERIOR HAND, NO S/SX OF INFILTRATION/INFECTION. PT VOCALLY VULGAR WITH HER SPEECH ACCUSING STAFF OF BEING WHOREMONGERS AND HOES . ATTEMPTS TO REDIRECT PATIENT ARE UNSUCCESSFUL. WILL BE ADMITTED AND A BEDHOLD IN ED FOR DURATION OF THIS SHIFT. WILL CONTINUE TO M ONITOR. VSS. VS CHANGED TO Q4H PER FLOOR PROTOCOL.
[2021-06-24 20:42] LABS: Microscopic, Urine URINE MICROSCOPIC (MICROSCOPIC)
[2021-06-24 20:48] LABS: Appearance,Urine CLOUDY (Clear); Blood, Urine 3+ (Negative); Color,Urine YELLOW (Yellow); Glucose,Urine (UA) Negative (Negative); Ketones,Urine TRACE (Negative); Leukocyte Esterase,Urine 2+ (Negative); Nitrate,Urine Negative (Negative); Protein,Urine 2+ (Negative); Specific Gravity, Urine 1.025 (1.005-1.030)
[2021-06-24 20:55] LABS: Bilirubin,Urine Negative (Negative)
[2021-06-24 21:15] LABS: RBC,Urine 20-50 #/hpf (0-3); WBC,Urine TNTC #/hpf (0-3)
[2021-06-24 21:24] LABS: Erythrocyte Sedimentation Rate 21 mm/hr (0-30)
[2021-06-24 21:25] LABS: Procalcitonin 0.058 ng/mL (0.0-2.0)
--- NOTE | 2021-06-24 21:25 | PC.NURSE ---
Pt laying in bed, repositioned and cleaned up
[2021-06-24 21:30] VITALS: BP 186/87; PULSE 90; O2SAT 100
[2021-06-24 21:38] LABS: Alanine Aminotransferase 28 U/L (12-78); Albumin Level 3.8 g/dl (3.5-5.0); Albumin/Globulin Ratio 0.9 (1.1-1.8); Alkaline Phosphatase 154 U/L (38-126); Anion Gap 13.5 mEq/L (5-15); Aspartate Amino Transferase 48 U/L (14-36); Bilirubin,Total 0.6 mg/dl (0.2-1.3); Blood Urea Nitrogen 37 mg/dl (7-17); Calcium 9.4 mg/dl (8.4-10.2); Carbon Dioxide 31 mmol/L (22.0-30.0); Chloride 115 mmol/L (98-107); Creatinine Clearance Estimated 14 mL/min (50-200); Estimated Glomerular Filt Rate 61 ml/min (>60); GFR (African American) 74 ML/MIN (>60); Globulin 4.4 g/dL (1.3-3.2); Glucose 203 mg/dl (74-100); Potassium 3.5 mmoL/L (3.5-5.1); Total Protein,Serum 8.2 g/dl (6.3-8.2)
[2021-06-24 21:43] LABS: Sodium 156 mmol/L (136-145)
[2021-06-24 21:44] LABS: C-Reactive Protein 2.2 mg/L (0-4)
[2021-06-24 21:45] LABS: Coronavirus 19, PCR Not Detected (NotDetected); Influenza A, PCR Not Detected (NotDetected); Influenza B, PCR Not Detected (NotDetected)
[2021-06-24 21:49] LABS: Lactic Acid 1.6 mmol/L (0.7-2.1)
[2021-06-24 22:00] VITALS: BP 194/90; PULSE 61; O2SAT 100
--- NOTE | 2021-06-24 22:30 | PC.NURSE ---
Pt asleep in bed
[2021-06-24 22:31] VITALS: BP 167/86; PULSE 64; O2SAT 100
--- NOTE | 2021-06-24 23:02 | PC.NURSE ---
[facility] nurse Rebekah notified of admit
[2021-06-24 23:31] VITALS: BP 194/91; PULSE 90; O2SAT 98
[2021-06-25] VITALS (21 sets, daily range): BP systolic 137–196; BP diastolic 62–105; PULSE 70–101; RESP 16; TEMP 37.6; O2SAT 97–100
--- NOTE | 2021-06-25 00:15 | PC.NURSE ---
Pt is laying in bed currently asleep
--- NOTE | 2021-06-25 01:05 | PC.NURSE ---
Pt repositioned in bed pt resting
--- NOTE | 2021-06-25 02:20 | PC.NURSE ---
Pt is laying in bed, no needs at this time
--- NOTE | 2021-06-25 03:26 | PC.NURSE ---
Pt laying in bed. pt cleaned up and repositioned in bed. pt laying on right side.
--- NOTE | 2021-06-25 04:01 | PC.NURSE ---
Pt turned on left side, and pulled up in bed
--- NOTE | 2021-06-25 05:31 | PC.NURSE ---
pt asleep in bed
--- NOTE | 2021-06-25 06:04 | PC.NURSE ---
lab at bedside to draw morning blood draw. pt alert, verbally responsive to venipuncture.
--- NOTE | 2021-06-25 07:10 | PC.NURSE ---
report given to asia ruelas
[2021-06-25 08:17] LABS: Basophils # 0.1 K/mm3 (0-0.2); Basophils % 0.4 % (0.1-2.0); Eosinophils # 0.2 K/mm3 (0.0-0.4); Eosinophils % 1.6 % (0.1-12.0); Hematocrit 47.9 % (37.0-47.0); Hemoglobin 14.6 g/dL (12.2-16.2); Lymphocytes # 1.9 K/mm3 (0.7-4.5); Lymphocytes % 12.2 % (10-50); Mean Corpuscular HGB Conc 30.4 g/dL (31.8-35.4); Mean Corpuscular Hemoglobin 26.9 pg (27.0-31.2); Mean Corpuscular Volume 88.6 fl (81-99); Mean Platelet Volume 8.6 fl (7.4-10.4); Monocytes # 0.7 K/mm3 (0.1-1.0); Monocytes % 4.3 % (1.7-9.3); Neutrophils # 12.4 K/mm3 (1.8-7.8); Neutrophils % 81.5 % (37.0-80.0); Platelet Count 240 K/mm3 (142-424); Red Blood Count 5.41 M/mm3 (4.20-5.40); Red Cell Distribution Width 16.4 % (11.5-17.5); White Blood Count 15.2 K/mm3 (4.8-10.8)
[2021-06-25 08:19] LABS: MANUAL DIFFERENTIAL MANUAL DIFFERENTIAL (MANUAL DIFF)
--- NOTE | 2021-06-25 08:24 | HMH.HPDC ---
General - General Admission date:: 06/24/21 Discharge date: 06/25/21 *Admission Date: 06/24/21 *Chief complaint: Mental status change *History of present illness: 75-year-old female presented [facility] emergency department [facility] with changes in mental status. She has baseline dementia. Patient was found to have urinary tract infection, signs of dehydration, and hyponatremia. [facility] History I have reviewed the patient's past medical history: Yes Medical History: Reports:: Atherosclerotic Heart Disease, Coronary Artery Disease, Cerebrovascular Accident, Diabetes Mellitus Type 2, Hypertension, Peripheral Artery Disease, Peripheral Vascular Disease, Urinary Tract Infection Denies:: Cancer, Diabetes Mellitus Type 1, Internal Pacemaker, MRSA, Seizures *Have you ever received a pneumonia vaccine?: No (unknown) *Have you received a flu vaccine this season?: No (unknown) Other Medical History: Denies: Blood Transfusion Reaction Laterality Cases: Right: Lumpectomy, Bilateral: Other Other Surgeries: Yes: Angiogram, Cardiac Catheterization, Other. No: Pacemaker Amputation: Yes (Right AKA) Fractures: No - *Social History Smoking Status: Former smoker Tobacco Type: cigarettes # Packs/Day (cigarettes): 0 Alcohol Intake: never Alcohol Intake Frequency:: other Substance Use Type: denies use *Occupational Status:: disabled Housing: prison Household Members: caregiver, other *Travel in the last 8 weeks: None Family Hx:: Unable to obtain Review of Systems - Review of Systems Review of systems:: unable to obtain - *Neurologic Reports weakness, Denies headache(s), Denies seizure-like activity Exam Vital signs and Labs for Last 24 Hours: Temp Pulse Resp BP Pulse Ox 99.6 F 99 H 18 161/79 H 98 06/24/21 19:17 06/25/21 04:00 06/24/21 19:17 06/25/21 04:00 06/25/21 04:00 Laboratory Results - last 24 hr 06/24/21 19:45: WBC 14.7 H, RBC 5.73 H, Hgb 15.4, Hct 50.1 H, MCV 87.5, MCH 26.8 L, MCHC 30.7 L, RDW 16.4, Plt Count 269, MPV 8.9, Neut % (Auto) 78.8, Lymph % (Auto) 14.2, [place] % (Auto) 4.4, Eos % (Auto) 2.0, Baso % (Auto) 0.5, Neut # (Auto) 11.6 H, Lymph # (Auto) 2.1, [place] # (Auto) 0.7, Eos # (Auto) 0.3, Baso # (Auto) 0.1 06/24/21 19:45: ESR 21 06/24/21 19:45: Procalcitonin 0.058 06/24/21 20:31: Urine Color Yellow, Urine Appearance Cloudy, Urine pH 6.0, Ur Specific [place] 1.025, Urine Protein 2+, Urine Glucose (UA) Negative, Urine Ketones Trace, Urine Blood 3+, Urine Nitrate Negative, Urine Bilirubin Negative, Urine Urobilinogen 1.0, Ur Leukocyte Esterase 2+ A, Urine RBC 20-50, Urine WBC Tntc 06/24/21 20:51: Sodium 156 H*, Potassium 3.5, Chloride 115 H, Carbon Dioxide 31 H, Anion Gap 13.5, BUN 37 H, Creatinine 0.90, Estimated Creat Clear 14, Estimated GFR 61, Est GFR ( Amer) 74, Glucose 203 H, Calcium 9.4, Total Bilirubin 0.6, AST 48 H, ALT 28, Alkaline Phosphatase 154 H, C-Reactive Protein 2.2, Total Protein 8.2, Albumin 3.8, Globulin 4.4 H, Albumin/Globulin Ratio 0.9 L 06/24/21 20:51: SARS-CoV-2 (PCR) Not detected, Influenza A Untype (PCR) Not detected, Influenza Type B (PCR) Not detected 06/24/21 20:51: Lactate 1.6 06/25/21 08:00: WBC 15.2 H, RBC 5.41 H, Hgb 14.6, Hct 47.9 H, MCV 88.6, MCH 26.9 L, MCHC 30.4 L, RDW 16.4, Plt Count 240, MPV 8.6, Neut % (Auto) 81.5 H, Lymph % (Auto) 12.2, [place] % (Auto) 4.3, Eos % (Auto) 1.6, Baso % (Auto) 0.4, Neut # (Auto) 12.4 H, Lymph # (Auto) 1.9, [place] # (Auto) 0.7, Eos # (Auto) 0.2, Baso # (Auto) 0.1 I & O for Last 24 hours: Intake & Output 06/22/21 06/23/21 06/24/21 06/25/21 11:59 11:59 11:59 11:59 Weight 160 lb Microbiology Reports for the Last 24 Hours: Microbiology 06/24/21 20:31 Urine,Catheterized Urine Culture - Preliminary - Constitutional no acute distress, chronically ill appearing, disheveled - *Routine HEENT Exam Head: Present: normocephalic Eye: Present: EOMI, PERRL ENT: Present: mucous membranes dry - *Routine Neck Exam Pres
[2021-06-25 08:26] LABS: Anion Gap 15.3 mEq/L (5-15); Blood Urea Nitrogen 29 mg/dl (7-17); Calcium 8.9 mg/dl (8.4-10.2); Carbon Dioxide 28 mmol/L (22.0-30.0); Chloride 118 mmol/L (98-107); Creatinine Clearance Estimated 14 mL/min (50-200); Estimated Glomerular Filt Rate 82 ml/min (>60); GFR (African American) 99 ML/MIN (>60); Glucose 206 mg/dl (74-100); Potassium 3.3 mmoL/L (3.5-5.1)
[2021-06-25 08:28] LABS: Sodium 158 mmol/L (136-145)
--- NOTE | 2021-06-25 08:28 | PC.NURSE ---
lab called critical to kenneth
[2021-06-25 09:00] LABS: Lymphocytes % 16 % (10-50); Monocytes % 6 % (2-9); Neutrophils % 78 % (42-76); Total Cells Counted 100
[2021-06-25 09:01] LABS: Platelet Estimate Normal; RBC Morphology Normal
== END 2021-06-25 10:02 ==
LOC: ER 21:39 → 2ND 22:04
PROVIDERS: Emergency Medicine; Admitting Provider Family Medicine; Emergency Provider Student in an Organized Health Care Education/Training Program; PCP Family Medicine; Visit Provider Family Medicine
DX: N39.0 Urinary tract infection, site not specified (principal); Z20.822 Contact with and (suspected) exposure to COVID-19; E86.0 Dehydration; I25.10 Atherosclerotic heart disease of native coronary artery without angina pectoris; E11.9 Type 2 diabetes mellitus without complications; Z79.4 Long term (current) use of insulin; E87.0 Hyperosmolality and hypernatremia; Z79.01 Long term (current) use of anticoagulants; Z79.899 Other long term (current) drug therapy
CPT/HCPCS: G0378; 36415; 70450; 71045; 80048; 80053; 81001; 83605; 84145; 85007; 85025; 85651; 86140; 87040; 87086; 87088; 87186; 96366; 96374; 99284; C9803; U0003; U0005

== ENCOUNTER → 2021-06-29 07:58 | Outpatient (REF) | payer MEDICARE, MEDICAID, SELFPAY ==
[2021-06-29 08:50] LABS: Chloride 119 mmol/L (98-107)
[2021-06-29 08:53] LABS: Anion Gap 10.9 mEq/L (5-15); Blood Urea Nitrogen 16 mg/dl (7-17); Carbon Dioxide 30 mmol/L (22.0-30.0); Estimated Glomerular Filt Rate 120 ml/min (>60); GFR (African American) 146 ML/MIN (>60); Glucose 116 mg/dl (74-100)
[2021-06-29 09:06] LABS: Potassium 2.9 mmoL/L (3.5-5.1); Sodium 157 mmol/L (136-145)
== END ==
PROVIDERS: Visit Provider Family Medicine
DX: E87.6 Hypokalemia (principal)
CPT/HCPCS: 80048

== ENCOUNTER 2022-01-29 09:43 | Emergency (ER) | payer MEDICARE, MEDICAID, SELFPAY ==
[2022-01-29 09:44] VITALS: BP 180/87; PULSE 86; RESP 18; TEMP 36.7; O2SAT 98; BMI 33.5
--- NOTE | 2022-01-29 09:49 | CT_ITS ---
FINAL REPORT CLINICAL HISTORY: trauma COMPARISON: June 24, 2021 FINDINGS: Axial images of the head were obtained without contrast. Coronal reformatted images were also obtained. This study was performed with techniques to keep radiation doses as low as reasonably achievable (ALARA). Individualized dose reduction techniques using automated exposure control or adjustment of mA and/or kV according to the patient's size were employed. There is generalized age-appropriate atrophy. Periventricular low-attenuation areas are seen consistent with moderate chronic ischemic changes. There is no evidence of intracranial hemorrhage or mass. There is no evidence of acute infarct. There is no evidence of shift of the midline structures. No skull abnormality is seen on the bone window images. There is a right occipital scalp hematoma. IMPRESSION: Atrophy and moderate periventricular chronic ischemic changes. No acute intracranial abnormality identified. Reviewed, Interpreted and Dictated by Alfredito Taylor III, MD Transcribed by Jose Cain Authenticated by Alfredito Taylor III, MD on 01/29/2022 10:44:[address] [facility]
--- NOTE | 2022-01-29 09:49 | CT_ITS ---
FINAL REPORT CLINICAL HISTORY: trauma- fall at intermediate COMPARISON: September 04, 2018 FINDINGS: Axial CT images of the cervical spine were obtained without contrast. Sagittal and coronal reformatted images were also obtained. This study was performed with techniques to keep radiation doses as low as reasonably achievable (ALARA). Individualized dose reduction techniques using automated exposure control or adjustment of mA and/or kV according to the patient's size were employed. There is no evidence of fracture or dislocation. The bony alignment is normal. There are moderate to severe degenerative change with multilevel disc space narrowing and osteophyte formation. There is multilevel neural foraminal narrowing. There is mild central canal stenosis at C3-C4 and C4-C5. No paraspinous soft tissue abnormality is seen. Limited images of the upper thorax are unremarkable. IMPRESSION: No fracture or acute bony abnormality identified. Moderate to severe degenerative disc disease. Reviewed, Interpreted and Dictated by Alfredito Taylor III, MD Transcribed by Jose Cain Authenticated by Alfredito Taylor III, MD on 01/29/2022 10:44:[address] [facility]
--- NOTE | 2022-01-29 10:01 | PC.NURSE ---
Pt to CT
--- NOTE | 2022-01-29 10:23 | HMH.EDFALL ---
ED Disposition Clinical Impression: Concussion without loss of consciousness Qualifiers: Encounter type: initial encounter Qualified Code(s): S06.0X0A - Concussion without loss of consciousness, initial encounter Disposition: Home, Self-Care Condition on Discharge: Good Instructions: How to Prevent Falls Referrals: Bay Daniels MD [Primary Care Provider] - - Critical Care Critical Care Time: No Attestation: On 01/29/22, the high probability of a clinically significant, sudden or life threatening deterioration of the following system(s) required my full and direct attention, intervention and personal management. The time I documented below is in addition to time spent performing reported procedures but includes the following listed in this critical care notation. Medical Decision Making - Medical Records Medical records reviewed: Yes: I reviewed the patient's medical records. - Wesley Inquiry Pt receiving controlled substance: No Vital Signs: 01/29/22 09:44 01/29/22 10:30 Temperature 98.1 F Temperature Source Oral Pulse Rate 93 H Pulse Rate [Right Radial] 86 Respiratory Rate 18 Blood Pressure 166/77 H Blood Pressure [Right Arm] 180/87 H Blood Pressure Mean 131 Blood Pressure Mean [Right Arm] 118 Blood Pressure Source [Right Arm] Automatic Cuff Blood Pressure Position [Right Arm] Sitting 02 Sat by Pulse Oximetry 98 100 Oxygen Delivery Method Room Air - CT Data CT Scan: Head, C-Spine Time Received: 10:[address] Reviewed: Yes: I have reviewed the patient's CT results, I have viewed the radiologist's interpretation Findings Narrative: IMPRESSION: Atrophy and moderate periventricular chronic ischemic changes. No acute intracranial abnormality identified. IMPRESSION: No fracture or acute bony abnormality identified. Moderate to severe degenerative disc disease. - Reevaluation(s) Time: 10:49 Reevaluation #1: Patient appears back to baseline. CT imaging was unremarkable. Symptoms consistent with closed head injury. Patient needs follow-up with PCP in 48 hours. care home was notified about this. Given strict return precautions. Verbalized understanding. Medical Decision Narrative: 76-year-old female presented to the emergency department after an accidental fall. Patient is small hematoma on the head. She takes anticoagulation. Patient meets imaging criteria for the head and cervical spine. Work-up initiated. Fall HPI - General Chief Complaint: Fall Stated Complaint: fall Time Seen by Provider: 01/29/22 09:50 Mode of Arrival: EMS Limitations: Physical Limitations Description of Symptoms (Recalled from ER Triage Doc. by RN): care home staff report that pt fell backward while in the diningroom this AM, hitting the back of her head on the floor. Pt presents with knot to back right of head. Pt Denies pain. Staff report that pt is at baseline mental status. - History of Present Illness HPI Narrative: 76-year-old female presented to the emergency department after an accidental fall. Patient was in the dining room this morning having breakfast when she fell backwards in her chair. Patient hit her head on the ground. There is no loss of consciousness. Patient appears to be at her baseline. No new neurologic deficits. She does take anticoagulation. She denies any headache or change in vision. No focal weakness. No chest pain or shortness of breath. Abdominal pain or vomiting. No diarrhea. - Related Data Home Medications Medication Instructions Recorded Confirmed donepezil 10 mg tablet 10 mg PO DAILY 03/03/18 06/25/21 sertraline 50 mg tablet 50 mg PO HS 15 Days #15 tab 12/15/18 06/25/21 Amlodipine Besylate [Norvasc 2.5mg 7.5 mg PO DAILY 12/31/18 06/25/21 tablet] Acetaminophen [Acetaminophen Extra 1,000 mg PO Q6HP PRN 01/08/19 06/25/21 Strength] insulin glargine 100 unit/mL (3 20 unit SQ QHS ml 01/04/20 06/25/21 mL) subcutaneous pen mirtazapi
[2022-01-29 10:30] VITALS: BP 166/77; PULSE 93; O2SAT 100
--- NOTE | 2022-01-29 11:02 | PC.NURSE ---
Notified [facility] that pt is ready for transfer back to [facility]
[2022-01-29 11:30] VITALS: BP 140/71; PULSE 78; RESP 18
[2022-01-29 12:00] VITALS: BP 163/75; PULSE 90
[2022-01-29 13:00] VITALS: BP 135/54; PULSE 86; RESP 18
--- NOTE | 2022-01-29 13:41 | PC.NURSE ---
Attempted to call [facility] to give report since EMS is here for transport of pt back to their facility. Attempted to call facility twice with no answer to the phone.
[2022-01-29 13:43] VITALS: BP 147/70; PULSE 89; RESP 17; TEMP 36.6; O2SAT 98
== END 2022-01-29 13:44 | disposition home or self-care (01) ==
PROVIDERS: Emergency Provider Emergency Medicine; PCP Internal Medicine Adolescent Medicine
DX: S06.0X0A Concussion without loss of consciousness, initial encounter (principal); N39.0 Urinary tract infection, site not specified; I10 Essential (primary) hypertension; I25.10 Atherosclerotic heart disease of native coronary artery without angina pectoris; E11.9 Type 2 diabetes mellitus without complications; M86.9 Osteomyelitis, unspecified; Z95.5 Presence of coronary angioplasty implant and graft; Z87.891 Personal history of nicotine dependence; Z86.73 Personal history of transient ischemic attack (TIA), and cerebral infarction without residual deficits; Z79.4 Long term (current) use of insulin; Z79.82 Long term (current) use of aspirin; Z79.899 Other long term (current) drug therapy; Z79.1 Long term (current) use of non-steroidal anti-inflammatories (NSAID); Z88.5 Allergy status to narcotic agent
CPT/HCPCS: 70450; 72125; 99285

== ENCOUNTER 2022-04-19 10:42 | Inpatient (IN) | payer MEDICARE, MEDICAID, SELFPAY ==
[2022-04-19] VITALS (13 sets, daily range): BP systolic 103–166; BP diastolic 61–95; PULSE 56–122; RESP 17–24; TEMP 36.5–38.2; O2SAT 91–98; BMI 23.0; BMI 20.5
--- NOTE | 2022-04-19 11:14 | XR_ITS ---
FINAL REPORT CLINICAL HISTORY: shortness of breath, AMS COMPARISON: 06/24/2021 FINDINGS: SINGLE-VIEW CHEST The heart size is normal. The mediastinum is normal. There is mild bibasilar atelectasis or scar with partially improved aeration since the previous. There are postoperative changes in the right axilla. There is no pneumothorax. IMPRESSION: Bibasilar atelectasis or scar with partially improved aeration. Reviewed, Interpreted and Dictated by Alfredito Taylor III, MD Transcribed by Ruthy Andrews Authenticated and [facility]
--- NOTE | 2022-04-19 11:35 | PC.NURSE ---
pt's sister (POA) at the bedside with patient. updated on POC
[2022-04-19 11:39] LABS: Coronavirus 19, PCR Not Detected (NotDetected); Influenza A, PCR Not Detected (NotDetected); Influenza B, PCR Not Detected (NotDetected)
--- NOTE | 2022-04-19 11:41 | PC.NURSE ---
portable xr at the bedside
[2022-04-19 11:44] LABS: Basophils # 0.2 K/mm3 (0-0.2); Basophils % 1.1 % (0.1-2.0); Eosinophils # 0.2 K/mm3 (0.0-0.4); Hematocrit 48.9 % (37.0-47.0); Hemoglobin 14.3 g/dL (12.2-16.2); Lymphocytes # 1.2 K/mm3 (0.7-4.5); Lymphocytes % 5.8 % (10-50); Mean Corpuscular HGB Conc 29.2 g/dL (31.8-35.4); Mean Corpuscular Hemoglobin 24.1 pg (27.0-31.2); Mean Corpuscular Volume 82.4 fl (81-99); Mean Platelet Volume 9.8 fl (7.4-10.4); Monocytes # 1.2 K/mm3 (0.1-1.0); Monocytes % 5.8 % (1.7-9.3); Neutrophils # 18.1 K/mm3 (1.8-7.8); Neutrophils % 86.2 % (37.0-80.0); Platelet Count 314 K/mm3 (142-424); Red Blood Count 5.94 M/mm3 (4.20-5.40); Red Cell Distribution Width 19.3 % (11.5-17.5)
--- NOTE | 2022-04-19 11:46 | HMH.EDGENADL ---
ED Disposition Clinical Impression: Acute kidney injury, Dehydration, Hypernatremia, Hyperkalemia, Healthcare-associated pneumonia Sepsis Qualifiers: Sepsis type: sepsis due to unspecified organism Sepsis acute organ dysfunction status: with acute organ dysfunction Severe sepsis acute organ dysfunction type: acute respiratory failure Acute respiratory failure type: with hypoxia Severe sepsis shock status: without septic shock Qualified Code(s): A41.9 - Sepsis, unspecified organism Altered mental status Qualifiers: Altered mental status type: somnolence Qualified Code(s): R40.0 - Somnolence Disposition: Admitted As Inpatient Condition on Discharge: Critical Referrals: Bay Daniels MD [Primary Care Provider] - - Critical Care Critical Care Time: Yes Attestation: On 04/19/22, the high probability of a clinically significant, sudden or life threatening deterioration of the following system(s) required my full and direct attention, intervention and personal management. The time I documented below is in addition to time spent performing reported procedures but includes the following listed in this critical care notation. Total Critical Care Time: 45 Vital system(s) involved:: Metabolic Failure, Respiratory Failure, Renal Failure My critical care processes included: Assessment & monitoring of V/S, Initial and Re-exams, Data Review/Interpretation, Coordinating Care, Medication Orders and management, Documentation Medical Decision Making - Wesley Inquiry Pt receiving controlled substance: No Vital Signs: 04/19/22 11:03 04/19/22 11:05 04/19/22 11:30 Pulse Rate 63 56 L Pulse Rate [Left Radial] 66 Respiratory Rate 18 17 24 Blood Pressure 142/77 H 146/70 H Blood Pressure [Right Arm] 142/77 H Blood Pressure Mean 107 97 Blood Pressure Mean [Right Arm] 98 02 Sat by Pulse Oximetry 97 98 97 Oxygen Delivery Method Nasal Cannula Nasal Cannula Oxygen Flow Rate (LPM) 2 2 04/19/22 12:09 04/19/22 13:01 04/19/22 13:31 Pulse Rate 59 L 58 L 108 H Pulse Rate [Left Radial] Respiratory Rate 20 22 24 Blood Pressure 139/63 146/61 H 139/95 H Blood Pressure [Right Arm] Blood Pressure Mean 69 86 103 Blood Pressure Mean [Right Arm] 02 Sat by Pulse Oximetry 97 96 96 Oxygen Delivery Method Nasal Cannula Nasal Cannula Nasal Cannula Oxygen Flow Rate (LPM) 2 2 2 - Lab Data Lab Results 04/19/22 11:30: WBC 21.0 H*, RBC 5.94 H, Hgb 14.3, Hct 48.9 H, MCV 82.4, MCH 24.1 L, MCHC 29.2 L, RDW 19.3 H, Plt Count 314, MPV 9.8, Neut % (Auto) 86.2 H, Lymph % (Auto) 5.8 L, [place] % (Auto) 5.8, Eos % (Auto) 1.0, Baso % (Auto) 1.1, Neut # (Auto) 18.1 H, Lymph # (Auto) 1.2, [place] # (Auto) 1.2 H, Eos # (Auto) 0.2, Baso # (Auto) 0.2, Total Counted 100, Neutrophils % (Manual) 83 H, Lymphocytes % (Manual) 12, Monocytes % (Manual) 4, Eosinophils % (Manual) 1, Platelet Estimate Normal, Poikilocytosis 1+, Anisocytosis 1+, Target Cells 1+, Ovalocytes 1+, Schistocytes 1+ 04/19/22 11:30: Sodium 166 H*, Potassium 7.2 H*, Chloride 133 H, Carbon Dioxide 27, Anion Gap 13.2, BUN 58 H, Creatinine 1.50 H, Estimated Creat Clear 30, Estimated GFR 34 L, Est GFR ( Amer) 41 L, Glucose 219 H, Calcium 10.0, Total Bilirubin 0.7, AST 56 H, ALT 27, Alkaline Phosphatase 157 H, NT-Pro-B Natriuret Pep 684 H, Total Protein 8.0, Albumin 3.7, Globulin 4.3 H, Albumin/Globulin Ratio 0.9 L 04/19/22 11:30: SARS-CoV-2 (PCR) Not detected, Influenza A Untype (PCR) Not detected, Influenza Type B (PCR) Not detected 04/19/22 11:30: Lactate 1.5 04/19/22 12:19: Specimen Source Left radial, O2 % 2, ABG pH 7.41, ABG pCO2 34.4 L, ABG pO2 67.1 L, ABG HCO3 21.1 L, ABG Total CO2 22.2 L, ABG O2 Saturation 92, ABG Base Excess -3.6 L, Mykel Test Acceptable Result diagrams: 04/19/22 11:30 04/19/22 11:30 Orders (Tests/Meds): ED MEDICATIONS Generic Name Dose Route Start Last Admin Trade Name Freq PRN Reason Stop Dose Admin Dextrose/Sodium Chloride 1,000 mls @ 100 mls/hr
[2022-04-19 11:50] LABS: Alanine Aminotransferase 27 U/L (12-78); Albumin Level 3.7 g/dl (3.5-5.0); Albumin/Globulin Ratio 0.9 (1.1-1.8); Alkaline Phosphatase 157 U/L (38-126); Anion Gap 13.2 mEq/L (5-15); Aspartate Amino Transferase 56 U/L (14-36); Bilirubin,Total 0.7 mg/dl (0.2-1.3); Blood Urea Nitrogen 58 mg/dl (7-17); Carbon Dioxide 27 mmol/L (22.0-30.0); Creatinine Clearance Estimated 30 mL/min (50-200); Estimated Glomerular Filt Rate 34 ml/min (>60); GFR (African American) 41 ML/MIN (>60); Globulin 4.3 g/dL (1.3-3.2)
[2022-04-19 11:51] LABS: Glucose 219 mg/dl (74-100); Lactic Acid 1.5 mmol/L (0.7-2.1)
--- NOTE | 2022-04-19 11:54 | CT_ITS ---
FINAL REPORT CLINICAL HISTORY: [facility] COMPARISON: 01/29/2022 FINDINGS: Axial images of the head were obtained without contrast. Coronal reformatted images were also obtained. This study was performed with techniques to keep radiation doses as low as reasonably achievable (ALARA). Individualized dose reduction techniques using automated exposure control or adjustment of mA and/or kV according to the patient's size were employed. There is generalized age-appropriate atrophy. Periventricular low-attenuation areas are seen consistent with moderate chronic ischemic changes. There is no evidence of intracranial hemorrhage or mass. There is no evidence of acute infarct. There is no evidence of shift of the midline structures. No skull abnormality is seen on the bone window images. IMPRESSION: Atrophy and moderate periventricular chronic ischemic changes. No acute intracranial abnormality identified. Reviewed, Interpreted and Dictated by Alfredito Taylor III, MD Transcribed by Jose Cain Authenticated and [facility]
--- NOTE | 2022-04-19 11:57 | PC.NURSE ---
notified RT of abg order
[2022-04-19 11:59] LABS: MANUAL DIFFERENTIAL MANUAL DIFFERENTIAL (MANUAL DIFF)
[2022-04-19 12:00] LABS: NT Pro Brain Natriuretic Pep. 684 pg/mL (0-450)
[2022-04-19 12:01] LABS: Sodium 166 mmol/L (136-145)
[2022-04-19 12:02] LABS: Chloride 133 mmol/L (98-107); Potassium 7.2 mmoL/L (3.5-5.1)
[2022-04-19 12:09] LABS: Eosinophils % 1 % (0-3); Lymphocytes % 12 % (10-50); Monocytes % 4 % (2-9); Neutrophils % 83 % (42-76); Total Cells Counted 100
[2022-04-19 12:12] LABS: Schistocytes 1+
[2022-04-19 12:13] LABS: Ovalocytes 1+; Platelet Estimate Normal
[2022-04-19 12:14] LABS: Target Cells 1+
[2022-04-19 12:15] LABS: Anisocytosis 1+
[2022-04-19 12:16] LABS: Poikilocytosis 1+
--- NOTE | 2022-04-19 12:19 | PC.NURSE ---
RAVINDER LYNN speaking with Dr. Beltran
--- NOTE | 2022-04-19 12:27 | ECG_ITS ---
APPROVED REPORT Exam: Resting ECG HR:110 bpm ECG Measurements Heart Rate 110 AXES QRSd 93 QRS 56 QT 331 T 252 QTc 396 Conclusion ATRIAL FIBRILLATION WITH RAPID VENTRICULAR RESPONSE LOW QRS VOLTAGE IN PRECORDIAL LEADS [QRS DEFLECTION < 1.0 mV IN CHEST LEADS] ST DEVIATION AND MODERATE T-WAVE ABNORMALITY, CONSIDER LATERAL ISCHEMIA [-0.1+ mV T-WAVE IN I/aVL/V5/V6] ST DEVIATION AND MODERATE T-WAVE ABNORMALITY, CONSIDER INFERIOR ISCHEMIA [-0.1+ mV T-WAVE IN II/aVF] ABNORMAL ECG UNCONFIRMED REPORT Electronically signed by : Bay Daniels MD 04/19/2022 17:38:28
[2022-04-19 12:34] LABS: ABG Base Excess -3.6 mmol/L (-2.4-2.3); ABG HCO3 21.1 mmhg (22.0-26.0); ABG Oxygen Saturation 92 % (90-100); ABG PCO2 34.4 mmhg (35.0-45.0); ABG PH 7.41 mmol/L (7.35-7.45); ABG PO2 67.1 mmhg (80-100); ABG TCO2 22.2 mmhg (23-27); Oxygen 2 %
[2022-04-19 12:35] LABS: Allen's Test ACCEPTABLE; Source Left Radial
--- NOTE | 2022-04-19 12:39 | HMH.PHACONS ---
- Pharmacy Consult Date: 04/19/22 Time: 12:39 Referring provider: DR. KURTZ Reason for Consult:: VANCOMYCIN DOSING Allergies and ADEs:: Allergies Allergy/AdvReac Type Severity Reaction Status Date / Time codeine Allergy Mild Gastrointestinal Verified 05/13/20 12:58 Upset Home Medications:: Home Medications Medication Instructions Recorded Confirmed Type donepezil 10 mg tablet 10 mg PO DAILY 03/03/18 06/25/21 History sertraline 50 mg tablet 50 mg PO HS 15 Days #15 tab 12/15/18 06/25/21 History Amlodipine Besylate [Norvasc 2.5mg 7.5 mg PO DAILY 12/31/18 06/25/21 History tablet] Acetaminophen [Acetaminophen Extra 1,000 mg PO Q6HP PRN 01/08/19 06/25/21 History Strength] insulin glargine 100 unit/mL (3 20 unit SQ QHS ml 01/04/20 06/25/21 History mL) subcutaneous pen mirtazapine 7.5 mg tablet 7.5 mg PO QHS tab 01/04/20 06/25/21 History polyethylene glycol 3350 17 17 g PO DAILY 01/04/20 06/25/21 History gram/dose oral powder memantine 5 mg tablet 5 mg PO BID tab 01/12/20 06/25/21 History Saccharomyces Boulardii [Florastor] 250 mg PO DAILY 01/15/20 06/25/21 History Aspirin [Aspirin 81mg chewable 81 mg PO DAILY 01/19/20 06/25/21 History tab] Atorvastatin Calcium [Lipitor 40mg 40 mg PO DAILY 02/06/20 06/25/21 History Tab] Docusate Sodium 100 mg PO DAILY 02/06/20 06/25/21 History Hydrocod/Acet 5/325 mg [[place] 1 tab PO Q4HP PRN #30 tab 02/09/20 06/25/21 Rx 5/325mg tablet] insulin lispro 100 unit/mL 20 unit SQ ACHS ml 02/29/20 06/25/21 History subcutaneous solution Potassium Chloride [Klor-con 20 40 meq PO BID 06/25/21 06/25/21 History mEq tablet] Rivaroxaban [Xarelto 2.5mg Tab*] 2.5 mg PO BID 06/25/21 06/25/21 History Height: 1.6 m Weight: 58.967 kg Laboratory Results:: Laboratory Results - last 24 hr 04/19/22 11:30: WBC 21.0 H*, RBC 5.94 H, Hgb 14.3, Hct 48.9 H, MCV 82.4, MCH 24.1 L, MCHC 29.2 L, RDW 19.3 H, Plt Count 314, MPV 9.8, Neut % (Auto) 86.2 H, Lymph % (Auto) 5.8 L, [place] % (Auto) 5.8, Eos % (Auto) 1.0, Baso % (Auto) 1.1, Neut # (Auto) 18.1 H, Lymph # (Auto) 1.2, [place] # (Auto) 1.2 H, Eos # (Auto) 0.2, Baso # (Auto) 0.2, Total Counted 100, Neutrophils % (Manual) 83 H, Lymphocytes % (Manual) 12, Monocytes % (Manual) 4, Eosinophils % (Manual) 1, Platelet Estimate Normal, Poikilocytosis 1+, Anisocytosis 1+, Target Cells 1+, Ovalocytes 1+, Schistocytes 1+ 04/19/22 11:30: Sodium 166 H*, Potassium 7.2 H*, Chloride 133 H, Carbon Dioxide 27, Anion Gap 13.2, BUN 58 H, Creatinine 1.50 H, Estimated Creat Clear 30, Estimated GFR 34 L, Est GFR ( Amer) 41 L, Glucose 219 H, Calcium 10.0, Total Bilirubin 0.7, AST 56 H, ALT 27, Alkaline Phosphatase 157 H, NT-Pro-B Natriuret Pep 684 H, Total Protein 8.0, Albumin 3.7, Globulin 4.3 H, Albumin/Globulin Ratio 0.9 L 04/19/22 11:30: SARS-CoV-2 (PCR) Not detected, Influenza A Untype (PCR) Not detected, Influenza Type B (PCR) Not detected 04/19/22 11:30: Lactate 1.5 04/19/22 12:19: Specimen Source Left radial, O2 % 2, ABG pH 7.41, ABG pCO2 34.4 L, ABG pO2 67.1 L, ABG HCO3 21.1 L, ABG Total CO2 22.2 L, ABG O2 Saturation 92, ABG Base Excess -3.6 L, Mykel Test Acceptable Medical History: Reports:: Atherosclerotic Heart Disease, Coronary Artery Disease, Cerebrovascular Accident, Diabetes Mellitus Type 2, Hypertension, Peripheral Artery Disease, Peripheral Vascular Disease, Urinary Tract Infection Denies:: Cancer, Diabetes Mellitus Type 1, Internal Pacemaker, MRSA, Seizures Assessment and Plan - Assessment and plan all Dx Assessment and Plan for all problems:: Pharmacokinetic dosing service Objective: Patient: Floor: Age: 76 yo Serum creatinine: 1.50 mg/dL Height: 63.0 Inches Weight (kg): 58.9 Assessment: IBW (kg): 52.40 Dosing wt(kg): 58.9 Estimated Creatinine clearance (ml/min): 26.4 CRCL method: [place]
--- NOTE | 2022-04-19 12:59 | PC.NURSE ---
Spoke with from [facility] and updated her on POC.
--- NOTE | 2022-04-19 14:00 | PC.NURSE ---
pt has not produced urine from cath for sample yet. RT called foor deep suction
--- NOTE | 2022-04-19 14:15 | PC.NURSE ---
RESP HERE FOR DEEP SUCTIONING
--- NOTE | 2022-04-19 14:20 | PC.NURSE ---
Called to bedside by RN to NT suction patient. Pt NT and orally suctioned for a large amount of white frothy thick sputum.
--- NOTE | 2022-04-19 14:22 | PC.NURSE ---
RT at the bedside for deep suction
--- NOTE | 2022-04-19 14:32 | PC.NURSE ---
1425-notified care management of admission, ej will corrie. States will be an acute admission
--- NOTE | 2022-04-19 15:25 | HMH.PHAVTE ---
[facility] Pharmacy VTE Monitoring - Patient Demographics Admission date: 04/19/22 Report Date: 04/19/22 Time: 15:25 Allergies/Adverse Reactions: Patient Allergies codeine Allergy (Mild, Verified 04/19/22 15:20) Gastrointestinal Upset Height: 1.6 m Weight: 58.967 kg Patient Problems: Current Active Problems Altered mental status (Acute) Hypernatremia (Acute) Sepsis (Acute) Acute kidney injury (Acute) Dehydration (Acute) Hyperkalemia (Acute) Healthcare-associated pneumonia (Acute) - VTE Risk Labs: VTE Related Lab Results Hgb 14.3 g/dL (12.2-16.2) 04/19/22 11:30 Hct 48.9 % (37.0-47.0) H 04/19/22 11:30 Plt Count 314 K/mm3 (142-424) 04/19/22 11:30 BUN 58 mg/dl (7-17) H 04/19/22 11:30 Creatinine 1.50 mg/dl (0.52-1.04) H 04/19/22 11:30 Estimated Creat Clear 30 mL/min (50-200) 04/19/22 11:30 - Prophylaxis VTE Prophylaxis Ordered?: Yes Types of VTE Prophylaxis: TEDS Knee High Location of Applied Device: Bilateral Lower Extremeties
--- NOTE | 2022-04-19 15:45 | PC.NURSE ---
urine specimen sent to lab
--- NOTE | 2022-04-19 15:55 | PC.NURSE ---
2ND FLOOR HERE TO TRANSPORT PT TO HER ROOM
--- NOTE | 2022-04-19 16:01 | PC.NURSE ---
Pt arrived to the floor at this time.
--- NOTE | 2022-04-19 16:02 | PC.NURSE ---
Pt arrived to the floor at this time
[2022-04-19 18:16] LABS: POC Glucose,Bedside 97 (70-110)
--- NOTE | 2022-04-19 19:59 | HMH.HP ---
*Admission Date: 04/19/22 *Chief complaint: AMS, respiratory distress *History of present illness: Ms. Mendez is a 76-year-old -[place] female who [facility]. 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 Has reportedly been refusing to eat and drink for the past 1 to 2 weeks. She was sent from the detention via EMS due to complaint of lethargy, chest congestion, shortness of breath, and hypoxia. Per EMS she had bilateral crackles and had minimal responsiveness on their arrival to the detention. Her saturations were in the 80s, improved with initiation of 2 L nasal cannula oxygen. On arrival to the ER, work-up was initiated including labs and chest imaging. Found to have severe dehydration with acute kidney injury, hypernatremia, hyperkalemia, CALLIE. Tachycardic with elevated white cell count. Meeting sepsis criteria. Concern for hypovolemic hypernatremia. Initiated on broad-spectrum antibiotics and fluid resuscitation/free water replacement. Of note, history obtained predominantly from patient's family at bedside, ER documentation, nursing. -They report she has advanced dementia, she has been less responsive, refusing to eat, pushing away food. They do not recall the last time she had anything to eat or drink or the last time she had a bowel movement. They confirm she is DNR however they would like to treat acute infections to see if it improves her functional status. On interview/exam this evening she remains in respiratory distress. Appears alert but agitated and nonverbal. Has not oriented to self or situation. Stable saturations on 2 L nasal cannula oxygen. [facility] History I have reviewed the patient's past medical history: Yes (from family and chart) Medical History: Reports:: Atherosclerotic Heart Disease, Coronary Artery Disease, Cerebrovascular Accident, Diabetes Mellitus Type 2, Hyperlipidemia, Hypertension, Peripheral Artery Disease, Peripheral Vascular Disease, Urinary Tract Infection Denies:: Cancer, Diabetes Mellitus Type 1, Internal Pacemaker, MRSA, Seizures *Have you ever received a pneumonia vaccine?: Yes *Have you received a flu vaccine this season?: Yes Other Medical History: Reports: Anemia, Hypothyroidism. Denies: Blood Transfusion Reaction Laterality Cases: Right: Lumpectomy, Bilateral: Other Other Surgeries: Yes: Angiogram, Cardiac Catheterization, Other. No: Pacemaker Amputation: Yes (Right AKA) Fractures: No - *Social History Smoking Status: Former smoker Tobacco Type: cigarettes # Packs/Day (cigarettes): 0 Alcohol Intake: never Alcohol Intake Frequency:: other Substance Use Type: denies use *Occupational Status:: disabled Housing: detention Household Members: caregiver, other *Travel in the last 8 weeks: None Family Hx:: Unable to obtain Review of Systems - Review of Systems Review of systems:: unable to obtain (obtunded) Meds Home Medications Medication Instructions Recorded Confirmed Type Amlodipine Besylate [Norvasc 2.5mg 7.5 mg PO DAILY 12/31/18 04/19/22 History tablet] Acetaminophen [Acetaminophen Extra 1,000 mg PO Q8HP PRN 01/08/19 04/19/22 History Strength] insulin glargine 100 unit/mL (3 24 unit SQ HS ml 01/04/20 04/19/22 History mL) subcutaneous pen polyethylene glycol 3350 17 17 g PO DAILY 01/04/20 04/19/22 History gram/dose oral powder Aspirin [Aspirin 81mg chewable 81 mg PO DAILY 01/19/20 04/19/22 History tab] Atorvastatin Calcium [Lipitor 40mg 40 mg PO HS 02/06/20 04/19/22 History Tab] Docusate Sodium 100 mg PO DAILY 02/06/20 04/19/22 History Rivaroxaban [Xarelto 2.5mg Tab*] 2.5 mg PO BID 06/25/21 04/19/22 History Buspirone HCl [Buspar 5mg tablet] 5 mg PO BID 04/19/22 04/19/22 History Hydrocod/Acet 5/325 mg [[place] 1 tab PO TID PRN 04/19/22 04/19/22 History 5/325mg tablet] Insulin Aspart [Novolog Flexpen] 0 unit
--- NOTE | 2022-04-19 20:37 | PC.NURSE ---
Family with patient singing to her & patient trying to make noise; responds to pain and verbal stimulation. B/L lung throughout have crackling, rattling, with diminished bases. O2 sat 93% with 2L NC. BP & HR elevated, BS 94, Fluids D5 1/2 NS 150ml/hr. <30mL urine output. Patient resting with eyes closes showing no s/s of acute distress at this time. Will continue to monitor.
[2022-04-19 20:49] LABS: Anion Gap 16.6 mEq/L (5-15); Blood Urea Nitrogen 55 mg/dl (7-17); Carbon Dioxide 21 mmol/L (22.0-30.0); Potassium 4.6 mmoL/L (3.5-5.1)
[2022-04-19 20:50] LABS: Calcium 9.5 mg/dl (8.4-10.2); Creatinine Clearance Estimated 27 mL/min (50-200); Estimated Glomerular Filt Rate 34 ml/min (>60); GFR (African American) 41 ML/MIN (>60); Glucose 137 mg/dl (74-100)
[2022-04-19 20:52] LABS: Chloride 135 mmol/L (98-107); Sodium 168 mmol/L (136-145)
[2022-04-20 04:00] VITALS: BP 157/91; PULSE 107; RESP 19; TEMP 37.9; O2SAT 94
--- NOTE | 2022-04-20 04:00 | PC.NURSE ---
pt nonverbal, pt will moan out on occasion, inspiratory and expiratory rhonchi noted throughout with 02 sats 91-94 on 02 at 2L; pt was nasal suctioned by RT and noted to have thick coupous amount of green secretions sent to lab for culture; pt with low grade temp and tylenol given, f/c with dark colored urine noted with sediment; pt bilateral amputee lower extremity; V/S remains stable, no other issues noted this shift, pt is DNR and stable at this time.
[2022-04-20 05:00] VITALS: BMI 21.4
--- NOTE | 2022-04-20 07:40 | DIET.NUTRFU ---
Addendum entered by Sabiha Flood RD, RAYSA 04/20/22 10:21: MANAGING PRINCIPAL did see patient this AM and determined NPO is the safest diet at this time, MANAGING PRINCIPAL will also work with patient x1 week to see if status changes. For nutritional support, family/patients wishes need to be addressed to determine if TF is wanted to provide nutrition until oral diet maybe feasible. Addendum entered by Sabiha Flood RD, RAYSA 04/20/22 10:12: Rounded with provider today, She continues to have rattling and not alert enough to eat. Has not eaten in last couple days at [place]. She will need speech eval before oral diet restarted. Consulted fir protein deficiency, will address when diet is medically feasible. IVF are currently in place for hydration. Original Note: RD reviewed [place] chart, from [place]. She is on pureed diet with thin liquids, upon visit it appears like she will need assistance with all meals. Patient also has dx of PCM at [place] and takes Medpass 2.0 QID for additional calories and protein, started glucerna with lunch and dinner. Kitchen/nursing notified of diet change
[2022-04-20 07:43] VITALS: BMI 21.4
[2022-04-20 08:00] VITALS: BP 103/60; PULSE 111; RESP 28; TEMP 37.9; O2SAT 88
[2022-04-20 08:43] LABS: Basophils # 0.2 K/mm3 (0-0.2); Basophils % 0.7 % (0.1-2.0); Eosinophils # 0.2 K/mm3 (0.0-0.4); Eosinophils % 0.7 % (0.1-12.0); Hematocrit 41.1 % (37.0-47.0); Lymphocytes # 0.6 K/mm3 (0.7-4.5); Lymphocytes % 2.1 % (10-50); Mean Corpuscular HGB Conc 29.3 g/dL (31.8-35.4); Mean Corpuscular Hemoglobin 24.5 pg (27.0-31.2); Mean Corpuscular Volume 83.6 fl (81-99); Mean Platelet Volume 10.3 fl (7.4-10.4); Monocytes # 0.6 K/mm3 (0.1-1.0); Monocytes % 2.1 % (1.7-9.3); Neutrophils # 27.8 K/mm3 (1.8-7.8); Neutrophils % 94.6 % (37.0-80.0); Platelet Count 192 K/mm3 (142-424); Red Blood Count 4.92 M/mm3 (4.20-5.40); Red Cell Distribution Width 19.6 % (11.5-17.5); White Blood Count 29.4 K/mm3 (4.8-10.8)
[2022-04-20 08:44] LABS: Hemoglobin 11.9 g/dL (12.2-16.2); MANUAL DIFFERENTIAL MANUAL DIFFERENTIAL (MANUAL DIFF)
[2022-04-20 08:52] LABS: Potassium 4.5 mmoL/L (3.5-5.1)
[2022-04-20 08:54] LABS: Blood Urea Nitrogen 55 mg/dl (7-17); Creatinine Clearance Estimated 26 mL/min (50-200); Estimated Glomerular Filt Rate 31 ml/min (>60); GFR (African American) 38 ML/MIN (>60)
[2022-04-20 08:55] LABS: Calcium 8.7 mg/dl (8.4-10.2); Carbon Dioxide 16 mmol/L (22.0-30.0)
[2022-04-20 09:02] LABS: Anion Gap 16.5 mEq/L (5-15)
[2022-04-20 09:05] LABS: Chloride 131 mmol/L (98-107); Glucose 440 mg/dl (74-100); Sodium 159 mmol/L (136-145)
--- NOTE | 2022-04-20 09:05 | PC.NURSE ---
Spoke with droina from lab about critical lab values
--- NOTE | 2022-04-20 09:09 | PC.NURSE ---
Spoke with Dr. Beltran about critical labs
[2022-04-20 09:10] LABS: Anisocytosis 1+; Burr Cells 1+; Hypochromasia 1+; Lymphocytes % 3 % (10-50); Monocytes % 4 % (2-9); Myelocytes % 1 (0-1); Neutrophils % 65 % (42-76); Ovalocytes 1+; Platelet Estimate Normal; Poikilocytosis 1+; Total Cells Counted 100
--- NOTE | 2022-04-20 09:12 | SW/DCPLANNER ---
This patient currently resides at [facility]. Per Yancy loyd/ [facility] patient is I[facility] level of care. I will continue to follow up with Yancy until patient is medically stable for discharge.
--- NOTE | 2022-04-20 10:02 | PC.NURSE ---
RESP CARE NOTE: Pt NT suctioned per NSG request due to upper airway secretions. Large amount light green sputum suctioned. Will continue to monitor patient.
--- NOTE | 2022-04-20 10:08 | HMH.ACPN2 ---
Internal Medicine - PN: Subj *Date: 04/20/22 *Time: 18:23 Interval history: Repeat labs this morning show improvement in sodium down approximately 10 points from labs yesterday evening. Patient remains altered. No nausea or vomiting. No fever overnight. Has required deep suctioning at times due to rhonchi and secretions. Unable to follow commands for tolerate p.o. intake. Cosby catheter draining yellow urine with significant sediment. Exam Vital signs and Labs for Last 24 Hours: Temp Pulse Resp BP Pulse Ox 100.2 F H 111 H 28 H 103/60 L 88 L 04/20/22 08:00 04/20/22 08:00 04/20/22 08:00 04/20/22 08:00 04/20/22 08:00 Laboratory Results - last 24 hr 04/19/22 11:30: WBC 21.0 H*, RBC 5.94 H, Hgb 14.3, Hct 48.9 H, MCV 82.4, MCH 24.1 L, MCHC 29.2 L, RDW 19.3 H, Plt Count 314, MPV 9.8, Neut % (Auto) 86.2 H, Lymph % (Auto) 5.8 L, [place] % (Auto) 5.8, Eos % (Auto) 1.0, Baso % (Auto) 1.1, Neut # (Auto) 18.1 H, Lymph # (Auto) 1.2, [place] # (Auto) 1.2 H, Eos # (Auto) 0.2, Baso # (Auto) 0.2, Total Counted 100, Neutrophils % (Manual) 83 H, Lymphocytes % (Manual) 12, Monocytes % (Manual) 4, Eosinophils % (Manual) 1, Platelet Estimate Normal, Poikilocytosis 1+, Anisocytosis 1+, Target Cells 1+, Ovalocytes 1+, Schistocytes 1+ 04/19/22 11:30: Sodium 166 H*, Potassium 7.2 H*, Chloride 133 H, Carbon Dioxide 27, Anion Gap 13.2, BUN 58 H, Creatinine 1.50 H, Estimated Creat Clear 30, Estimated GFR 34 L, Est GFR ( Amer) 41 L, Glucose 219 H, Calcium 10.0, Total Bilirubin 0.7, AST 56 H, ALT 27, Alkaline Phosphatase 157 H, NT-Pro-B Natriuret Pep 684 H, Total Protein 8.0, Albumin 3.7, Globulin 4.3 H, Albumin/Globulin Ratio 0.9 L 04/19/22 11:30: SARS-CoV-2 (PCR) Not detected, Influenza A Untype (PCR) Not detected, Influenza Type B (PCR) Not detected 04/19/22 11:30: Lactate 1.5 04/19/22 12:19: Specimen Source Left radial, O2 % 2, ABG pH 7.41, ABG pCO2 34.4 L, ABG pO2 67.1 L, ABG HCO3 21.1 L, ABG Total CO2 22.2 L, ABG O2 Saturation 92, ABG Base Excess -3.6 L, Mykel Test Acceptable 04/19/22 17:58: POC Glucose 97 04/19/22 20:22: Sodium 168 H*, Potassium 4.6 D, Chloride 135 H, Carbon Dioxide 21 L, Anion Gap 16.6 H, BUN 55 H, Creatinine 1.50 H, Estimated Creat Clear 27, Estimated GFR 34 L, Est GFR ( Amer) 41 L, Glucose 137 H D, Calcium 9.5 04/20/22 08:30: Sodium 159 H*, Potassium 4.5, Chloride 131 H, Carbon Dioxide 16 L, Anion Gap 16.5 H, BUN 55 H, Creatinine 1.60 H, Estimated Creat Clear 26, Estimated GFR 31 L, Est GFR ( Amer) 38 L, Glucose 440 H* D, Calcium 8.7 04/20/22 08:30: WBC 29.4 H* D, RBC 4.92, Hgb 11.9 L D, Hct 41.1, MCV 83.6, MCH 24.5 L, MCHC 29.3 L, RDW 19.6 H, Plt Count 192 D, MPV 10.3, Neut % (Auto) 94.6 H, Lymph % (Auto) 2.1 L, [place] % (Auto) 2.1, Eos % (Auto) 0.7, Baso % (Auto) 0.7, Neut # (Auto) 27.8 H, Lymph # (Auto) 0.6 L, [place] # (Auto) 0.6, Eos # (Auto) 0.2, Baso # (Auto) 0.2, Total Counted 100, Neutrophils % (Manual) 65, Band Neutrophils % 26.0 H, Lymphocytes % (Manual) 3 L, Monocytes % (Manual) 4, Metamyelocytes % 1.0, Myelocytes % 1, Platelet Estimate Normal, RBC Morphology Not Reportable, Hypochromasia 1+, Poikilocytosis 1+, Anisocytosis 1+, Ovalocytes 1+, Bryan Cells 1+ I & O for Last 24 hours: Intake & Output 04/17/22 04/18/22 04/19/22 04/20/22 23:59 23:59 23:59 23:59 Intake Total 240 / 240 2120 / 2120 Output Total 200 / 200 Balance 240 / 40 1920 / 1920 Weight 52.73 kg 54.839 kg Microbiology Reports for the Last 24 Hours: Microbiology 04/19/22 00:00 Sputum - Nasotracheal Suction Gram Stain - Final Narrative: - Constitutional moderate distress, chronically ill appearing, agitated - *Routine HEENT Exam Head: Present: normocephalic Eye: Present: EOMI, PERRL ENT: Present: mucous membranes dry - *Routine Neck Exam Present: supple. Absent: lymphadenopathy - *Routine Respiratory Exam Present: respiratory distress, rhonchi. Absent: wheezes - *Routine Cardiovascular Exam Present: tachycar
--- NOTE | 2022-04-20 10:15 | HMH.SLDYSPHA ---
Speech & Language Evaluation Speech/Language Dysphagia Evaluation Start: 04/20/22 10:05 Freq: ONCE Status: Active Protocol: Document 04/20/22 10:05 TRINH (Rec: 04/20/22 10:15 TRINH [id number]) Dysphagia Assess/Goals/Plan Assessment Date of Evaluation: 04/20/22 Evaluation Type Initial Certification Assessment/Problems Aspiration concern per MD order. Does Patient Qualify for Service Yes Qualify/Failure Comment Given patient's high risk of aspiration, she would benefit from skilled ST services 1x per week to re-assess as patient is able to participate . Recommendations PHYSICIAN CERTIFICATION: The specified therapy services are required, authorized, and reviewed every 30 days. Pt will be seen # times/week 1 for # weeks 3 Diet Recommendations NPO SL Swallow Guidelines High aspiration risk Plan Anticipate reaching STG in # weeks 2 Anticipate reaching LTG in # weeks 3 Pt/Guardian verbally ack understanding Yes of dx/prognosis/goals Pt/Guardian verbally ack understanding Yes of/consent to tx prog G -code Required No STG-Other Comment/Non-Specific 1. Patient will accept trials of LRD without s/sxs of aspiraiton in therapy session. 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 Pt/Caregiver able to recall information Able to recall/restate Reinforcement needed No Speech & Language HPI History Present Illness Description of Patient Problem Patient is a 76 year old female presenting to [facility] from [facility] via EMS with c/o lethargy, chest congestion, SOA, and hypoxia. PMH includes advanced Alzheimer's, bilateral lower extremety amputations, DM2, and peripheral artery disease. According to H&P, patient had been refusing to eat or drink at the nursing facility for 1 -2 weeks prior to admission to [facility]. She is currently NPO. Rehab Services Assessed Speech therapy Is this evaluation r/t stroke? No General Info
[2022-04-20 13:27] LABS: POC Glucose,Bedside 375 (70-110)
[2022-04-20 13:27] LABS: POC Glucose,Bedside 436 (70-110)
--- NOTE | 2022-04-20 14:25 | HMH.PHACONS ---
- Pharmacy Consult Date: 04/20/22 Time: 14:25 Referring provider: DR. HASSAN Reason for Consult:: VANCOMYCIN DOSING Allergies and ADEs:: Allergies Allergy/AdvReac Type Severity Reaction Status Date / Time codeine Allergy Mild Gastrointestinal Verified 04/19/22 15:20 Upset Home Medications:: Home Medications Medication Instructions Recorded Confirmed Type Amlodipine Besylate [Norvasc 2.5mg 7.5 mg PO DAILY 12/31/18 04/19/22 History tablet] Acetaminophen [Acetaminophen Extra 1,000 mg PO Q8HP PRN 01/08/19 04/19/22 History Strength] insulin glargine 100 unit/mL (3 24 unit SQ HS ml 01/04/20 04/19/22 History mL) subcutaneous pen polyethylene glycol 3350 17 17 g PO DAILY 01/04/20 04/19/22 History gram/dose oral powder Aspirin [Aspirin 81mg chewable 81 mg PO DAILY 01/19/20 04/19/22 History tab] Atorvastatin Calcium [Lipitor 40mg 40 mg PO HS 02/06/20 04/19/22 History Tab] Docusate Sodium 100 mg PO DAILY 02/06/20 04/19/22 History Rivaroxaban [Xarelto 2.5mg Tab*] 2.5 mg PO BID 06/25/21 04/19/22 History Buspirone HCl [Buspar 5mg tablet] 5 mg PO BID 04/19/22 04/19/22 History Hydrocod/Acet 5/325 mg [[place] 1 tab PO TID PRN 04/19/22 04/19/22 History 5/325mg tablet] Insulin Aspart [Novolog Flexpen] 0 unit SQ TIDWMEAL 04/19/22 04/19/22 History Mirtazapine 15 mg PO HS 04/19/22 04/19/22 History Potassium Chloride [Micro-K 10mEq 40 meq PO BID 04/19/22 04/19/22 History cap] Quetiapine Fumarate 12.5 mg PO HS 04/19/22 04/19/22 History Sertraline HCl [Zoloft] 25 mg PO HS 04/19/22 04/19/22 History hydroCHLOROthiazide [HCTZ 25mg 25 mg PO DAILY 04/19/22 04/19/22 History tab] Height: 1.6 m Weight: 54.839 kg Laboratory Results:: Laboratory Results - last 24 hr 04/19/22 17:58: POC Glucose 97 04/19/22 20:22: Sodium 168 H*, Potassium 4.6 D, Chloride 135 H, Carbon Dioxide 21 L, Anion Gap 16.6 H, BUN 55 H, Creatinine 1.50 H, Estimated Creat Clear 27, Estimated GFR 34 L, Est GFR ( Amer) 41 L, Glucose 137 H D, Calcium 9.5 04/20/22 07:00: POC Glucose 375 H* 04/20/22 08:30: Sodium 159 H*, Potassium 4.5, Chloride 131 H, Carbon Dioxide 16 L, Anion Gap 16.5 H, BUN 55 H, Creatinine 1.60 H, Estimated Creat Clear 26, Estimated GFR 31 L, Est GFR ( Amer) 38 L, Glucose 440 H* D, Calcium 8.7 04/20/22 08:30: WBC 29.4 H* D, RBC 4.92, Hgb 11.9 L D, Hct 41.1, MCV 83.6, MCH 24.5 L, MCHC 29.3 L, RDW 19.6 H, Plt Count 192 D, MPV 10.3, Neut % (Auto) 94.6 H, Lymph % (Auto) 2.1 L, [place] % (Auto) 2.1, Eos % (Auto) 0.7, Baso % (Auto) 0.7, Neut # (Auto) 27.8 H, Lymph # (Auto) 0.6 L, [place] # (Auto) 0.6, Eos # (Auto) 0.2, Baso # (Auto) 0.2, Total Counted 100, Neutrophils % (Manual) 65, Band Neutrophils % 26.0 H, Lymphocytes % (Manual) 3 L, Monocytes % (Manual) 4, Metamyelocytes % 1.0, Myelocytes % 1, Platelet Estimate Normal, RBC Morphology Not Reportable, Hypochromasia 1+, Poikilocytosis 1+, Anisocytosis 1+, Ovalocytes 1+, [place]isa Cells 1+ 04/20/22 13:12: POC Glucose 436 H* Medical History: Reports:: Atherosclerotic Heart Disease, Coronary Artery Disease, Cerebrovascular Accident, Diabetes Mellitus Type 2, Hyperlipidemia, Hypertension, Peripheral Artery Disease, Peripheral Vascular Disease, Urinary Tract Infection Denies:: Cancer, Diabetes Mellitus Type 1, Internal Pacemaker, MRSA, Seizures Assessment and Plan (1) Sepsis Status: Acute Qualifiers: Sepsis type: sepsis due to unspecified organism Sepsis acute organ dysfunction status: with acute organ dysfunction Severe sepsis acute organ dysfunction type: acute respiratory failure Acute respiratory failure type: with hypoxia Severe sepsis shock status: without septic shock Qualified Code(s): A41.9 - Sepsis, unspecified organism; R65.20 - Severe sepsis without septic shock; J96.01 - Acute respiratory failure with hypoxia Category: Medical Code(s): A41.9 - Sepsis, unspecified organism (2) Afib Status: Acute Category: Medical Code(s):
--- NOTE | 2022-04-20 15:38 | PC.NURSE ---
Pt was changed from 2L to 3L NC with increase SOA. She has inspiratory, and expiratory rhonchi, and needed to be deep suctioned multiple times. She is currently getting d5 1/2 NS @150. We are monitoring her BS levels and adjusting her insulin. She is only responsive to pain and cannot follow commands. Pt has no change since last assessment.
[2022-04-20 16:00] VITALS: BP 140/78; PULSE 107; RESP 28; TEMP 37.2; O2SAT 94
--- NOTE | 2022-04-20 18:00 | PC.NURSE ---
Spoke with lab about critical labs
--- NOTE | 2022-04-20 18:00 | PC.NURSE ---
Spoke with Dr. Beltran about critical labs.
[2022-04-20 18:25] LABS: Potassium 3.4 mmoL/L (3.5-5.1)
[2022-04-20 18:28] LABS: Anion Gap 14.4 mEq/L (5-15); Blood Urea Nitrogen 49 mg/dl (7-17); Calcium 8.7 mg/dl (8.4-10.2); Carbon Dioxide 19 mmol/L (22.0-30.0); Creatinine Clearance Estimated 28 mL/min (50-200); Estimated Glomerular Filt Rate 34 ml/min (>60); GFR (African American) 41 ML/MIN (>60); Glucose 332 mg/dl (74-100)
[2022-04-20 18:51] LABS: Chloride 129 mmol/L (98-107); Sodium 159 mmol/L (136-145)
[2022-04-20 18:59] LABS: POC Glucose,Bedside 304 (70-110)
[2022-04-20 20:00] VITALS: BP 135/92; PULSE 104; RESP 24; TEMP 37.3; O2SAT 84; O2SAT 95
[2022-04-20 23:12] LABS: POC Glucose,Bedside 195 (70-110)
[2022-04-21] VITALS: BP 120/56; PULSE 91; RESP 24; TEMP 37.2; O2SAT 95
[2022-04-21 00:17] LABS: POC Glucose,Bedside 301 (70-110)
[2022-04-21 04:00] VITALS: BP 141/64; PULSE 102; RESP 22; TEMP 37.2; O2SAT 92
--- NOTE | 2022-04-21 04:00 | PC.NURSE ---
pt more lethargic and responds only to painful stimuli, pt congested with scattered rhonchi and requires deep suctioning frequently, f/c to bsd with kelley colored urine, no skin issues, pt remains npo, VSS, 02 at 3L with 02 sats 92-95; respirations more shallow but regular and spontaneous, no other issues noted. pt remains DNR
[2022-04-21 04:42] VITALS: BMI 21.8
[2022-04-21 07:33] LABS: Alanine Aminotransferase 30 U/L (12-78); Albumin Level 2.6 g/dl (3.5-5.0); Albumin/Globulin Ratio 0.7 (1.1-1.8); Alkaline Phosphatase 129 U/L (38-126); Anion Gap 11.9 mEq/L (5-15); Aspartate Amino Transferase 65 U/L (14-36); Bilirubin,Total 0.3 mg/dl (0.2-1.3); Blood Urea Nitrogen 38 mg/dl (7-17); Calcium 8.1 mg/dl (8.4-10.2); Carbon Dioxide 18 mmol/L (22.0-30.0); Creatinine Clearance Estimated 42 mL/min (50-200); Estimated Glomerular Filt Rate 54 ml/min (>60); GFR (African American) 65 ML/MIN (>60); Globulin 3.5 g/dL (1.3-3.2); Glucose 148 mg/dl (74-100); Total Protein,Serum 6.1 g/dl (6.3-8.2)
[2022-04-21 07:44] LABS: Chloride 129 mmol/L (98-107); Potassium 2.9 mmoL/L (3.5-5.1); Sodium 156 mmol/L (136-145)
[2022-04-21 08:00] VITALS: BP 118/53; PULSE 90; RESP 28; TEMP 37.9; O2SAT 94
--- NOTE | 2022-04-21 08:09 | HMH.ACPN2 ---
Internal Medicine - PN: Subj *Date: 04/21/22 *Time: 13:31 Interval history: Patient somewhat less responsive today. Remains hemodynamically stable. Unfortunately developed a fever this morning. Still has rhonchorous breathing. Stable oxygen requirement. Draining light yellow urine in catheter, adequate urine output. Bowel movement yesterday. No vomiting. Labs reviewed this morning, sodium correcting at an appropriate rate. Exam Vital signs and Labs for Last 24 Hours: Temp Pulse Resp BP Pulse Ox 99.0 F 102 H 22 141/64 H 92 L 04/21/22 04:00 04/21/22 04:00 04/21/22 04:00 04/21/22 04:00 04/21/22 04:00 Laboratory Results - last 24 hr 04/19/22 22:33: POC Glucose 195 H 04/20/22 07:00: POC Glucose 375 H* 04/20/22 08:30: Sodium 159 H*, Potassium 4.5, Chloride 131 H, Carbon Dioxide 16 L, Anion Gap 16.5 H, BUN 55 H, Creatinine 1.60 H, Estimated Creat Clear 26, Estimated GFR 31 L, Est GFR ( Amer) 38 L, Glucose 440 H* D, Calcium 8.7 04/20/22 08:30: WBC 29.4 H* D, RBC 4.92, Hgb 11.9 L D, Hct 41.1, MCV 83.6, MCH 24.5 L, MCHC 29.3 L, RDW 19.6 H, Plt Count 192 D, MPV 10.3, Neut % (Auto) 94.6 H, Lymph % (Auto) 2.1 L, [place] % (Auto) 2.1, Eos % (Auto) 0.7, Baso % (Auto) 0.7, Neut # (Auto) 27.8 H, Lymph # (Auto) 0.6 L, [place] # (Auto) 0.6, Eos # (Auto) 0.2, Baso # (Auto) 0.2, Total Counted 100, Neutrophils % (Manual) 65, Band Neutrophils % 26.0 H, Lymphocytes % (Manual) 3 L, Monocytes % (Manual) 4, Metamyelocytes % 1.0, Myelocytes % 1, Platelet Estimate Normal, RBC Morphology Not Reportable, Hypochromasia 1+, Poikilocytosis 1+, Anisocytosis 1+, Ovalocytes 1+, [place] Cells 1+ 04/20/22 13:12: POC Glucose 436 H* 04/20/22 18:00: Sodium 159 H*, Potassium 3.4 L D, Chloride 129 H, Carbon Dioxide 19 L, Anion Gap 14.4, BUN 49 H, Creatinine 1.50 H, Estimated Creat Clear 28, Estimated GFR 34 L, Est GFR ( Amer) 41 L, Glucose 332 H D, Calcium 8.7 04/20/22 18:48: POC Glucose 304 H* 04/20/22 22:27: POC Glucose 301 H* 04/21/22 07:00: Sodium 156 H*, Potassium 2.9 L*, Chloride 129 H, Carbon Dioxide 18 L, Anion Gap 11.9, BUN 38 H, Creatinine 1.00 D, Estimated Creat Clear 42, Estimated GFR 54 L, Est GFR ( Amer) 65 D, Glucose 148 H D, Calcium 8.1 L, Magnesium 2.0, Total Bilirubin 0.3, AST 65 H, ALT 30, Alkaline Phosphatase 129 H, Total Protein 6.1 L, Albumin 2.6 L, Globulin 3.5 H, Albumin/Globulin Ratio 0.7 L I & O for Last 24 hours: Intake & Output 04/18/22 04/19/22 04/20/22 04/21/22 23:59 23:59 23:59 23:59 Intake Total 240 / 240 3876 / 3876 1659 / 1659 Output Total 2200 / 2450 925 / 925 Balance 240 / 40 1676 / 1426 734 / 734 Weight 52.73 kg 54.839 kg 55.934 kg Microbiology Reports for the Last 24 Hours: Microbiology 04/19/22 00:00 Sputum - Nasotracheal Suction Gram Stain - Final 04/19/22 00:00 Sputum - Nasotracheal Suction Sputum Culture - Preliminary Narrative: - Constitutional mild distress, chronically ill appearing, agitated - *Routine HEENT Exam Head: Present: normocephalic Eye: Present: EOMI, PERRL ENT: Present: mucous membranes dry - *Routine Neck Exam Present: supple. Absent: lymphadenopathy - *Routine Respiratory Exam Present: respiratory distress, rhonchi. Absent: wheezes - *Routine Cardiovascular Exam Present: tachycardia, irregularly irregular - *Routine Abdominal Exam Present: soft, normoactive bowel sounds, tenderness (diffuse, non-focal) - *Routine Extremities Exam Present: amputation (Bilateral: Rt AKA, Left BKA). Absent: cyanosis, clubbing, edema - *Routine Skin Exam Present: warm. Absent: rash - *Routine Neurological Exam Present: altered mental status, withdraws from pain Assessment and Plan (1) Sepsis Status: Acute Qualifiers: Sepsis type: sepsis due to unspecified organism Sepsis acute organ dysfunction status: with acute organ dysfunction Severe sepsis acute organ dysfunction type: acute respiratory failure Acute respiratory failure type: with hy
[2022-04-21 12:00] VITALS: BP 126/57; PULSE 53; RESP 28; TEMP 37.6; O2SAT 91
[2022-04-21 12:44] LABS: Basophils # 0.1 K/mm3 (0-0.2); Basophils % 0.2 % (0.1-2.0); Eosinophils % 0.2 % (0.1-12.0); Hematocrit 31.8 % (37.0-47.0); Lymphocytes # 1.1 K/mm3 (0.7-4.5); Lymphocytes % 5.1 % (10-50); Mean Corpuscular Hemoglobin 23.8 pg (27.0-31.2); Mean Corpuscular Volume 79.3 fl (81-99); Mean Platelet Volume 8.4 fl (7.4-10.4); Monocytes # 0.7 K/mm3 (0.1-1.0); Monocytes % 3.3 % (1.7-9.3); Neutrophils # 18.7 K/mm3 (1.8-7.8); Neutrophils % 91.2 % (37.0-80.0); Platelet Count 166 K/mm3 (142-424); Red Blood Count 4.02 M/mm3 (4.20-5.40); Red Cell Distribution Width 18.7 % (11.5-17.5); White Blood Count 20.5 K/mm3 (4.8-10.8)
[2022-04-21 12:47] LABS: Hemoglobin 9.6 g/dL (12.2-16.2); MANUAL DIFFERENTIAL MANUAL DIFFERENTIAL (MANUAL DIFF)
--- NOTE | 2022-04-21 13:11 | XR_ITS ---
PROCEDURE INFORMATION: Exam: XR Chest Exam date and time: 04/21/2022 1:58 PM Age: 76 years old Clinical indication: Shortness of breath; Additional info: Increased o2 requirement, fever. TECHNIQUE: Imaging protocol: Radiologic exam of the chest. Views: 1 view. COMPARISON: CR XR CHEST PORTABLE 04/19/2022 11:40 AM FINDINGS: Airway: Central airways are patent. Lungs: Bilateral multifocal large patchy and dense airspace consolidations with air bronchograms seen throughout the lungs. Pleural spaces: Thickening of the right minor fissure. No large pleural effusions are noted. No pneumothorax. Heart/Mediastinum: Moderate cardiomegaly. Bones/joints: No acute skeletal abnormality or aggressive osseous lesion. IMPRESSION: 1. Severe, bilateral, and multifocal infectious pneumonia. Atypical viral organisms should be entertained. 2. Trace amount of fluid layering in the right minor fissure.
[2022-04-21 16:00] VITALS: BP 133/67; PULSE 111; RESP 28; TEMP 37.7; O2SAT 81
[2022-04-21 16:44] LABS: Anisocytosis 1+; Lymphocytes % 13 % (10-50); Microcytosis 1+; Monocytes % 4 % (2-9); Neutrophils % 83 % (42-76); Platelet Estimate Normal; Total Cells Counted 100
[2022-04-21 16:45] LABS: Burr Cells 2+; Hypochromasia 2+
[2022-04-21 17:23] LABS: POC Glucose,Bedside 284 (70-110)
[2022-04-21 17:23] LABS: POC Glucose,Bedside 198 (70-110)
[2022-04-21 18:40] LABS: Potassium 3.2 mmoL/L (3.5-5.1)
[2022-04-21 18:42] LABS: Blood Urea Nitrogen 22 mg/dl (7-17); Creatinine Clearance Estimated 42 mL/min (50-200); Estimated Glomerular Filt Rate 70 ml/min (>60); GFR (African American) 84 ML/MIN (>60)
[2022-04-21 18:43] LABS: Alanine Aminotransferase 35 U/L (12-78); Albumin Level 2.7 g/dl (3.5-5.0); Albumin/Globulin Ratio 0.8 (1.1-1.8); Alkaline Phosphatase 143 U/L (38-126); Anion Gap 13.2 mEq/L (5-15); Aspartate Amino Transferase 78 U/L (14-36); Bilirubin,Total 0.7 mg/dl (0.2-1.3); Calcium 8.3 mg/dl (8.4-10.2); Carbon Dioxide 17 mmol/L (22.0-30.0); Globulin 3.6 g/dL (1.3-3.2); Total Protein,Serum 6.3 g/dl (6.3-8.2)
[2022-04-21 18:53] LABS: Sodium 153 mmol/L (136-145)
[2022-04-21 18:54] LABS: Glucose 322 mg/dl (74-100)
[2022-04-21 18:57] LABS: Chloride 126 mmol/L (98-107)
--- NOTE | 2022-04-21 18:59 | PC.NURSE ---
recvd critical lab value for K+ 2.9 provider notified.
--- NOTE | 2022-04-21 18:59 | PC.NURSE ---
Addendum entered by Keyla Herring RN 04/21/22 19:09: v.o. for Chem 7 on 04/22/22 at 00:01 Original Note: recvd critical lab Na+ 158 & Chloride 126 provider notified and gave v.o. for Chem 7 to be drawn at 1201 04/23/22 order in computer
[2022-04-21 20:00] VITALS: BP 128/77; PULSE 110; RESP 26; TEMP 36.7; O2SAT 90
--- NOTE | 2022-04-21 20:07 | PC.NURSE ---
patient seems more alert today; able to focus on nurse when at bedside, O2 sats range from 80-96%; have deep suctioned x 3 patient with O2 sat improvement; BM x 2; Lungs have rhonchi and diminished throughout. patient has difficulty with swallowing and unable to swallow medication. FSBS range 198-284 with total of 15units given for coverage. Received 2 runs of Potassium 20mEq. Oral care & turned every 2 hours. Patient has shown no s/s of acute distress, call light within reach, bed at lowest level; will continue to monitor.
[2022-04-22] VITALS (8 sets, daily range): BP systolic 111–134; BP diastolic 40–85; PULSE 90–107; RESP 18–30; TEMP 36.6–37.1; O2SAT 89–96; BMI 21.8
[2022-04-22 01:09] LABS: Anion Gap 12.5 mEq/L (5-15); Blood Urea Nitrogen 20 mg/dl (7-17); Carbon Dioxide 23 mmol/L (22.0-30.0); Creatinine Clearance Estimated 42 mL/min (50-200); Estimated Glomerular Filt Rate 81 ml/min (>60); GFR (African American) 98 ML/MIN (>60)
[2022-04-22 01:11] LABS: Glucose 221 mg/dl (74-100); Sodium 154 mmol/L (136-145)
[2022-04-22 01:12] LABS: Chloride 123 mmol/L (98-107); Potassium 4.5 mmoL/L (3.5-5.1)
--- NOTE | 2022-04-22 08:12 | PC.NURSE ---
Addendum entered by Eloina Hays RN 04/22/22 08:18: CRITICAL VALUES DURING MY SHIFT CALLED TO DR. TRUONG. NO NEW ORDERS. Original Note: LATE ENTRY - MAJORITY OF THIS SHIFT PT HAS NOT BEEN RESPONSIVE - ONLY PULLS AWAY FROM PAINFUL STIMULI. PT HAS MAINTAINED SPO2 OF >90% ON 3-4L NC. IV INFUSING PER ORDER. VOIDING PER CEE CATH. RT DEEP SUCTIONED PT ONCE THIS SHIFT WITH GOOD RESULTS. AROUND 0600 - PT EXHIBITING SHALLOW, GASPING RESPIRATIONS. VITALS ARE STABLE AT THIS TIME. NOTIFIED ROOM SERVICE WAITER/WAITRESS - RECOMMENDED I CALL PTS FAMILY IN. PTS FAMILY CALLED. NOTIFIED DR. TRUONG OF THESE FINDINGS. NO ORDERS AT THIS TIME, CALL FAMILY IF NOT ALREADY DONE. PTS FAMILY HAS ARRIVED AND AT BEDSIDE WITH PT. CALL LIGHT IN REACH.
[2022-04-22 08:29] LABS: POC Glucose,Bedside 357 (70-110)
[2022-04-22 08:29] LABS: POC Glucose,Bedside 302 (70-110)
[2022-04-22 08:30] LABS: Basophils # 0.1 K/mm3 (0-0.2); Basophils % 0.7 % (0.1-2.0); Eosinophils # 0.1 K/mm3 (0.0-0.4); Eosinophils % 0.8 % (0.1-12.0); Hematocrit 44.2 % (37.0-47.0); Hemoglobin 12.7 g/dL (12.2-16.2); Lymphocytes # 0.4 K/mm3 (0.7-4.5); Lymphocytes % 2.2 % (10-50); Mean Corpuscular HGB Conc 28.7 g/dL (31.8-35.4); Mean Corpuscular Hemoglobin 23.9 pg (27.0-31.2); Mean Corpuscular Volume 83.3 fl (81-99); Mean Platelet Volume 7.9 fl (7.4-10.4); Monocytes # 0.6 K/mm3 (0.1-1.0); Monocytes % 3.1 % (1.7-9.3); Neutrophils # 17.2 K/mm3 (1.8-7.8); Neutrophils % 93.3 % (37.0-80.0); Platelet Count 150 K/mm3 (142-424); Red Blood Count 5.31 M/mm3 (4.20-5.40); Red Cell Distribution Width 19.7 % (11.5-17.5); White Blood Count 18.4 K/mm3 (4.8-10.8)
[2022-04-22 08:34] LABS: MANUAL DIFFERENTIAL MANUAL DIFFERENTIAL (MANUAL DIFF)
[2022-04-22 09:00] LABS: Alanine Aminotransferase 31 U/L (12-78); Albumin Level 2.5 g/dl (3.5-5.0); Albumin/Globulin Ratio 0.7 (1.1-1.8); Alkaline Phosphatase 143 U/L (38-126); Anion Gap 9.8 mEq/L (5-15); Aspartate Amino Transferase 55 U/L (14-36); Bilirubin,Total 0.3 mg/dl (0.2-1.3); Blood Urea Nitrogen 19 mg/dl (7-17); Calcium 7.5 mg/dl (8.4-10.2); Carbon Dioxide 20 mmol/L (22.0-30.0); Chloride 122 mmol/L (98-107); Creatinine Clearance Estimated 42 mL/min (50-200); Estimated Glomerular Filt Rate 81 ml/min (>60); GFR (African American) 98 ML/MIN (>60); Globulin 3.4 g/dL (1.3-3.2); Glucose 391 mg/dl (74-100); Magnesium 1.6 mg/dl (1.6-2.3); Sodium 149 mmol/L (136-145); Total Protein,Serum 5.9 g/dl (6.3-8.2)
[2022-04-22 09:09] LABS: Eosinophils % 1 % (0-3); Lymphocytes % 5 % (10-50); Monocytes % 3 % (2-9); Neutrophils % 91 % (42-76); Total Cells Counted 100
[2022-04-22 09:11] LABS: Burr Cells 2+; Hypochromasia 1+; Platelet Estimate Normal
[2022-04-22 09:33] LABS: Potassium 2.8 mmoL/L (3.5-5.1)
[2022-04-22 10:46] LABS: POC Glucose,Bedside 404 (70-110)
--- NOTE | 2022-04-22 11:53 | HMH.ACPN2 ---
Internal Medicine - PN: Subj *Date: 04/22/22 *Time: 11:53 Interval history: Patient had an event overnight where she required increased oxygen, decrease in blood pressure, change in respiratory status. Family was called in. He is less responsive on exam this morning. Family at bedside including sisters and nieces. Extensive discussion about goals of care and current progress. Patient less responsive on exam today. Appears in minimal distress. Afebrile. Normotensive. On 4 L nasal cannula oxygen. Labs reviewed, improved sodium and chloride levels. Potassium low. Kidney function normalized. Continues to have adequate urine output. Exam Vital signs and Labs for Last 24 Hours: Temp Pulse Resp BP Pulse Ox 98.0 F 100 H 26 H 127/49 L 93 L 04/22/22 07:55 04/22/22 08:00 04/22/22 07:55 04/22/22 07:55 04/22/22 07:55 Laboratory Results - last 24 hr 04/21/22 07:38: WBC 20.5 H* D, RBC 4.02 L, Hgb 9.6 L D, Hct 31.8 L, MCV 79.3 L, MCH 23.8 L, MCHC 30.0 L, RDW 18.7 H, Plt Count 166, MPV 8.4, Neut % (Auto) 91.2 H, Lymph % (Auto) 5.1 L, [place] % (Auto) 3.3, Eos % (Auto) 0.2, Baso % (Auto) 0.2, Neut # (Auto) 18.7 H, Lymph # (Auto) 1.1, [place] # (Auto) 0.7, Eos # (Auto) 0.0, Baso # (Auto) 0.1, Total Counted 100, Neutrophils % (Manual) 83 H, Lymphocytes % (Manual) 13, Monocytes % (Manual) 4, Platelet Estimate Normal, RBC Morphology Not Reportable, Hypochromasia 2+, Anisocytosis 1+, Microcytosis 1+, [place] Cells 2+ 04/21/22 11:14: POC Glucose 198 H 04/21/22 17:15: POC Glucose 284 H 04/21/22 18:30: Sodium 153 H*, Potassium 3.2 L, Chloride 126 H, Carbon Dioxide 17 L, Anion Gap 13.2, BUN 22 H D, Creatinine 0.80, Estimated Creat Clear 42, Estimated GFR 70, Est GFR ([facility] Amer) 84 D, Glucose 322 H D, Calcium 8.3 L, Total Bilirubin 0.7, AST 78 H, ALT 35, Alkaline Phosphatase 143 H, Total Protein 6.3, Albumin 2.7 L, Globulin 3.6 H, Albumin/Globulin Ratio 0.8 L 04/21/22 20:00: POC Glucose 302 H* 04/22/22 00:45: Sodium 154 H*, Potassium 4.5 D, Chloride 123 H, Carbon Dioxide 23, Anion Gap 12.5, BUN 20 H, Creatinine 0.70, Estimated Creat Clear 42, Estimated GFR 81, Est GFR ([facility] Amer) 98, Glucose 221 H D, Calcium 8.0 L 04/22/22 05:34: POC Glucose 357 H* 04/22/22 07:00: Sodium 149 H, Potassium 2.8 L* D, Chloride 122 H, Carbon Dioxide 20 L, Anion Gap 9.8, BUN 19 H, Creatinine 0.70, Estimated Creat Clear 42, Estimated GFR 81, Est [facility] ([facility]) 98, Glucose 391 H D, Calcium 7.5 L, Magnesium 1.6 D, Total Bilirubin 0.3, AST 55 H D, ALT 31, Alkaline Phosphatase 143 H, Total Protein 5.9 L, Albumin 2.5 L, Globulin 3.4 H, Albumin/Globulin Ratio 0.7 L 04/22/22 08:15: WBC 18.4 H, RBC 5.31 D, Hgb 12.7, Hct 44.2, MCV 83.3, MCH 23.9 L, MCHC 28.7 L, RDW 19.7 H, Plt Count 150, MPV 7.9, Neut % (Auto) 93.3 H, Lymph % (Auto) 2.2 L, [place] % (Auto) 3.1, Eos % (Auto) 0.8, Baso % (Auto) 0.7, Neut # (Auto) 17.2 H, Lymph # (Auto) 0.4 L, [place] # (Auto) 0.6, Eos # (Auto) 0.1, Baso # (Auto) 0.1, Total Counted 100, Neutrophils % (Manual) 91 H, Lymphocytes % (Manual) 5 L, Monocytes % (Manual) 3, Eosinophils % (Manual) 1, Platelet Estimate Normal, Hypochromasia 1+, Marisa Cells 2+ 04/22/22 10:37: POC Glucose 404 H* I & O for Last 24 hours: Intake & Output 04/19/22 04/20/22 04/21/22 04/22/22 23:59 23:59 23:59 23:59 Intake Total 240 / 240 3876 / 3876 4159 / 4159 2400 / 2400 Output Total 2200 / 2450 2350 / 2650 600 / 600 Balance 240 / 40 1676 / 1426 1809 / 1509 1800 / 1800 Weight 52.73 kg 54.839 kg 55.934 kg 55.82 kg Microbiology Reports for the Last 24 Hours: Microbiology 04/19/22 00:00 Sputum - Nasotracheal Suction Gram Stain - Final 04/19/22 00:00 Sputum - Nasotracheal Suction Sputum Culture - Preliminary Gram Negative Rods Gram Positive Cocci 04/19/22 11:29 Blood Blood Culture - Preliminary NO GROWTH AFTER 48 HOURS 04/19/22 11:29 Blood Blood Culture - Preliminary
--- NOTE | 2022-04-22 17:23 | PC.NURSE ---
PT IS RESTING IN BED WITH FAMILY AT BEDSIDE. PT HAS BECAME LESS RESPONSIVE T/O THE SHIFT. WILL OCCASIONALLY MOAN TO PAINFUL STIMULI. TURNED AND REPOSITIONED IN BED Q2H. LUNG SOUNDS HAVE SCATTERED RHONCHI WITH BILATERAL CRACKLES. PT IS UNABLE TO EAT OR DRINK. BILATERAL AMPUTATIONS. O2 SATURATION HAS MAINTAINED 90-94% ON 4 L NC. WHEN LAB ARRIVED TO THE ROOM AT 1630 TO DRAW BLOOD FOR VANC TROUGH LEVEL FAMILY STATED THAT THEY WANTED TO STOP ANTIBIOTICS THIS EVENING SO THEY DID NOT FEEL IT WAS NECESSARY TO GET THE TROUGH. FAMILY AT BEDSIDE STATED IT WAS DISCUSSED THIS MORNING WITH ABOUT STOPPING EVERYTHING THIS EVENING AND KEEPING PT COMFORTABLE. NOTIFIED ALEKSEY RANDALL WHO WAS IN THE ROOM THIS MORNING DURING DISCUSSION AND WILL BE BACK AT THE HOSPITAL THIS EVENING TO STAY ALL NIGHT WITH PT AND SHE STATED ALL FAMILY MEMBERS WERE ALL ON THE SAME PAGE WITH WANTING TO KEEP PT COMFORTABLE. NOTIFIED AND HE STOPPED LABS, ABX AND COMFORT MEDS HAVE BEEN ORDERED AT THIS TIME. WILL CONTINUE TO MONITOR.
--- NOTE | 2022-04-22 23:00 | PC.NURSE ---
per family request - after this bag of iv fluids is finished, no more iv fluids.
[2022-04-23] VITALS: PULSE 90
[2022-04-23 00:38] LABS: POC Glucose,Bedside 273 (70-110)
--- NOTE | 2022-04-23 02:39 | P.DN_ITS ---
Pronouncement Note - Date and Time of Date of : 04/23/22 Time of : 02:17 - Additional Data Confirmation of : no pulse, no respirations, no heart sounds, pupils fixed and dilated Family: at bedside Attending/PCP notified?: Yes Attending physician: Lorne Beltran MD Was code activated?: No Autopsy requested?: No garment alteration examiner notified?: No Organ bank notified?: Yes Advance directives: Yes
--- NOTE | 2022-04-23 04:20 | PC.NURSE ---
Body released to home @ this time.
--- NOTE | 2022-04-23 04:22 | PC.NURSE ---
Addendum entered by Eloina Hays RN 04/23/22 05:37: iv, boucher, o2 removed. Addendum entered by Eloina Hays RN 04/23/22 04:36: [facility]. Original Note: Pt at 0217 w/ family at bedside. ER doc notified @ 0219. Dr. Pisano came to room and pronounced pt. Post mortem care provided. Dr. Perry (production honing machine operator ) contacted and notified of pt at 0230. [facility] contacted at 0240. Talked to [facility] business development representative Shadia Bell. Case # [id number]. Pt is not candidate for donation. Per family - they are ready for us to call home - [facility]. [facility] Pt left unit via stretcher w/ [facility] at 0420.
--- NOTE | 2022-04-23 04:28 | PC.NURSE ---
LATE ENTRY - Pt has been non responsive this shift. Family at bedside staying the night, and multiple family members have came to visit pt. Pt still exhibiting shallow, gasping respirations. Pt does not seem to be uncomfortable at this time. Explained to family that pt does have prn medications for comfort if needed. Family verbalized understanding - does not think meds are needed at this time. Pt is being turned q2hrs and oral care is being performed. Call light in reach.
--- NOTE | 2022-05-09 12:11 | P.DN_ITS ---
Discharge Sum: Prov - Provider Primary care physician: Bay Daniels MD Visit Care Team Role Provider Type Bay Daniels MD Primary Care Provider Staff Physician Houston Cabrales MD Emergency Provider ER Physician Lorne Beltran MD Admit Provider Staff Physician Attending Provider Admitting clinician: Bay Daniels Attending physician on admission: Bay Daniels Consults: 04/20/22 07:53 Nutrition Consult [CONS] Routine Comment: Reason for Nutrition Consult: Other Diet Instruction Type/Other: protein deficiency Pronouncing clinician: Javad Pisano Discharge Sum: Diag - PCOD Cause of : Pneumonia Discharge Sum: Summary - Date and Time Date of admission: 04/19/22 14:05 Date of : 04/23/22 Time of : 02:17 - Hospital Course prior to Hospital Course Information: 76-year-old female with multiple comorbidities including advanced dementia, diabetes, A. fib. Admitted for dehydration, sepsis, hypovolemic hypernatremia. Initiated on broad-spectrum antibiotics. Overall doing well with electrolyte disturbances, handling correction of sodium. Patient unfortunately has showed a clinical decline during admission. At that time given her advanced dementia, lack of interest in eating, there was significant concern that her disease had progressed to end-stage Alzheimer's. Extensive family discussion about goals of care. Family did not want a feeding tube. Discussed hospice/hospice type care focusing on quality. Family discussed her condition, goals, prognosis with her POA (nephew), decision made to proceed with hospice style care and discontinue curative measures. Continue to monitor patient closely, she showed gradual decline and passed peacefully in her sleep. Severe sepsis Suspected HCAP Possible UTI -Mamie treated with broad-spectrum antibiotics, blood cultures were negative. Sputum cultures grew gram-negative rods and gram-positive cocci. Worsening chest x-ray during admission. Continued oxygen requirement. After discontinuing antibiotics, patient's condition progressed rapidly . Hypovolemic hypernatremia Hyperkalemia, now hypokalemia Hypomagnesemia -Initiated D50 and insulin on admission. Gradually improved however had significant free water deficit of greater than 6 L. Given fluid resuscitation and volume requirements, patient had worsening respiratory status secondary to volume overload. In light of patient not eating or showing any effort of oral intake, discussion about likely recurrence of electrolyte disturbances given no desire for feeding tube. Discontinued resuscitation and monitoring of labs. Transitioned to hospice style care. Diabetes -Sliding scale insulin on admission CALLIE -Improved with fluid resuscitation -Adequate urine output, greater than 1-1/2 L a day. N.p.o., speech consult placed during admission, unable to participate, appreciate continued following - Additional Data Confirmation of as documented by pronouncing clinician: no pulse, no heart sounds, pupils fixed and dilated Family: at bedside Attending/PCP notified?: Yes Attending physician: Lorne Beltran MD Was code activated?: No Autopsy requested?: No cloth examiner machine notified?: No
== END 2022-04-23 04:20 | disposition expired | DRG 193 ==
LOC: ER 13:12 → 2ND 20:10
PROVIDERS: Family Medicine; Admitting Provider Internal Medicine Adolescent Medicine; Emergency Provider Emergency Medicine; PCP Internal Medicine Adolescent Medicine; Visit Provider Internal Medicine Adolescent Medicine
DX: J18.9 Pneumonia, unspecified organism (principal); A41.9 Sepsis, unspecified organism; J96.01 Acute respiratory failure with hypoxia; N17.9 Acute kidney failure, unspecified; E87.0 Hyperosmolality and hypernatremia; E86.0 Dehydration; I48.91 Unspecified atrial fibrillation; Y95 Nosocomial condition; E87.5 Hyperkalemia; Z89.511 Acquired absence of right leg below knee; E11.9 Type 2 diabetes mellitus without complications; M51.36 Other intervertebral disc degeneration, lumbar region; Z79.4 Long term (current) use of insulin; E03.9 Hypothyroidism, unspecified; G30.9 Alzheimer's disease, unspecified; F02.80 Dementia in other diseases classified elsewhere, unspecified severity, without behavioral disturbance, psychotic disturbance, mood disturbance, and anxiety; Z95.5 Presence of coronary angioplasty implant and graft; E87.6 Hypokalemia; E83.42 Hypomagnesemia; D64.9 Anemia, unspecified; Z87.891 Personal history of nicotine dependence
CPT/HCPCS: 36415; 70450; 71045; 80048; 80053; 82803; 82962; 83605; 83735; 83880; 85007; 85025; 87040; 87070; 87077; 87186; 87205; 92610; 93005; 99291; C9803; J3370; J3475; U0003; U0005